=== PATIENT | male | born 1955 | race Caucasian/White ===

== ENCOUNTER 2018-12-20 12:41 | Inpatient (IN) | payer OTHER, SELFPAY ==
[2018-12-20] VITALS (8 sets, daily range): BP systolic 150–162; BP diastolic 73–94; PULSE 68–77; RESP 16–19; TEMP 36.1–37.1; O2SAT 95–98; BMI 33.0
--- NOTE | 2018-12-20 12:53 | DI.CT.S_ITS ---
PROCEDURE: CT HEAD/BRAIN WO CON INDICATIONS: numness left side TECHNIQUE: Noncontrast 4.5 mm thick angled axial sections acquired from the foramen magnum to the vertex, with coronal and sagittal reformats. For radiation dose reduction, the following was used: automated exposure control, adjustment of mA and/or kV according to patient size. COMPARISON: None. FINDINGS: Image quality: Excellent. CSF spaces: Basal cisterns are patent. No extra-axial fluid collections. The ventricles are symmetric in size and shape. Brain: No intracranial bleeds or masses. There is cerebral volume loss for age, with resultant ventricular and sulcal prominence. There are periventricular and deep white matter chronic small vessel ischemic changes. There is intracranial internal carotid artery atherosclerosis. Skull and face: Calvarium and visualized facial bones appear intact, without suspicious lesions. Sinuses: Mild mucosal thickening in the visualized right maxillary sinus. The mastoids are clear. IMPRESSION: No acute intracranial disease process. Findings telephoned to on 12/20/2018 at 1307 hrs. Dictated by: Charlette Recio MD, PhD on 12/20/2018 at 13:12 Approved by: Charlette Recio MD, PhD on 12/20/2018 at 13:15
--- NOTE | 2018-12-20 13:04 | ED.NEUROSD ---
HPI - Neuro Symptoms/Deficit General Chief Complaint: Neuro Symptoms/Deficit Stated Complaint: left side numbness x1 hour Time Seen by Provider: 12/20/18 12:53 Source: patient Mode of arrival: ambulatory Limitations: no limitations History of Present Illness HPI Narrative: Patient is a 63-year-old male who presents as a code stroke symptoms started 1 hour ago when he got out of the shower. He noticed that his left face and left arm were tingling and numb. He then noticed that he was having some difficulty walking that his left leg may be also felt weird. He has not fallen he was able to walk from the car to the emergency department. He has no chest pain no visual changes no actual weakness. He some chronic back pain and has some ambulation issues at baseline but he states that this is different. Timing confirmed by: spouse Location: left face and left arm Related Data Home Medications Medication Instructions Recorded Confirmed fexofenadine 60 mg PO PRN PRN #0 10/14/17 12/20/18 omeprazole 20 mg PO PRN #0 10/14/17 Allergies Allergy/AdvReac Type Severity Reaction Status Date / Time No Known Drug Allergies Allergy Verified 12/20/18 13:17 Review of Systems Review of Systems GENERAL: Denies chills, fatigue, malaise, fever, sweats, travel HEENT: Denies sinus pain, ear pain, sore throat, difficulty swallowing, neck pain RESPIRATORY: Denies dyspnea, cough, wheezing, hemoptysis, sputum. CARDIOVASCULAR: Denies chest pain, palpitations, orthopnea, edema GASTROINTESTINAL: Denies nausea, vomiting, abdominal pain, diarrhea, constipation, melena. : Denies dysuria, frequency, incontinence, hematuria, urinary retention, flank pain. MUSCULOSKELETAL: Denies weakness, joint pain, or bony pain SKIN: No rash, no erythema, no pruritus NEUROLOGIC: See HPI PSYCHIATRIC: No concerning psychosocial issues. 12 point review of systems is negative except for those stated above and HPI [facility] Medical History Patient denies significant medical history (Acute) Social History household members: significant other Smoking Status: Former smoker Social History household members: significant other Smoking Status: Former smoker Exam Initial Vital Signs Initial Vital Signs: Vital Signs Temperature 96.9 F L 12/20/18 12:41 Pulse Rate 72 12/20/18 12:41 Respiratory Rate 18 12/20/18 12:41 Blood Pressure 162/81 H 12/20/18 12:41 Pulse Oximetry 95 12/20/18 12:41 GENERAL: Well-appearing, well-nourished and in no acute distress. HEENT: Head atraumatic,EOMI, pupils reactive, CARDIOVASCULAR: Regular rate and rhythm without murmurs, rubs or gallops. RESPIRATORY: Breath sounds equal bilaterally, no wheezes rales or rhonchi. ABDOMEN: Soft, nontender. Normoactive bowel sounds all 4 quadrants. No guarding or rebound. EXTREMITIES: Normal range of motion, no clubbing or edema. Neurovascularly intact NEUROLOGICAL: Alert and oriented x4.Normal gait and speech. Cranial nerves II through XII grossly intact. Good [id number], good [id number], strength equal bilaterally, no dysarthria or aphasia, sensation in tact to soft touch decreased on left side, no visual changes, no facial droop SKIN: Warm, dry, no laceration, no petechiae, no rashes or lesions. Scores NIH Stroke Scale Level of Conciousness: Alert, keenly responsive Ask month/age: Answers both questions correctly. Open/close eyes, close hand: Performs both tasks correctly Best gaze horizontal: Normal Visual marie: No visual loss Facial palsy: Normal symetrical movement Left arm drift: No drift for full 10 sec Right arm drift: No drift for full 10 sec Left leg drift: No drift for full 10 sec Right leg drift: No drift for full 10 sec Limb ataxia: Absent Sensory on face/arms/legs: Mild to moderate sensory loss, can tell touch Best language: No aphasia, normal Dysarthria: Normal Extinction or inattention: No abnormality Total NIH Stroke scale score: 1 Course Orders Ordered: ED Orders 12/20/18 12:53 CT head/brain wo con Stat 12/20/18 13:04 Complete Blood Count AUTO DIFF Stat Comprehensive Metabolic Panel Stat Partial Thromboplastin Time Stat Prothrombin Time INR Stat Troponin & CK Cardiac Panel Stat 12/20/18 13:06 EKG-12 Lead Stat 12/20/18 14:00 Consult to Discharge Planning Routine Consult to Occupational Therapy Evaluate & Treat Consult to Physical Therapy Evaluate & Treat Education, smoking cessation ONGOING 12/20/18 14:05 Education, smoking cessation ONGOING 12/21/18 EC echo doppler complete Urgent BMP [Basic Metabolic Panel] Urgent Complete Blood Count AUTO DIFF Stat Lipid Panel Urgent 12/21/18 14:00 MR stroke Urgent Aspirin (Aspirin Ec) 81 mg PO DAILY NALDO Sodium Chloride (Normal Saline 0.9%) 1,000 mls @ 150 mls/hr IV CONT NALDO Last Infusion: 12/20/18 14:03 Dose: 150 mls/hr Admin: 12/20/18 13:24 Dose: 150 mls/hr Discontinued Medications Aspirin (Aspirin Chew) 324 mg PO NOW ONE Stop: 12/20/18 13:24 Last Admin: 12/20/18 13:24 Dose: 324 mg Consultations Consultation #1: Dr. Joe neurology consult in regards to patient's symptoms. NIH is 1 at this time no tPA. Risk outweighs benefit Time: 13:08 Vital Signs - 8 hr 12/20/18 12:41 12/20/18 13:25 12/20/18 13:58 Temperature 96.9 F L Pulse Rate 72 73 72 Respiratory Rate 18 19 18 Blood Pressure 162/81 H Blood Pressure [Left Arm] 150/83 H 153/84 H Pulse Oximetry 95 98 96 12/20/18 14:01 12/20/18 14:30 Temperature Pulse Rate 77 Respiratory Rate 17 Blood Pressure Blood Pressure [Left Arm] 156/80 H Pulse Oximetry 95 98 MDM - Neuro Symptoms/Deficit Lab Data Attestation: I reviewed the patient's lab results. Result diagrams: 12/20/18 13:04 12/20/18 13:04 Lab Results 12/20/18 12/20/18 12/20/18 Range/Units 13:04 13:04 13:04 WBC 8.3 (4.5-11.0) X10^3/uL RBC 4.39 L (4.5-5.9) X10^6/uL Hgb 15.4 (13.5-17.5) g/dL Hct 44.9 (41-53) % MCV 102.4 H (80-100) fL MCH 35.1 H (26-34) PG MCHC 34.2 (30-36) % RDW 14.0 (11.6-14.8) % Plt Count 257 (150-400) X10^3/uL Neut % (Auto) 66.7 (50-75) % Lymph % (Auto) 19.4 L (25-40) % [place] % (Auto) 8.9 (3-14) % Eos % (Auto) 3.6 (2-4) % Baso % (Auto) 1.4 (0-2) % Neut # (Auto) 5500 (8606-2527) /uL Lymph # (Auto) 1600 (8171-5169) /uL [place] # (Auto) 700 (0-900) /uL Eos # (Auto) 300 (0-450) /uL Baso # (Auto) 100 (0-100) /uL PT 10.5 (10.1-12.7) SECONDS INR 0.9 (0.9-1.3) APTT 32 (26.4-36.2) SECONDS Sodium 139 (137-145) mmol/L Potassium 4.1 (3.4-5.1) mmol/L Chloride 105 (98-107) mmol/L Carbon Dioxide 24 (22-32) mmol/L BUN 12 (9-20) mg/dL Creatinine 0.90 (0.66-1.25) mg/dL Estimated GFR > 60.0 (>60) mL/min BUN/Creatinine Ratio 13.3 (6-22) Glucose 113 H (80-110) mg/dL Calcium 9.4 (8.4-10.2) mg/dL Total Bilirubin 0.7 (0.2-1.3) mg/dL AST 35 (17-59) IU/L ALT 37 (21-72) IU/L Alkaline Phosphatase 56 (38-126) U/L Total Creatine Kinase 79 (55-170) U/L CK-MB (CK-2) TNP CK-MB (CK-2) Rel Index TNP Troponin I < 0.012 (0.01-0.034) ng/mL Total Protein 7.9 (6.3-8.2) g/dL Albumin 4.6 (3.5-5.0) g/dL Globulin 3.3 (1.7-4.1) g/dL Albumin/Globulin Ratio 1.4 (1.0-2.8) Imaging Data CT scan - head: Radiologist's impression: PROCEDURE: CT HEAD/BRAIN WO CON INDICATIONS: numness left side TECHNIQUE: Noncontrast 4.5 mm thick angled axial sections acquired from the foramen magnum to the vertex, with coronal and sagittal reformats. For radiation dose reduction, the following was used: automated exposure control, adjustment of mA and/or kV according to patient size. COMPARISON: None. FINDINGS: Image quality: Excellent. CSF spaces: Basal cisterns are patent. No extra-axial fluid collections. The ventricles are symmetric in size and shape. Brain: No intracranial bleeds or masses. There is cerebral volume loss for age, with resultant ventricular and sulcal prominence. There are periventricular and deep white matter chronic small vessel ischemic changes. There is intracranial internal carotid artery atherosclerosis. Skull and face: Calvarium and visualized facial bones appear intact, without suspicious lesions. Sinuses: Mild mucosal thickening in the visualized right maxillary sinus. The mastoids are clear. IMPRESSION: No acute intracranial disease process. Findings telephoned to on 12/20/2018 at 1307 hrs. Dictated by: Charlette Recio MD, PhD on 12/20/2018 at 13:12 ECG Data Attestation: I personally reviewed and interpreted this ECG as follows: Prior ECG tracings: available for review Interpretation: Normal sinus rhythm 70 no changes P interval 180 QTC 414 no previous to compare MDM Narrative Medical decision making narrative: Patient is within tPA window. However patient's NIH stroke scale is 1. Risks outweigh the benefits at this time. The patient ambulated around the room for me appreciate any ataxia on exam. He certainly has good strength all around. At this time will admitted for CVA Dr. Pickard conveniently in the to see and evaluate patient Discharge Plan Departure Patient Disposition: Admitted As Inpatient Clinical Impression: Cerebrovascular accident Qualifiers: CVA mechanism: unspecified Qualified Code(s): I63.9 - Cerebral infarction, unspecified Discharge Date/Time: 12/20/18 14:07 Interventions: ED Discharge Assessment Last Done: 12/20/18 14:06 Admit Date/Time: 12/20/18 13:28 Admit Provider: Alvin Pickard
[2018-12-20 13:20] LABS: Add Manual Diff / Slide Review NO; Basophils Absolute Auto 100 /uL (0-100); Basophils Percent Auto 1.4 % (0-2); Eosinophils Absolute Auto 300 /uL (0-450); Eosinophils Percent Auto 3.6 % (2-4); Hematocrit 44.9 % (41-53); Hemoglobin 15.4 g/dL (13.5-17.5); Lymphocytes Absolute Auto 1600 /uL (1100-4500); Lymphocytes Percent Auto 19.4 % (25-40); Mean Corpuscular HGB Conc 34.2 % (30-36); Mean Corpuscular Hemoglobin 35.1 PG (26-34); Mean Corpuscular Volume 102.4 fL (80-100); Monocytes Absolute Auto 700 /uL (0-900); Monocytes Percent Auto 8.9 % (3-14); Neutrophils Absolute Auto 5500 /uL (1500-7000); Neutrophils Percent Auto 66.7 % (50-75); Platelet Count 257 X10^3/uL (150-400); Red Blood Cell Count 4.39 X10^6/uL (4.5-5.9); White Blood Cell Count 8.3 X10^3/uL (4.5-11.0)
[2018-12-20] MEDS: ASPIRIN 81 MG TAB 324 MG PO (13:24)
[2018-12-20] MEDS: SODIUM CHLORIDE 0.9% 1,000 ML 150 ML IV ×2 (13:24→20:23)
[2018-12-20 13:28] LABS: INR 0.9 (0.9-1.3); Prothrombin Time 10.5 SECONDS (10.1-12.7)
[2018-12-20 13:31] LABS: PTT Partial Thromboplastin Tim 32 SECONDS (26.4-36.2)
[2018-12-20 13:32] LABS: Alanine Aminotransferase 37 IU/L (21-72); Albumin 4.6 g/dL (3.5-5.0); Albumin Globulin Ratio 1.4 (1.0-2.8); Alkaline Phosphatase 56 U/L (38-126); Aspartate Aminotransferase 35 IU/L (17-59); BUN Creatinine Ratio 13.3 (6-22); Bilirubin Total 0.7 mg/dL (0.2-1.3); Blood Urea Nitrogen 12 mg/dL (9-20); Calcium 9.4 mg/dL (8.4-10.2); Carbon Dioxide 24 mmol/L (22-32); Chloride 105 mmol/L (98-107); Creatine Kinase 79 U/L (55-170); Estimated Glomerular Filt Rate > 60.0 mL/min (>60); Globulin 3.3 g/dL (1.7-4.1); Glucose 113 mg/dL (80-110); HEMOLYSIS 17 (0-50); Potassium 4.1 mmol/L (3.4-5.1); Sodium 139 mmol/L (137-145); Total Protein 7.9 g/dL (6.3-8.2)
[2018-12-20 13:44] LABS: Troponin I < 0.012 ng/mL (0.01-0.034)
--- NOTE | 2018-12-20 14:12 | P.HP_ITS ---
History of Present Illness Date Patient Seen: 12/20/18 Time Patient Seen: 14:07 Chief complaint: left side numbness x1 hour Narrative: This patient of Dr. Gupta was usually in good health presents with an hour and a half history of left arm numbness. It started was in the shower. All in his left hand. Seemed to extend up to his left shoulder. No chest pain. No palpitations. No dyspnea on exertion all changes. No headaches. No visual changes. Patient tried to lay down for a little bit and got up and moved just felt weak on the left side. [place] like his balance was off. Did not have any spinning or other changes. No lightheadedness. Continued to feel that way so presented to the emergency room. Patient otherwise has had no other significant changes. Has never had any significant neurologic events. Does not take aspirin. Patient apparently has a history of mildly elevated blood pressure which has been true in the clinic for a while. But no medication was started. He also apparently has had an elevated cholesterol and discussions of statins have been discussed. Did not start him. No other significant changes. Past medical history significant for mild elevation of blood pressure and hyperlipidemia but no other significant changes. Past surgical history. Right leg status post accident many years ago with internal fixation. Medications none. Allergies none. Habits no smoking, no drugs, daily alcohol 1-2 drinks. Social history. 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 . Family history is significant for no strokes. Dad of dementia. No major medical problems. Mom had breast cancer. Sister 2 years older healthy. Patient History Social History Smoking Status: Former smoker Family & Social History Safety & Behavioral: Feels Safe in Current Yes Environment Been Physically Hurt or No Threatened By a Person Tobacco & Substance use: Smoking Status Former smoker alcohol intake frequency 0-2 drinks per day Substance Use Type does not use Meds Home Medications Medication Instructions Recorded Confirmed Type fexofenadine 60 mg PO PRN PRN #0 10/14/17 History omeprazole 20 mg PO #0 10/14/17 History Allergies Allergy/AdvReac Type Severity Reaction Status Date / Time No Known Drug Allergies Allergy Verified 12/20/18 13:17 Review of Systems Review of Systems All systems reviewed & are unremarkable except as noted in HPI and below Exam Vital Signs (past 8 hours): - 12/20/18 12:41 12/20/18 13:25 12/20/18 13:58 Temperature 96.9 F L Pulse Rate 72 73 72 Respiratory Rate 18 19 18 Blood Pressure 162/81 H Blood Pressure [Left Arm] 150/83 H 153/84 H Pulse Oximetry 95 98 96 12/20/18 14:01 Temperature Pulse Rate 77 Respiratory Rate 17 Blood Pressure Blood Pressure [Left Arm] 156/80 H Pulse Oximetry 95 Oxygen Delivery Method Room Air Oxygen Flow Rate 0 Narrative Exam Narrative: Alert male in no acute distress mildly interactive. Skin without rash or abnormality. Normal turgor. HEENT exam shows pupils are equal response to light. Posterior pharynx is unremarkable. No oral lesions. Neck is supple without adenopathy JVD or bruits. Lungs are clear. Heart regular rate and rhythm without murmurs clicks rubs or gallops. Abdomen is soft positive bowel sounds nontender mildly obese. Extremities without cyanosis clubbing edema. Good pulses distally. Neurologic exam shows cranial nerves 2- 12 are intact. Patient is alert and oriented. Sensation appears to be intact although subjectively decreased on the left side. Reflexes are 2+ and symmetric. Patient has decreased strength at 4+ on the left leg and maybe slightly decreased strength in the left arm. Did not walk. Bxvoib-[id number] and xuzq-fa-sacd were normal. Although maybe slightly more difficulty with the left hand psychologically normal Objective Labs Result Diagrams: 12/20/18 13:04 12/20/18 13:04 Labs: Laboratory Results - last 24 hr 12/20/18 12/20/18 12/20/18 13:04 13:04 13:04 WBC 8.3 RBC 4.39 L Hgb 15.4 Hct 44.9 MCV 102.4 H MCH 35.1 H MCHC 34.2 RDW 14.0 Plt Count 257 Neut % (Auto) 66.7 Lymph % (Auto) 19.4 L [place] % (Auto) 8.9 Eos % (Auto) 3.6 Baso % (Auto) 1.4 Neut # (Auto) 5500 Lymph # (Auto) 1600 [place] # (Auto) 700 Eos # (Auto) 300 Baso # (Auto) 100 PT 10.5 INR 0.9 APTT 32 Sodium 139 Potassium 4.1 Chloride 105 Carbon Dioxide 24 BUN 12 Creatinine 0.90 Estimated GFR > 60.0 BUN/Creatinine Ratio 13.3 Glucose 113 H Calcium 9.4 Total Bilirubin 0.7 AST 35 ALT 37 Alkaline Phosphatase 56 Total Creatine Kinase 79 CK-MB (CK-2) TNP CK-MB (CK-2) Rel Index TNP Troponin I < 0.012 Total Protein 7.9 Albumin 4.6 Globulin 3.3 Albumin/Globulin Ratio 1.4 CT scan of the head was unremarkable Assessment & Plan Assessment & Plan narrative: Left-sided numbness arm and weakness which has persisted. An otherwise healthy male with questionable increased blood pressure and hyperlipidemia. NIH 1. Discussed with [place] Citizen. Would not do any further treatment less change. Aspirin has been given. Will obtain cholesterol tomorrow morning MRI tomorrow and echo tomorrow and see how things are. Will watch closely with stroke protocol. Will not manage blood pressure any different it is now and will follow. Patient understands questions answered discussed with him and his .
--- NOTE | 2018-12-20 16:01 | PC.NURSE ---
Day Shift- Report rec'd from ED by RN Coordinator. Pt arrived to unit via stretcher at 1410. Pt stated he walked from stretcher to bed. A&OX4, oriented to call light. Denies pain, nausea, shortness of breath, chest pain. NIH score is 2. Pt c/o left side numbness to face and extending to left limbs. Pt states overall feeling weaker to left side compared to his baseline. NIH score performing tasks, pt has fairly equal strength to his extremities. Pt's Crystal at bedside. Aware of MRI, ECHO, and lab work pending tomorrow.
[2018-12-21] VITALS (10 sets, daily range): BP systolic 141–179; BP diastolic 82–98; PULSE 68–78; RESP 16; TEMP 36.4–37; O2SAT 92–96
--- NOTE | 2018-12-21 | DI.ECHO.S_ITS ---
[place] +---------+ [facility] +---------+ : : [address] : : : : [id number] : : : : Phone: [phone]+ Echocardiogram Report + + :Name: RICKEY MASSEY Study Date: 12/21/2018 Height: 75 in : :[facility] Exam Location: IS Weight: 257 lb : : Gender: Male BSA: 2.4 m2 : :: 1955 Age: 63 yrs BP: 151/80 mmHg: :Reason For Study: Left sided numbness and weakness : :Ordering Physician: Alvin : :Neeraj Performed By: Yamileth Page : + + Interpretation Summary -Doppler imaging at proximal ascending aorta demonstrates a vascular structure anterior to the ascending aorta with continuous flow which is more prominent during diastole. This could represent a normal structure such as right coronary artery with a high take off or, less likely but possible, a false lumen and aortic dissection. -There is no other echocardiographic finding of dissection; specifically, there is no aortic insufficiency, aortic root is normal size and there is no perocardial effusion. However, given presentation with stroke-like symptoms, recommend a chest CTA for further evaluation. -The findings were communicated to Dr. Gonzalez. Procedure: A two-dimensional transthoracic echocardiogram with color flow and Doppler was performed. The study quality was technically adequate. There is no prior echocardiogram noted for this patient. A saline contrast injection was performed to assess for cardiac shunting. The patient was in normal sinus rhythm during the exam. Left Ventricle: The left ventricle is normal in size, wall thickness, and systolic function without any focal wall motion abnormalities. Proximal septal thickening is noted. The ejection fraction is estimated to be 60-65%. Diastolic parameters suggest a relaxation abnormality of the left ventricle, consistent with probable normal filling pressures. Right Ventricle: The right ventricle is normal in size and function. Atria: The left atrial size is normal. Right atrial size is normal. There is no Doppler evidence for an interatrial shunt. Injection of contrast documented no interatrial shunt. Mitral Valve: The mitral valve is normal in structure and function. There is trace mitral regurgitation. Aortic Valve: The aortic valve is trileaflet. The aortic valve is mildly calcified. There is no aortic valve stenosis. No aortic regurgitation is present. Tricuspid Valve: The tricuspid valve is normal in structure and function. There is a trace or physiologic amount of tricuspid regurgitation. Pulmonary artery pressures cannot be estimated because of the lack of a measurable TR jet velocity. Pulmonic Valve: The pulmonic valve is not well visualized. There is a trace or physiologic amount of pulmonic regurgitation. Great Vessels: The aortic root is normal size. The ascending aorta is at the upper limits of normal in size. The pulmonary artery is not well visualized, but is probably normal size. The IVC is dilated (diameter is greater than 2.1 cm) yet it collapses greater than 50% with a sniff. This suggests a right atrial pressure of 8 mm Hg. Pericardium/ Pleura There is no pericardial effusion. There is no pleural effusion. MMode/2D Measurements & Calculations LVIDd: 4.2 cm LVOT diam: 2.3 cm LVIDs: 3.0 cm Ao root diam: 3.7 cm FS: 30.2 % asc Aorta Diam: 3.4 cm EPSS: 0.00 cm IVSd: 1.1 cm LVPWd: 0.91 cm LV anders. diameter/BSA (cm/m^2): 1.7 LV sys. diameter/BSA (cm/m^2): 1.2 LA A2 area: 28.7 cm2 RA long axis: 5.0 cm LA A4 area: 23.7 cm2 RA area: 18.7 cm2 LA length (vol): 6.0 cm RA vol: 59.5 ml LA vol: 96.2 ml RA : 24.4 ml/m2 LA vol index: 39.4 ml/m2 IVC diam: 2.6 cm RVD1 (basal): 4.5 cm RVD2 (mid): 3.5 cm TAPSE: 2.0 cm Doppler Measurements & Calculations Ao V2 max: 180.5 cm/sec LVOT Max Damon: 96.9 cm/sec Ao V2 mean: 129.1 cm/sec LV V1 max P.8 mmHg Ao max P.0 mmHg LV V1 VTI: 20.1 cm Ao mean P.4 mmHg GWEN(I,D): 2.6 cm2 Ao V2 VTI: 33.6 cm GWEN(V,D): 2.3 cm2 sev ratio: 0.60 GWEN indexed to BSA (cm^2/m^2): 1.1 MV E max damon: 60.5 cm/sec PA V2 max: 76.5 cm/sec MV A max damon: 73.9 cm/sec PA V2 mean: 58.1 cm/sec MV E/A: 0.82 PA mean P.4 mmHg Med Peak E' Damon: 6.1 cm/sec PA Accel Time: 0.08 sec E/E' med: 9.9 Lat Peak E' Damon: 12.6 cm/sec E/E' lat: 4.8 E/e' average: 7.4 MV dec time: 0.25 sec MV P1/2t: 72.9 msec MV P1/2t max damon: 60.3 cm/sec SV(LVOT): 86.8 ml MVA(P1/2t): 3.0 cm2 Electronically signed by: Trey Renee M.D. on Reading Physician:12/21/2018 05:06 PM
--- NOTE | 2018-12-21 00:39 | PC.NURSE ---
2300- Pt admit for L sided numbness & tingling on both arm and leg. States weakness has gone away since admit, but numbness still remains. Qshift NIH scores taking place w/ highest of 2; moving independently in room; tolerating regular diet. Qshift BG checks. Pt aware he is fasting now until lipid panel at 0500. NS running as ordered into R AC. 0000- NIH score of 1. 0400- No changes in mentation or NIH. NS running per orders.
[2018-12-21] MEDS: SODIUM CHLORIDE 0.9% 1,000 ML 150 ML IV ×2 (03:07→10:01)
[2018-12-21 06:53] LABS: Add Manual Diff / Slide Review NO; Basophils Absolute Auto 100 /uL (0-100); Basophils Percent Auto 1.2 % (0-2); Eosinophils Absolute Auto 500 /uL (0-450); Eosinophils Percent Auto 6.8 % (2-4); Hematocrit 42.5 % (41-53); Hemoglobin 14.9 g/dL (13.5-17.5); Lymphocytes Absolute Auto 1900 /uL (1100-4500); Lymphocytes Percent Auto 24.4 % (25-40); Mean Corpuscular Hemoglobin 35.9 PG (26-34); Mean Corpuscular Volume 102.6 fL (80-100); Monocytes Absolute Auto 600 /uL (0-900); Monocytes Percent Auto 7.7 % (3-14); Neutrophils Absolute Auto 4700 /uL (1500-7000); Neutrophils Percent Auto 59.9 % (50-75); Platelet Count 235 X10^3/uL (150-400); Red Blood Cell Count 4.14 X10^6/uL (4.5-5.9); Red Cell Distribution Width 14.1 % (11.6-14.8); White Blood Cell Count 7.8 X10^3/uL (4.5-11.0)
[2018-12-21 07:05] LABS: BUN Creatinine Ratio 11.3 (6-22); Blood Urea Nitrogen 9 mg/dL (9-20); Calcium 8.9 mg/dL (8.4-10.2); Carbon Dioxide 27 mmol/L (22-32); Chloride 105 mmol/L (98-107); Cholesterol 224 mg/dL (140-199); Estimated Glomerular Filt Rate > 60.0 mL/min (>60); Glucose 101 mg/dL (80-110); HDL Cholesterol 46 mg/dL (40-60); HEMOLYSIS < 15 (0-50); LDL Cholesterol Calculated 141 mg/dL (<100); Potassium 3.8 mmol/L (3.4-5.1); Sodium 137 mmol/L (137-145); Triglycerides 183 mg/dL (35-150)
--- NOTE | 2018-12-21 08:33 | PM.PN.1 ---
Subjective Date Patient Seen: 12/21/18 Time Patient Seen: 08:33 Interval history: Patient seen in follow-up of left-sided numbness. Patient feeling really no different. Reporting facial numbness which apparently he had yesterday but did not say anything about. All left-sided. All left-sided numbness of the hand and leg. Got up and walked. Still feeling unsteady. But was able to get up and urinate. No other changes Exam Vital Signs (past 8 hours): - 12/21/18 05:03 12/21/18 08:03 Temperature 98.6 F 97.5 F L Pulse Rate 68 78 Respiratory Rate 16 16 Blood Pressure 168/92 H 165/82 H Pulse Oximetry 96 95 Oxygen Delivery Method Room Air Oxygen Flow Rate 0 Narrative Exam Narrative: Alert male sitting comfortably in no acute distress. Lungs are clear. Heart regular rate and rhythm. Abdomen is soft positive bowel sounds nontender. Neurologic exam is unchanged. Still seems a little weak on the left leg but no definitive other findings. Objective Labs Result Diagrams: 12/21/18 06:30 12/21/18 06:30 Labs: Laboratory Results - last 24 hr 12/20/18 12/20/18 12/20/18 13:04 13:04 13:04 WBC 8.3 RBC 4.39 L Hgb 15.4 Hct 44.9 MCV 102.4 H MCH 35.1 H MCHC 34.2 RDW 14.0 Plt Count 257 Neut % (Auto) 66.7 Lymph % (Auto) 19.4 L [place] % (Auto) 8.9 Eos % (Auto) 3.6 Baso % (Auto) 1.4 Neut # (Auto) 5500 Lymph # (Auto) 1600 [place] # (Auto) 700 Eos # (Auto) 300 Baso # (Auto) 100 PT 10.5 INR 0.9 APTT 32 Sodium 139 Potassium 4.1 Chloride 105 Carbon Dioxide 24 BUN 12 Creatinine 0.90 Estimated GFR > 60.0 BUN/Creatinine Ratio 13.3 Glucose 113 H Calcium 9.4 Total Bilirubin 0.7 AST 35 ALT 37 Alkaline Phosphatase 56 Total Creatine Kinase 79 CK-MB (CK-2) TNP CK-MB (CK-2) Rel Index TNP Troponin I < 0.012 Total Protein 7.9 Albumin 4.6 Globulin 3.3 Albumin/Globulin Ratio 1.4 Triglycerides Cholesterol LDL Cholesterol, Calc HDL Cholesterol 12/21/18 12/21/18 12/21/18 06:30 06:30 06:30 WBC 7.8 RBC 4.14 L Hgb 14.9 Hct 42.5 MCV 102.6 H MCH 35.9 H MCHC 35.0 RDW 14.1 Plt Count 235 Neut % (Auto) 59.9 Lymph % (Auto) 24.4 L [place] % (Auto) 7.7 Eos % (Auto) 6.8 H Baso % (Auto) 1.2 Neut # (Auto) 4700 Lymph # (Auto) 1900 [place] # (Auto) 600 Eos # (Auto) 500 H Baso # (Auto) 100 PT INR APTT Sodium 137 Potassium 3.8 Chloride 105 Carbon Dioxide 27 BUN 9 Creatinine 0.80 Estimated GFR > 60.0 BUN/Creatinine Ratio 11.3 Glucose 101 Calcium 8.9 Total Bilirubin AST ALT Alkaline Phosphatase Total Creatine Kinase CK-MB (CK-2) CK-MB (CK-2) Rel Index Troponin I Total Protein Albumin Globulin Albumin/Globulin Ratio Triglycerides 183 H Cholesterol 224 H LDL Cholesterol, Calc 141 H HDL Cholesterol 46 Assessment & Plan Assessment & Plan narrative: Left-sided numbness arm and leg weakness mild. No real change. Awaiting MRI. On an aspirin. Tele was negative. Echo today. Physical therapy today. Depending on results home tomorrow if stable. Quality VTE Deep Vein Thrombosis/Pulmonary Embolism Present on Admission: No
--- NOTE | 2018-12-21 09:21 | CM.DANOTE ---
DCP: Case received, EMR reviewed and met with patient. Introduced self and role. White board updated in patient's room. Retrieved information from patient, regarding his baseline health. DCP template completed with information obtained. Patient is a 63 year old male who admitted yesterday afternoon to the care of the hospitalist team. PCP: Dr. Gupta. Payer: confirmed: [facility]. Patient came to hospital due to numbness and tingling on his left arm, as well as shoulder and leg. He had an MRI this morning. Patient also has history of HTN. Met briefly with patient. He is alert and oriented, works out of his home. He stated, even though he is having these symptoms, he's able to walk and get around. He resides with his , Linsey, in [facility]. P: DCP to continue to follow. Patient should be able to go home when stable. Ericka Burns RN/Store Sales Consultant
[2018-12-21] MEDS: ASPIRIN EC 81 MG TABLET PO (10:01)
--- NOTE | 2018-12-21 10:09 | PC.NURSE ---
AM NOTE - alert, no complaint pain, MRI in this am and taken for scan via wc, ret to bed, states continues with tingling, numb type sensations along l lip area, lue, lle, able to move all extremities, hold straight for count 10, personnel monitor are equal and strong, bs clear, states no dizziness when standby assist to br to void, +bt, no nausea, salomón gen diet. ra 98%, hr 78.
--- NOTE | 2018-12-21 11:10 | PT.IIE ---
Medical History (Last Reviewed 12/20/18 @ 16:31 by Mimi Adams DO) Patient denies significant medical history (Acute) Physical Therapy Inpatient Evaluation/Re-Eval M1 PT/OT-IP Prior Functional Status Start: 12/21/18 08:19 Freq: NEEDED Status: Active Protocol: Document 12/21/18 11:10 RS (Rec: 12/21/18 13:06 RS [email or web address]) Medical Review Prior Functional Status Medical History Reviewed Yes Diet/Fluid Consistency Regular Communication no known deficits Mobility and Gait completely ind, no AD, no falls Activities of Daily Living and IADL's ind Prior Functional Level (Other details) considers himself active Social History Household Members significant other Living Arrangements House Number of Floors (Floors) One Floor Employment Status [employer] Employed Additional Social History 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 M2 PT-IP Current Condition Start: 12/21/18 08:19 Freq: NEEDED Status: Active Protocol: Document 12/21/18 11:10 RS (Rec: 12/21/18 13:06 RS [email or web address]) Physical Therapy Current Condition Current Condition Evaluation Date 12/21/18 Treatment Diagnosis L weakness Onset Date 12/20/18 M3 PT-IP Subjective Start: 12/21/18 08:19 Freq: NEEDED Status: Active Protocol: Document 12/21/18 11:10 RS (Rec: 12/21/18 13:06 RS [email or web address]) Subjective Physical Therapy Visit Type Type Initial Evaluation Visit Start Time 10:30 Visit Stop Time 11:10 Total Visit Minutes 40 Physical Therapy Visit Comments Patient Comments Pt feels like his strength is improved on the L side but still doesn't feel normal. Patient Goals go home, get back to normal Therapy Pain Assessment Pain When Pain Assessed During Mobility Pain Present Pain Present Denied Pain M4 PT-IP Mobility and Gait Start: 12/21/18 08:19 Freq: NEEDED Status: Active Protocol: Document 12/21/18 11:10 RS (Rec: 12/21/18 13:06 RS [email or web address]) PT-Bed Mobility Assessment Rolling Level of Assist Independent Supine to Sit Supine to Sit Independent Sit to Supine Sit to Supine Independent Scooting Scooting to Edge of Bed Independent Scooting Up and Down in Bed Independent PT-Transfer Assessment Sit to and From Stand Sit to and from Stand Independent Equipment Transfer Assistive Device None Transfers Transfer Destination Bed Chair Transfer Technique walked Transfer Ability Level of Assist Independent Gait Assessment Gait Gait Assistance Required: Independent Distance (Feet) 500 Assistive Devices Assistive Device None Gait Deviations General Gait Pattern Within Normal Limits Stair Climbing Assessment Evaluation Level of Assist On Stairs Independent Devices Stair Climbing Assistive Devices None Technique/Endurance Stair Climbing Direction Ascend and Descend PT-Balance Assessment Sitting Balance and Reactions Static Sitting Balance Ability Normal Dynamic Sitting Balance Ability Normal Standing Balance and Reactions Static Standing Balance Ability Normal Dynamic Standing Balance Ability Normal Device Used none Comments Other Balance Tests/Deviations/Treatment CARRERA 56/56, DGI 24/24 : M5 PT-IP Objective Assessments Start: 12/21/18 08:19 Freq: NEEDED Status: Active Protocol: Document 12/21/18 11:10 RS (Rec: 12/21/18 13:06 [email or web address]) Orientation Orientation/Cognition Level of Alertness Alert Orientation Name Age Birthday Month Date Year Day of Week Place Situation Language Function Ability No Deficits Noted Safety Awareness Understands Safety Issues Memory Description No Deficits Noted Gross Range of Motion Upper Extremity ROM Assessment Within Functional Limits Lower Extremity ROM Assessment Within Functional Limits Strength Upper Extremity Strength Assessment Left Impaired Lower Extremity Strength Assessment Left Impaired Comments Strength Comments RUE 5/5, LUE grossly 4/5 RLE 5/5, LLE grossly 4+/5 Coordination Assessment Assessment Finger to Nose Test Minimal Impairment Pronation/Supination Test Normal Performance Foot Tapping Test Normal Performance Heel on Triana Test Normal Performance Sensation Assessment Sensation Gross Sensation Left UE Impaired Light Touch Impaired Proprioception (Position) Impaired Sensation Description Tingling Muscle Tone Muscle Tone WNL No M6 PT-IP Treatment Start: 12/21/18 08:19 Freq: NEEDED Status: Active Protocol: Document 12/21/18 11:10 RS (Rec: 12/21/18 13:06 [email or web address]) Physical Therapy Treatment Education Education Provided Safety M7 PT-IP Assessment and Plan Start: 12/21/18 08:19 Freq: NEEDED Status: Active Protocol: Document 12/21/18 11:10 RS (Rec: 12/21/18 13:06 [email or web address]) PT Summary Assessment and Plan Potential Rehabilitation Potential Excellent Status of Condition at Evaluation Stable Summary Impairments Coordination Sensation Progress Towards Goals Safe For Discharge Assessment Summary Pt presents with mild L sided weakness and impaired coordination that are causing pt to feel a little insecure with ambulation compared to normal. However, pt was completely steady with gait and balance testing, scoring 56/56 Carrera and 24/24 DGI. Patient is at a low fall risk and safe to discharge home once medically cleared. Pt would benefit from OPPT for high level balance and coordination testing to return to PLOF. While patient is still here at , recommend walking at least 3-4x/day, but there are no acute PT goals/ needs at this time. Will sign off. Pt in agreement with this plan. Goals Bed Mobility Goal Independent Transfer Goal Independent Gait Goal Independent Days to Meet Goals 0 Frequency of Treatment Frequency Of Treatment Discharge Recommendations To Nursing Amount of Assist Needed Independent Discharge Recommendations PT Discharge Recommendations Home Outpatient PT Equipment Needed for Home Before none Discharge
--- NOTE | 2018-12-21 14:00 | DI.MRI.S_ITS ---
PROCEDURE: MR STROKE Pre- and post-contrast brain MRI, non-contrast brain MR angiogram, pre- and postcontrast neck MR angiogram INDICATIONS: left side numbness and weakness TECHNIQUE: Brain: Noncontrast axial T1 spin echo, axial T2 fast spin echo, sagittal and axial FLAIR, coronal T2 fast spin echo, axial gradient echo, axial diffusion and ADC through the brain. After the administration of contrast, axial 3D VIBE of the cranial vasculature and brain. Brain MRA: Non-contrast 3-D time of flight MR angiogram, with multiple ehwdyar-wqkssbcnt-onjkaccfin (MIP) reformats performed. Neck MRA: Axial and sagittal TruFISP through the neck. Coronal dynamic MR angiogram during administration of contrast in the arterial and venous phases, with 3-dimenstional yhkzvdu-pamhnzamp-enttijvsml (MIP) reformats constructed from subtraction images. COMPARISON: [facility], CT, CT HEAD/BRAIN WO CON, 12/20/2018, 12:53. FINDINGS: Image quality: Excellent. BRAIN: CSF spaces: Ventricles are normal in size and shape. Basal cisterns are patent. No extra-axial fluid collections. Brain: No intracranial bleeds or mass effects. Ferguson-white matter interface is normal. Diffusion weighted images show a definite focus of acute or subacute ischemic injury to the lentiform nuclei on the right, posterior third, measuring 8 x 8 mm in maximal dimension. This has no mass effect or hemorrhage associated. Mild microvascular atherosclerotic change is seen elsewhere within the deep white matter of each hemisphere.. Brainstem appears normal. Normal intravascular flow voids are present. No abnormal intracranial enhancement. Skull and face: Calvarial marrow signal is normal. Orbits appear normal. Sinuses: Sinuses and mastoids are clear. BRAIN MR ANGIOGRAM: Anterior circulation: Intracranial internal carotid arteries are normal in size and enhancement. The flow within the paired anterior cerebral arteries is normal and symmetric. The flow within the middle cerebral arteries is normal and symmetric. The anterior communicating artery is seen. No stenoses, occlusions, or aneurysms. Posterior circulation: The visualized portions of the vertebral arteries demonstrate normal caliber, and join to form a normal appearing basilar artery. The flow within the posterior cerebral arteries is normal and symmetric. No stenoses, occlusions, or aneurysms. NECK MR ANGIOGRAM: Carotids: Great vessels demonstrate a conventional anatomy as they arise from the aortic arch. The origins of the common carotid arteries appear patent. The calibers and courses of both common carotid arteries are normal. The bifurcation regions appear normal bilaterally. The internal carotid arteries demonstrate normal course and caliber. Posterior circulation: The origins of the vertebral arteries appear patent. More superior portions of both vertebral arteries demonstrate normal course and caliber, and join to form a normal appearing basilar artery. Miscellaneous: Subclavian arteries appear patent. Pre-contrast images through the neck show no soft tissue abnormalities. IMPRESSION: BRAIN MRI: Small lacunar infarction measuring 8 x 8 mm is present, acute or subacute, involving the lentiform nuclei on the right, without mass effect or hemorrhage. This is in an area that appeared entirely normal on CT scanning one day ago, however a small acute infarction present at that time generally would not be detectable by CT scanning. BRAIN MR ANGIOGRAM: Normal intracranial MR angiogram. NECK MR ANGIOGRAM: Normal cervical MR angiogram. Dictated by: Andres Hale M.D. on 12/21/2018 at 9:20 Approved by: Andres Hale M.D. on 12/21/2018 at 9:27
--- NOTE | 2018-12-21 17:00 | DI.CT.S_ITS ---
PROCEDURE: CT ANGIO CHEST INDICATIONS: Possible thoracic aneurysm TECHNIQUE: After the administration of intravenous contrast, 2.5 mm thick sections acquired from the lung apices to the posterior lung bases. Maximum intensity projection (MIP) oblique sagittal reformats were then acquired parallel to the aortic arch. For radiation dose reduction, the following was used: automated exposure control. COMPARISON: None. FINDINGS: Image quality: Excellent. Aorta: Aorta and great vessels are normal in size. No mural irregularity or contrast extravasation to suggest aortic injury. Mediastinum: No hematomas. Heart size is normal. No evidence of coronary arterial calcification. No pericardial effusion. No mediastinal or hilar adenopathy by size criteria. Central pulmonary arteries are normal in size. Esophagus is normal in caliber. Small hiatal hernia. Lungs and pleura: No acute airspace opacities. No pleural effusions or pneumothorax. Central and peripheral airways are patent and normal in caliber. Bones and chest wall: No axillary adenopathy by size criteria. Thyroid gland is within normal limits. No suspicious bony lesions. No vertebral body compression fractures. Abdomen: Visualized portions of the upper abdomen demonstrate diffusely decreased hepatic density. IMPRESSION: 1. No evidence of thoracic aortic aneurysm. 2. No acute process. Dictated by: Rajendra Qureshi M.D. on 12/21/2018 at 17:30 Approved by: Rajendra Qureshi M.D. on 12/21/2018 at 17:32
--- NOTE | 2018-12-21 17:13 | OT.IP.EVAL ---
Past Medical History (Last Reviewed 12/20/18 @ 16:31 by Mimi Adams DO) Patient denies significant medical history (Acute) Occupational Therapy Inpatient Evaluation/Re-Eval M1 PT/OT-IP Prior Functional Status Start: 12/21/18 08:19 Freq: NEEDED Status: Active Protocol: Document 12/21/18 11:10 RS (Rec: 12/21/18 13:06 RS [email or web address]) Medical Review Prior Functional Status Medical History Reviewed Yes Diet/Fluid Consistency Regular Communication no known deficits Mobility and Gait completely ind, no AD, no falls Activities of Daily Living and IADL's ind Prior Functional Level (Other details) considers himself active Social History Household Members significant other Living Arrangements House Number of Floors (Floors) One Floor Employment Status [employer] Employed Additional Social History 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 M1 PT/OT-IP Prior Functional Status Start: 12/21/18 16:45 Freq: NEEDED Status: Active Protocol: Document 12/21/18 16:46 [facility] (Rec: 12/21/18 17:13 [facility] [id number]) Medical Review Prior Functional Status Medical History Reviewed Yes Diet/Fluid Consistency Regular Communication no known deficits Mobility and Gait completely ind, no AD, no falls Activities of Daily Living and IADL's ind Prior Functional Level (Other details) considers himself active Social History Household Members significant other Living Arrangements House Number of Floors (Floors) 3 or More Floors Number of Stairs To Enter/Railing? No steps to the main level . 7 steps with left rail going up , platform, and 7 steps with right rail going up to the bedroom, Basement 7 step , platform and another 7 steps with left handrail. 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 M2 OT-IP Current Condition Start: 12/21/18 16:45 Freq: Status: Active Protocol: Document 12/21/18 16:46 [facility] (Rec: 12/21/18 17:13 [facility] [id number]) Occupational Therapy Current Condition Current Condition Evaluation Date 12/21/18 Treatment Diagnosis Small Lucunar infarction lentiform nuclei on the right Weight Bearing Status Weight Bearing Status Weight Bear as Tolerated M3 OT- IP Subjective and Pain Start: 05/20/19 16:45 Freq: Status: Active Protocol: Document 12/21/18 16:46 [facility] (Rec: 12/21/18 17:13 [facility] [id number]) OT- Subjective Occupational Therapy Visit Type Type Initial Evaluation Visit Start Time 15:00 Visit Stop Time 15:45 Total Visit Minutes 45 Occupational Therapy Visit Comments Patient Comments Pt agreeable to do cognitive assessments along with FMS. OT Pain Assessment Pain When Pain Assessed At Rest Pain Present Pain Present Denied Pain M4 OT- IP ADL's Start: 12/21/18 16:45 Freq: Status: Active Protocol: Document 12/21/18 16:46 [facility] (Rec: 12/21/18 17:13 [facility] [id number]) OT ADL-Toileting General Evaluation Toileting Ability Independent M5 OT- IP IADL's Start: 12/21/18 16:45 Freq: Status: Active Protocol: Document 12/21/18 16:46 [facility] (Rec: 12/21/18 17:13 [facility] [id number]) OT-Instrumental Activities of Daily Living Medication Management Medication Management No Deficits Identified Money Management Money Management Caregiver Provides Assistance Driving Driving Comments Pt states drives. M6 OT- IP Functional Cognition Start: 12/21/18 16:45 Freq: Status: Active Protocol: Document 12/21/18 16:46 [facility] (Rec: 12/21/18 17:13 [facility] [id number]) Cognitive Factors Limiting Selfcare Function Cognitive Ability Level of Alertness Alert Patient Orientation Name Age Birthday Month Date Year Day of Week Place Situation Attention Span Ability Capable of Focused Attention Capable of Sustained Attention Ability to Follow Commands Able to Follow Multi-Step Commands Problem Solving Ability Needs Assist to Identify Solutions Cognitive Tests ACL Pt scored 5.4 put of 6.0 with implies pt may live alone and work in an environment for wide margin of errors. Pt may not be safe to work in job with high potential for industrial accidents. Closter and error problem solving increasing improvement, recognizes conflict but inflexible insisting on own methods despite secondary effects. Cognitive Comments Cognitive Assessment Comments Pt scored 48 second on Closter Making B while implies no deficits for attention, visual screening ability, processing speed, and executive functioning. OT- Vision and Hearing OT- Hearing Assessment OT- Hearing Assessment WFL OT- Vision Assessment Visual Acuity Glasses For Reading M7 OT- IP Mobility and Balance Start: 12/21/18 16:45 Freq: Status: Active Protocol: Document 12/21/18 16:46 [facility] (Rec: 12/21/18 17:13 [facility] [id number]) OT- Bed Mobility Assessment Rolling Type of Rolling Roll to Right OT-Transfer Assessment Sit to and From Stand Sit to and from Stand Independent Transfers Transfer Ability Independent Technique Transfer Destination Bed Comments Mobility Comments Independent for bed mobility and to walk in the room with no device. OT- Balance Assessment Sitting Balance and Reactions Static Sitting Balance Ability Normal Dynamic Sitting Balance Ability Normal Standing Balance and Reactions Static Standing Balance Ability Normal Comments Other Balance Tests/Deviations/Treatment Per PT eval pt scored 56/56 : on the CARRERA. M8 OT- IP Objective Assessments Start: 12/21/18 16:45 Freq: Status: Active Protocol: Document 12/21/18 16:46 [facility] (Rec: 12/21/18 17:13 [facility] [id number]) OT Gross Range of Motion Upper Extremity Range of Motion Assessment Within Functional Limits OT Strength Comments Strength Comments LUE 4/5 OT- Coordination Assessment Upper Extremity Finger to Nose Test Left UE Impaired Comments Coordination Comments Pt able to berry picker coins with left hand, in hand manipulation with increased time and needing to stabilize hand on the table when stacking coins. Pt's left hand coordination less smooth and a bit tremulous at times. Encourage pt to put lotion, different textures to try to help desensitize left arm/leg. In addition to use his hobbies of guitar and piano to help gauge speed, coordination, smoothing of left hand. 9-Hole Peg Hand Test Hand Right Scoring Time 28 Interpretation Impaired Norm For Patients Age/Sex 23 Left Scoring Time 40 Interpretation Impaired Norm For Patients Age/Sex 25 OT Sensation Assessment Comments Summary Comments Pt intact for all sensation for light touch, noted numbness throughout left side. Pt states felt harder to berry picker pegs due to numbness. M9 OT- IP Assessment and Plan Start: 12/21/18 16:45 Freq: Status: Active Protocol: Document 12/21/18 16:46 [facility] (Rec: 12/21/18 17:13 [facility] [id number]) OT Summary Assessment and Plan Potential Rehabilitation Potential Good Analytic Complexity at Evaluation Low Summary OT Impairments Coordination Functional Cognition Functional Mobility Bathing Progress Towards Goals Progressing Toward Goals Assessment Summary Pt low complexity and mild decrease for higher cognitive functioning , however pt feel does to did not sleep well. Decreased coordination of left hand for smaller items, speed and smoothness, otherwise able to get around in the room with no device independently. Pt has a very supportive to assist at home. Educated to be careful especially for IADL and gradually get back to yard work. Goals Bathing Goal Independent Patient/Caregiver Education Goal Caregiver Independent Assisting Patient OT-Other Goals Pt to be able to get on and off the floor independently as pt at home often plays with grand children. Pt to be able to carry waste paper basket to stimulate taking the garbage out at home independently. Days to Meet Goals 2 Frequency of Treatment Frequency Of Treatment Once a Day Treatment Plan OT Treatment Plan ADL Training Functional Cognition Training Functional Mobility Patient/Family Education Discharge Planning Other Treatment Recommendations and Next shower, repeat FMS assessments Treatment Focus Discharge Recommendations OT Discharge Recommendations Home with Assistance Home Equipment Needs possible shower chair
--- NOTE | 2018-12-21 20:40 | PC.NURSE ---
Addendum entered by Jammie Choudhary R.N. 12/21/18 21:48: Patient with BP 179/95, 162/97, notified Dr. Mcclure regarding current high . New order obtained for Metoprolol IR 25 mg PO BID. Original Note: Elizabeth shift note: Patient awake and alert, return from CTA exam in stable condition. NIH 2, c/o numbness and tingling to LLE including feet, toes, upper dorsal thigh, left forearm (extending to elbow), left lower face. No weakness noted. Difficulty with LUE coordination. Patient states symptoms remain unchanged, no worsening through shift. 2030 C/O of constant dull headache, 2/10. States his headache is similar in nature as in the past when at home. Takes Tylenol which provides adequate relief. No changes in sensory or motor deficits. No visual disturbance. Notified Dr. Mcclure, and obtained order for Tylenol 650 mg PO PRN.
[2018-12-21] MEDS: ACETAMINOPHEN 325 MG TABLET 650 MG PO (20:55)
[2018-12-21] MEDS: METOPROLOL IR 25 MG TABLET PO (22:17)
[2018-12-22] VITALS (9 sets, daily range): BP systolic 129–171; BP diastolic 76–90; PULSE 63–74; RESP 16–20; TEMP 36.6–36.9; O2SAT 94–97
--- NOTE | 2018-12-22 00:22 | PC.NURSE ---
2300- Pt admit for L sided numbness/tingling in both arm and leg. 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 See MD notes for MRI & CTa results. Pt aware of why he is still in the hospital being monitored. Saline locked, moving indep in room, qshift BG checks. Telemetry in place reading SR, pt remains HTNsive--new order of PO metoprolol given w/ previous shift. 0000- NIH scoring completed, pt denies pain, VSS. 0400- No changes in pt's mentation or NIH status, cont to move indep in room.
--- NOTE | 2018-12-22 08:58 | P.PN_ITS ---
Subjective Date Patient Seen: 12/22/18 Time Patient Seen: 08:11 Interval history: Patient 63-year-old male admitted about 36 hours ago following acute onset of left body numbness and weakness. Evaluation continued through the next 36 hours including the head CT of chest to exclude aneurysmal dilatation MRI of brain and cerebral vasculature and echocardiogram which showed no focus or potential source for clot formation. Patient feels still a little weak on his left side still feels the numbness at the same degree. MRI showed 8 x 8 mm area of apparent ischemic insult without bleeding or swelling in the right brain. Vasculature did not show any significant occlusion and carotids. He denies any pain still feels a little unsteady is bothered by the left-side numbness and tingling. No trouble with speech swallowing is normal. Physical therapy thinks he is going to need extended physical therapy but doing pretty well. Will work on that still today initiate statins monitor his blood pressure since he had a hypertensive response during the night make sure he tolerates blood pressure medications anticipate home tomorrow with outpatient physical therapy and occupational therapy and probable telemetry monitoring to exclude that this was arrhythmia focused. Exam Vital Signs (past 8 hours): - 12/22/18 05:32 Temperature 98.3 F Pulse Rate 66 Respiratory Rate 16 Blood Pressure 136/77 Pulse Oximetry 97 Oxygen Delivery Method Room Air Oxygen Flow Rate 0 Narrative Exam Narrative: Patient is sitting comfortably in bed and cognitively intact clear questions speech normal PERRLA EOMs intact Facial muscles all symmetrical Motor intact although slow late weakness on the left side in and fingers and in feet Speech clear Heart shows regular rate and rhythm good blood pressure no murmur Lungs clear Objective Labs Result Diagrams: 12/21/18 06:30 12/21/18 06:30 Assessment & Plan Assessment & Plan narrative: Assessment 1. Cerebrovascular accident with a 8 mm ischemic CVA is fairly stable at this point. No impact on swallowing speech still feels weak but being thing that bothers him is numbness in hands and feet and feeling a little bit less strong than his left leg than normal. Will work on physical therapy and occupational therapy today anticipate discharge in the morning. Patient had elevation of blood pressure through the night and has started blood pressure medications were also starting cholesterol medications I would like to observe today and see how things go anticipate discharge in a.m. Assessment 2. Hyperlipidemia patient has moderate hyperlipidemia and we have discussed a number of occasions the possibility of using medications to lower that patient had been hesitant and wanted to try diet and exercise. At this point low cholesterol in the 220s and LDL in the 140 range have initiated atorvastatin 20 mg. Assessment 3. Hypertension patient has had intermittent hypertension at low levels as outpatient and again wished to deal with those non pharmacologically. Stride sodium reduction and increased activity. Had elevated blood pressures fairly significantly in the middle of the night. That raises possible questions about sleep apneic issues will investigate as outpatient. Assessment 4. Left body deficit mild numbness and very mild weakness. Anticipa te that the physical therapy and occupational therapy as outpatient will probably return patient to or near his normal baseline. Assessment 5 some concern on initial imaging that he might have a aortic aneurysm CT scan directed at that shows there is no aneurysmal dilatation of thoracic aorta Quality VTE Deep Vein Thrombosis/Pulmonary Embolism Present on Admission: No
[2018-12-22] MEDS: METOPROLOL IR 25 MG TABLET PO ×2 (09:14→21:01)
[2018-12-22] MEDS: ASPIRIN EC 81 MG TABLET PO (09:14)
--- NOTE | 2018-12-22 09:56 | PC.NURSE ---
Addendum entered by Fabiana Cunha R.N. 12/22/18 14:50: PAIN - reports no change in symptoms, denies headache or other discomfort, able ambul, steady gait w/spouse at side. 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
--- NOTE | 2018-12-22 11:04 | OT.IP.TRT ---
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 OT Pain Assessment Pain When Pain Assessed At Rest Pain Present Pain Present Denied Pain M4 OT- IP ADL's Start: 12/21/18 16:45 Freq: Status: Active Protocol: Document 12/21/18 16:46 [facility] (Rec: 12/21/18 17:13 [facility] [id number]) OT ADL-Toileting General Evaluation Toileting Ability Independent M5 OT- IP IADL's Start: 12/21/18 16:45 Freq: Status: Active Protocol: Document 12/21/18 16:46 [facility] (Rec: 12/21/18 17:13 [facility] [id number]) OT-Instrumental Activities of Daily Living Medication Management Medication Management No Deficits Identified Money Management Money Management Caregiver Provides Assistance Driving Driving Comments Pt states drives. M6 OT- IP Functional Cognition Start: 12/21/18 16:45 Freq: Status: Active Protocol: Document 12/22/18 10:51 [facility] (Rec: 12/22/18 11:04 [facility] [id number]) Cognitive Factors Limiting Selfcare Function Cognitive Ability Level of Alertness Alert Patient Orientation Name Age Birthday Month Date Year Day of Week Place Situation Attention Span Ability Capable of Focused Attention Capable of Sustained Attention Ability to Follow Commands Able to Follow Multi-Step Commands Memory Description No Deficits Noted Safety Awareness No Deficits Noted Problem Solving Ability No deficits Noted Cognitive Tests ACL Pt able to score 6.0/6.0 normal cognition with no deficits. Cognitive Comments Cognitive Assessment Comments Increased time for problem solving. Pt aware that he will have to make a conscious effort to slow down, for example not run up and down the steps, to be very careful while cooking especially for cutting food and to look with his eyes as left hand finger tips still feel numb. M7 OT- IP Mobility and Balance Start: 12/21/18 16:45 Freq: Status: Active Protocol: Document 12/22/18 10:51 [facility] (Rec: 12/22/18 11:04 [facility] [id number]) OT-Transfer Assessment Comments Mobility Comments Pt able to get up and down to the floor and only needing to place hand on the recliner armrest to get up. Pt able to climb up to the window bench and up to the window with good balance and problem solving. M8 OT- IP Objective Assessments Start: 12/21/18 16:45 Freq: Status: Active Protocol: Document 12/22/18 10:51 [facility] (Rec: 12/22/18 11:04 [facility] [id number]) 9-Hole Peg Hand Test Hand Right Scoring Time 26 Interpretation Impaired Norm For Patients Age/Sex 23 Left Scoring Time 36 Interpretation Impaired Norm For Patients Age/Sex 25 OT Sensation Assessment Comments Summary Comments Improved coordination to picker and sorter load and unload pegs as able to stabilize left elbow to the side of his body. Still decreased smoothness, and for highly level coordination needs. M9 OT- IP Assessment and Plan Start: 12/21/18 16:45 Freq: Status: Active Protocol: Document 12/22/18 10:51 [facility] (Rec: 12/22/18 11:04 [facility] [id number]) OT Summary Assessment and Plan Potential Rehabilitation Potential Good Analytic Complexity at Evaluation Low Summary OT Impairments Coordination Progress Towards Goals Safe For Discharge Goals Met Assessment Summary Pt low complexity and appears to be at baseline for cognitive needs, still having some slight numbness and weakness to left side. Pt independent in the room with all needs and looking to go home tomorrow as still having medical needs to be done. Therefore discharge pt from OT services. Discharge Recommendations OT Discharge Recommendations Home with Assistance Other Discharge Recommendations If pt feels after being home still a little off with high level balance and coordination needs outpt PT and OT maybe needed. Home Equipment Needs possible shower chair
[2018-12-22] MEDS: ATORVASTATIN 20 MG TABLET PO (21:01)
[2018-12-22] MEDS: ACETAMINOPHEN 325 MG TABLET 650 MG PO (21:09)
--- NOTE | 2018-12-22 22:54 | PC.NURSE ---
Pt A/O x4, NIH score-1 due to remains with tingling to fingers/toes/left side mouth, and a slight drift down too left leg. Indep to BRP. 97%RA, LS clear, denies SOB. BT+ denies nausea. RAC SL. Telemetry inn place with NSR X 2. 2100- c/o headache, Tylenol, effective.
--- NOTE | 2018-12-23 01:22 | PC.NURSE ---
2300- Pt cont to be monitored regarding numbness in his L arm/leg; NIH score of 2. A+O, VSS; moving independently. Denies any needs at this time.
[2018-12-23 06:00] VITALS: BP 161/98; PULSE 66; RESP 16; TEMP 36.6; O2SAT 94
[2018-12-23 06:20] LABS: Add Manual Diff / Slide Review NO; Basophils Absolute Auto 100 /uL (0-100); Basophils Percent Auto 1.3 % (0-2); Eosinophils Absolute Auto 400 /uL (0-450); Hematocrit 44.4 % (41-53); Hemoglobin 14.9 g/dL (13.5-17.5); Lymphocytes Absolute Auto 1800 /uL (1100-4500); Lymphocytes Percent Auto 22.8 % (25-40); Mean Corpuscular HGB Conc 33.7 % (30-36); Mean Corpuscular Volume 103.9 fL (80-100); Monocytes Absolute Auto 700 /uL (0-900); Monocytes Percent Auto 8.6 % (3-14); Neutrophils Absolute Auto 4800 /uL (1500-7000); Neutrophils Percent Auto 62.3 % (50-75); Platelet Count 228 X10^3/uL (150-400); Red Blood Cell Count 4.27 X10^6/uL (4.5-5.9); White Blood Cell Count 7.7 X10^3/uL (4.5-11.0)
[2018-12-23 06:30] LABS: BUN Creatinine Ratio 13.8 (6-22); Blood Urea Nitrogen 11 mg/dL (9-20); Calcium 9.2 mg/dL (8.4-10.2); Carbon Dioxide 25 mmol/L (22-32); Chloride 105 mmol/L (98-107); Estimated Glomerular Filt Rate > 60.0 mL/min (>60); Glucose 103 mg/dL (80-110); HEMOLYSIS < 15 (0-50); Potassium 3.6 mmol/L (3.4-5.1); Sodium 138 mmol/L (137-145)
[2018-12-23 07:30] VITALS: O2SAT 95
--- NOTE | 2018-12-23 08:57 | PM.DS.1 ---
History of Present Illness Date Patient Seen: 12/23/18 Time Patient Seen: 08:03 Chief complaint: left side numbness x1 hour Narrative: Patient is a 63-year-old gentleman with acute left body numbness and weakness presented for evaluation found to have a small ischemic infarct right brain and left body with weakness on the left side and some slight tingling no progression no evolution no swelling evaluation for arrhythmia during his time here which has been the 4th day shows no arrhythmia echocardiogram shows no abnormality dilatation or regular movement and angiographic evaluation by MRI and MRA show no significant vascular lesions between heart and brain. Seems most likely to be microvascular ischemic in nature. Patient admit to and monitored blood pressure control stab wished initiated atorvastatin and has been stable has been evaluated by PT and OT and feels that he is good enough to go home. Will need outpatient PT and rehab and follow-up for cholesterol hypertension management Discharge Providers Date of admission: 12/20/18 13:28 Discharge Date: 12/23/18 Primary care physician: Hollis Gupta MD Consults: 12/20/18 14:00 Consult to Discharge Planning Routine Comment: Consult to Occupational Therapy Evaluate & Treat Comment: Physician Instructions: Evaluate and treat Consult to Physical Therapy Evaluate & Treat Comment: Physician Instructions: Evaluate and Treat Discharge provider: Hollis Gupta MD Summary Discharge Diagnosis: Assessment 1. CVA stable Assessment 2. Hypertension treatment initiated Assessment are 3 hyperlipidemia Assessment 4. Reflux Assessment 5. Insomnia Hospital Course: Patient is stable during admission had some slight improvement has had in terms of strength and numbness but stable over the last couple of days will need outpatient physical therapy I think. No choking swallowing problem speech changes or other neurologic problems vision or headache or any pain management. Status at Discharge Cognitive/behavioral status at discharge: oriented and at baseline, oriented Functional status at discharge: independent ambulation Overall status at discharge: patient is not back to baseline Time Spent with Patient Greater than 30 minutes Exam Vital Signs (past 8 hours): - 12/23/18 06:00 Temperature 97.8 F Pulse Rate 66 Respiratory Rate 16 Blood Pressure 161/98 H Pulse Oximetry 94 Oxygen Delivery Method Room Air Oxygen Flow Rate 0 Narrative Exam Narrative: Sitting comfortably in bed speaking clearly moving all extremities independently slight strength on left deficit on left side with some numbness but are but not complete absence of sensation on the left hand and foot PERRLA EOM is intact Lungs clear to auscultation and percussion CV is shows regular rate and rhythm without murmur S3 Abdomen nontender with no hepatosplenomegaly mass or tenderness Skin without any significant rashes Psych shows good processing and emotional state Motor shows slight weakness on left side speech clear cranial nerves intact patient able to ambulate with assistance Objective Labs Result Diagrams: 12/23/18 06:05 12/23/18 06:05 Labs: Laboratory Results - last 24 hr 12/23/18 12/23/18 06:05 06:05 WBC 7.7 RBC 4.27 L Hgb 14.9 Hct 44.4 MCV 103.9 H MCH 35.0 H MCHC 33.7 RDW 14.0 Plt Count 228 Neut % (Auto) 62.3 Lymph % (Auto) 22.8 L Richardson % (Auto) 8.6 Eos % (Auto) 5.0 H Baso % (Auto) 1.3 Neut # (Auto) 4800 Lymph # (Auto) 1800 Richardson # (Auto) 700 Eos # (Auto) 400 Baso # (Auto) 100 Sodium 138 Potassium 3.6 Chloride 105 Carbon Dioxide 25 BUN 11 Creatinine 0.80 Estimated GFR > 60.0 BUN/Creatinine Ratio 13.8 Glucose 103 Calcium 9.2 Discharge Plan Discharge Plan Patient Disposition: Home Discharge Med Rec/Prescriptions Prescriptions: New atorvastatin [Lipitor] 20 mg Tablet 20 mg PO BEDTIME Qty: 60 RF: 0 metoprolol tartrate 25 mg Tablet 25 mg PO BID Qty: 120 RF: 0 Continued omeprazole 20 MG capsule,delayed release(DR/EC) 20 mg PO DAILY PRN (Reason: Acid Reflux) Qty: 0 RF: 0 fexofenadine 60 MG tablet 60 mg PO PRN PRN (Reason: Allergy Symptoms) Qty: 0 RF: 0 valacyclovir 500 mg tablet 500 mg PO BID PRN (Reason: Outbreak) RF: 0 zolpidem 10 mg tablet 10 mg PO BEDTIME RF: 0 Follow up/Referrals: Hollis Gupta MD [Primary Care Provider] - Provider Discharge Instructions Diet: Diet as Tolerated Skin/Wound/Dressing Care Report to your healthcare provider any signs of infection, such as:: chills, fever and night sweats Visit Report/Discharge Packet Instructions: DI for Stroke-Ischemic, Metoprolol Discharge Data Primary Care Provider: Hollis Gupta Attending Provider: Alvin Pickard Admit Date/Time: 12/20/18 13:28 Quality VTE Deep Vein Thrombosis/Pulmonary Embolism Present on Admission: No
[2018-12-23 09:00] VITALS: BP 154/74; PULSE 68; RESP 16; TEMP 36.8; O2SAT 96
[2018-12-23] MEDS: METOPROLOL IR 25 MG TABLET PO (09:25)
[2018-12-23] MEDS: ASPIRIN EC 81 MG TABLET PO (09:25)
--- NOTE | 2018-12-23 10:44 | PC.NURSE ---
Discharge: Pt feels ready to d/c home. Seen by MD and he gave pt final d/c info. Reveiwed stroke information, sxs, treatment, call 911, ect. Reviewed his new meds metoprolol and atorvostatin. Rest of d/c information reviewed. Questions answered. Cont w/poc.
== END 2018-12-23 10:30 | disposition home or self-care (01) | DRG 65 ==
LOC: ED 13:25 → AC 13:29
PROVIDERS: Admitting Provider Family Medicine; Emergency Provider Emergency Medicine; Family Provider Family Medicine; PCP Family Medicine; Visit Provider Family Medicine
DX: I63.81 Other cerebral infarction due to occlusion or stenosis of small artery (principal); G81.94 Hemiplegia, unspecified affecting left nondominant side; R20.0 Anesthesia of skin; E78.5 Hyperlipidemia, unspecified; I10 Essential (primary) hypertension; K21.9 Gastro-esophageal reflux disease without esophagitis; G47.00 Insomnia, unspecified; Z87.891 Personal history of nicotine dependence
CPT/HCPCS: 36415; 36591; 70450; 70548; 70553; 71275; 80048; 80053; 80061; 82550; 82962; 84484; 85025; 85610; 85730; 93005; 93010; 93306; 94762; 97112; 97127; 97161; 97165; 97530; 99283; 99285; Q9967

== ENCOUNTER → 2020-02-15 15:04 | Outpatient (CLI) | payer OTHER, SELFPAY ==
[2018-12-20 14:12] VITALS: BMI 33.0
[2020-02-16 08:18] LABS: COVID19 Sendout Not Detected (Not Detect)
== END ==
PROVIDERS: Family Provider Family Medicine; PCP Family Medicine; Visit Provider Physician Assistant
DX: Z01.812 Encounter for preprocedural laboratory examination (principal)
CPT/HCPCS: 87635

== ENCOUNTER 2020-02-18 13:52 | Day surgery (SDC) | payer OTHER, SELFPAY ==
[2018-12-20 14:12] VITALS: BMI 33.0
--- NOTE | 2020-02-18 | PATH_ITS ---
[facility] Accession Number: [id number] . 01 Material submitted: . PART A: duodenum - DUODENUM PART B: gastrointestinal site - ANTRUM PART C: gastrointestinal site - FUNDUS OF STOMACH PART D: gastrointestinal site - BODY OF STOMACH PART E: esophagus, E-G Junction - GE JUNCTION AT 3 O'CLOCK . 01 Clinical history: . COLONOSCOPY EGD A-D: R/O H.PYLORI . 02 Diagnosis: A. Duodenum, Biopsy: Small bowel mucosa with no diagnostic abnormality. Negative for active inflammation, features of sprue, dysplasia, or malignancy. . B. Antrum, Biopsy: Gastric antral and body mucosa with mild chronic inflammation. Negative for Helicobacter organisms by immunohistochemistry. Negative for intestinal metaplasia. Negative for dysplasia or malignancy. . C. Stomach, Fundus, Biopsy: Body mucosa with no diagnostic abnormality. No evidence of Helicobacter organisms on H/E stain. Negative for intestinal metaplasia. Negative for dysplasia and malignancy. . D. Stomach, Body, Biopsy: Gastric body mucosa with mild chronic inflammation and features of reactive gastropathy. Negative for Helicobacter organisms by immunohistochemistry. Negative for intestinal metaplasia. Negative for dysplasia or malignancy. . E. Gastroesophageal Junction, 3 o'clock, Biopsy: Squamocolumnar junctional mucosa with chronic mild active inflammation, consistent with reflux esophagitis. Negative for specialized intestinal metaplasia on alcian blue stain. Negative for dysplasia or malignancy. [facility] 02/22/2020 1529 Local . 02 Electronically signed: . Gabino Bhandari MD, PhD, Pathologist NPI- [id number] . 01 Gross description: . Part A: DUODENUM: Received in formalin is 1 fragment(s) of harvey, soft tissue measuring 0.3 x 0.3 x 0.3 cm submitted entirely in 1 cassette(s) Part B: ANTRUM: Received in formalin are 2 fragment(s) of harvey, soft tissue measuring 0.3 x 0.1 x 0.1 cm to 0.1 x 0.1 x 0.1 cm submitted entirely in 1 cassette(s) Part C: FUNDUS OF STOMACH: Received in formalin is 1 fragment(s) of harvey, soft tissue measuring 0.2 x 0.1 x 0.1 cm submitted entirely in 1 cassette(s) Part D: BODY OF STOMACH: Received in formalin are 3 fragment(s) of harvey, soft tissue measuring 0.3 x 0.1 x 0.1 cm to 0.2 x 0.2 x 0.1 cm submitted entirely in 1 cassette(s) Part E: GE JUNCTION AT 3 O'CLOCK: Received in formalin are 2 fragment(s) of harvey, soft tissue measuring 0.1 x 0.1 x 0.1 cm to 0.1 x 0.1 x 0.1 cm submitted entirely in 1 cassette(s) /Q 02/19/2020 0446 Local . 02 Microscopic: . B. An immunohistochemical stain was performed to evaluate for Helicobacter organisms and is negative. The control stain showed appropriate reactivity. . D. An immunohistochemical stain was performed to evaluate for Helicobacter organisms and is negative. The control stain showed appropriate reactivity. . E. An AB/PAS stain is performed to evaluate for specialized intestinal metaplasia, and is negative for goblet cells. No fungal organisms are identified. A control stain shows appropriate reactivity. . * This test was developed and its performance characteristics determined by [facility]. It has not been cleared or approved by the U.S. Food and Drug Administration. The FDA has determined that such clearance or approval is not necessary. This test is used for clinical purposes. It should not be regarded as investigational or for research. . 02 Pathologist provided ICD-10: K29.70, K21.0 . 02 CPT . 334649, 607457, 515672, 400735, 120528, [id number], [id number] Performed at: 01 [facility] [address] [address], [place], [place] [id number] MD Shai López MD Phone: [phone] Performed at: [address] [facility] [id number] [place], [place] [id number] MD Mary Lopez MD Phone: [phone]
--- NOTE | 2020-02-18 12:11 | P.HP_ITS ---
History of Present Illness History of Present Illness Date Patient Seen: 02/18/20 Chief complaint: colonoscopy egd Narrative: 64 Years Old Male seen today for consideration of a diagnostic EGD and screening colonoscopy. Last EGD on 04/17/2011 revealed normal GE junction biopsies. Colonoscopy on same date showed <1 cm serrated adenoma at 30 cm, and some chronic and active inflammation at 60 cm. He is having some dysphagia as of late, choking on food boluses, sometimes needs to vomit to resolve the symptoms. No longer on PPIs x 18 months, denies reflux. Formally on omeprazole 20 mg p.o. daily. He does have a positive family history for colon cancer, paternal uncle. There have been no lower GI symptoms suggesting disease such as change in bowel habits, bleeding, abdominal pain or anemia. Overall health issues have been stable, including no major cardiac events for at least 6 weeks. Current Medications (verified): 1) Ketoconazole 2 % External Cream (Ketoconazole) .... Apply once daily to affected skin for 2 weeks 2) Omeprazole 20 Mg Oral Capsule Delayed Release (Omeprazole) .... Take one capsule once a day 30 minutes before first meal of the day, for stomach acid suppression. 3) Clopidogrel Bisulfate 75 Mg Oral Tablet (Clopidogrel Bisulfate) .... Take 1 tablet by mouth once a day, to prevent heart attack and stroke. 4) Atorvastatin Calcium 20 Mg Oral Tablet (Atorvastatin Calcium) .... Take 1 & 1/2 tablets by mouth daily for cholesterol control. 5) Metoprolol Tartrate 25 Mg Oral Tablet (Metoprolol Tartrate) .... Take 1 tablet by mouth twice a day for blood pressure control. 6) Metronidazole 0.75 % External Cream (Metronidazole) .... apply to facial rash twice daily, for rosacea 7) Zolpidem Tartrate 10 Mg Oral Tablet (Zolpidem Tartrate) .... Take one by mouth at bedtime as needed. 8) Valacyclovir Hcl 500 Mg Oral Tablet (Valacyclovir Hcl) .... Take one by mouth twice a day for recurrent herpes Allergies (verified): No Known Drug Allergies Past Medical History: Heart murmur, systolic CVA, 2019 Weakness, left side of body HYPERLIPIDEMIA DEPRESSION W/ ANXIETY PAIN, LOW BACK W/SCIATICA GERD ROSACEA HERPES SIMPLEX, ANY SITE Fungal dermatitis ALLERGIC RHINITIS, SEASONAL Past Surgical History: EGD/Colonoscopy, 2010 R lower leg fracture, s/p ORIF [place] teeth Family History: Father: Alcohol, Alzheimer's Dementia Mother: Breast Cancer Paternal Uncle: colon cancer Social History: Reviewed history from 09/06/2014 and no changes required: Marital Status: - Linsey (3) - Retired Occupation: [employer] Patient History Medical History Patient denies significant medical history (Acute) Family & Social History Social History: household members significant other Tobacco & Substance use: Smoking Status Former smoker alcohol intake frequency 0-2 drinks per day Substance Use Type does not use Meds Home Medications and Allergies Home Medications Medication Instructions Recorded Confirmed Type fexofenadine 60 mg PO PRN PRN #0 10/14/17 02/18/20 History omeprazole 20 mg PO DAILY PRN #0 10/14/17 02/18/20 History valacyclovir 500 mg PO BID PRN 12/21/18 02/18/20 History zolpidem 10 mg PO BEDTIME 12/21/18 02/18/20 History atorvastatin [Lipitor] 20 mg PO BEDTIME #60 tab 12/23/18 02/18/20 Rx metoprolol tartrate 25 mg PO BID #120 tab 12/23/18 02/18/20 Rx clopidogrel 75 mg PO DAILY 02/18/20 02/18/20 History Allergies Allergy/AdvReac Type Severity Reaction Status Date / Time No Known Drug Allergies Allergy Verified 02/18/20 14:15 Review of Systems Review of Systems ROS: Yes All systems reviewed with the patient and are negative except as otherwise documented Exam Narrative Exam Narrative: General: Alert and oriented, appearing stated age and in no acute distress. Head: Head normocephalic/atraumatic. Eyes: Pupils equal, round, and reactive to light and accommodation. Extraocular muscles intact. Ears: Tympanic membranes clear. Nose: Nasal mucosa moist, septum midline. Mouth: Oral mucosa moist, no lesions. Neck: Neck soft and supple, no lymphadenopathy. Lungs: Clear to auscultation bilaterally, no wheezes, rhonchi or rales. Heart: Normal S1 and S2 with regular rate and rhythm, no audible murmurs, rubs or gallops. Abdomen: Soft, non-tender, non-distended, no organomegaly. Possitive bowel sounds. Psych: Alert and oriented x 3. Assessment & Plan Assessment & Plan narrative: Problem # 1: DYSPHAGIA Problem # 2: GERD Problem # 3: History of colon polyps Problem # 4: Family history of cancer of colon Problem # 5: Screening for colon cancer Problem # 6: CVA, ACUTE, patient had a CVA within the last year. On Plavix and aspirin. Plan: Diagnostic EGD and screening colonoscopy 1. Patient has received preop clearance from PCP and has held his plavix for the last 5 days. 2. MD anesthesia has been consulted for this ASA class III patient. 3. The nature and character of the procedures as well as anticipated results were discussed. The possibility of not completing the procedures was also discussed. Possible complications including aspiration pneumonia, bleeding, pe rforation and reaction to medications either for sedation or preparation and missed lesions were discussed. Questions were answered and proceeding to the EGD/colonoscopy was elected. Informed consent signed.
--- NOTE | 2020-02-18 12:18 | PM.OP.ENDO ---
Operative Date/Time/Diagnoses Date of procedure: 02/18/20 Pre-op diagnosis: 1. Dysphagia 2. GERD Post-op diagnosis: other (1. Gastritis, 2. Irregular Z-line) Procedure & Clinicians Study performed: EGD Same procedure as scheduled: Yes Indications: 1: DYSPHAGIA 2: GERD 6: CVA, ACUTE, patient had a CVA within the last year. On Plavix and aspirin, off plavix for the last 5 days and ASA for last 7 days. Surgeon: Nancy Faith Procedure Notes SCOAP/Timeout: 15:28 Procedure in detail: ENDOSCOPIST: Nancy Faith MD Anesthesiologist: Dr. Adler PROCEDURE: EGD with biopsy REFERRING PROVIDER: Dr. Gupta INDICATIONS: 1. Dysphagia 2. GERD MEDICATION: Incremental doses of Versed and fentanyl until an appropriate level of sedation was achieved. ASA Ratin DURATION OF PROCEDURE: 8 minutes. COMPLICATIONS: None. LIMITATIONS: None EXTENT OF PROCEDURE: Third portion of the Duodenum. PROCEDURE: The high-definition gastroduodenoscope was introduced into the posterior oropharynx under direct vision after Hurricaine spray, noted IV sedation, and proper informed consent. The esophagus was identified and intubated under direct visualization. The scope was quickly passed through the esophagus and into the fundus of the stomach. A clear fundal pool was aspirated. The scope was then advanced to the antrum and the pylorus was identified. The scope was passed through the pylorus into the second and third portions of the duodenum. No abnormalities were noted in the duodenum, duodenal bulb or pyloric channel. Random biopsy taken x2. The antrum had some superficial hyperemesis, targeted biopsy taken x2. J maneuver was produced. No abnormalities were noted of the proximal body, fundus or cardia. Random biopsy taken x4. No hiatal hernia was noted. Scope was broken out of the J maneuver and the remainder of the stomach was carefully inspected upon withdrawal and was normal. The stomach was carefully deflated of all air on withdrawal. The distal esophagus was carefully inspected and Z-line was noted to be irregular. Biopsy taken at 3 o'clock. The remainder of the esophagus was normal upon withdrawal. The larynx and vocal cords appeared to be unremarkable. IMPRESSION: 1. Gastritis 2. Irregular Z-line PLAN: 1. Follow-up in clinic status post pathology results. The possibility of missed lesion including a malignancy was discussed prior with the patient. Potential alarm symptoms have been discussed and should be reported by the patient immediately. Complications: none Post-procedure Recommendations: Will call with biopsy results Follow up: weeks (2) Disposition: PACU
--- NOTE | 2020-02-18 12:20 | PM.OP.ENDO ---
Operative Date/Time/Diagnoses Date of procedure: 02/18/20 Pre-op diagnosis: 1. History of colon polyps 2. Family history of colon cancer 3. Screening for colon cancer 4. CVA within the last year, on Plavix/aspirin. Off Plavix x5 days, aspirin x7 days Post-op diagnosis: other (1. Normal colonoscopy) Procedure & Clinicians Study performed: Colonoscopy Same procedure as scheduled: Yes Indications: 1. History of colon polyps 2. Family history of colon cancer 3. Screening for colon cancer 4. CVA within the last year, on Plavix/aspirin. Off Plavix x5 days, aspirin x7 days Surgeon: Nancy Faith Procedure Notes SCOAP/Timeout: 15:28 Procedure in detail: ENDOSCOPIST: Nancy Faith MD Anesthesiologist: Dr. Adler PROCEDURE: Colonoscopy INDICATIONS: 1. History of colon polyps 2. Family history of colon cancer 3. Screening for colon cancer 4. History of CVA within the last year, anticoagulated, off plavix x 5 days, off aspirin x 7 days MEDICATION: Levsin 0.125 mg sublingual, incremental doses of Versed and fentanyl until appropriate level sedation achieved. ASA CLASS: 3 CECAL WITHDRAWAL TIME: 11 minutes COMPLICATIONS: None. EXTENT OF PROCEDURE: Cecum. QUALITY OF PREP: Good with portions of liquid stool. PROCEDURE: Prior to insertion of the colonoscope, a digital rectal examination was accomplished with circumferential palpation of the distal rectal mucosa without significant findings being noted. The high-definition colonoscope was passed into the rectum in the usual fashion and advanced over to the cecum without difficulty. The ileocecal valve, appendiceal stoma, and medial wall all could be inspected and no abnormalities were seen. ASCENDING COLON: As the colonoscope was withdrawn, care was taken to expose and inspect the haustral folds and no abnormalities were seen. HEPATIC FLEXURE: Normal no polyps, diverticula or other abnormalities. TRANSVERSE COLON: Normal no polyps, diverticula or other abnormalities. DESCENDING COLON: Normal no polyps, diverticula or other abnormalities. SIGMOID COLON: Minor diverticulosis, otherwise, normal, no polyps or other abnormalities. RECTUM: Normal. J maneuver was produced. There was no significant perianal disease. The J maneuver was broken. The remainder of the rectum was inspected and there was no external hemorrhoid disease. The scope was withdrawn. IMPRESSION: 1. Normal colonoscopy 2. Sigmoid diverticulosis PLAN: 1. Repeat colonoscopy in 5 years secondary to family history of colon cancer and personal history of polyps. The possibility of a missed lesion including a malignancy has been discussed with the patient previously. Potential alarm symptoms have been discussed and should be reported immediately. Complications: none Post-procedure Recommendations: Colonscopy in 5 years Follow up: as needed Disposition: PACU
[2020-02-18 14:24] VITALS: BP 161/85; PULSE 92; RESP 20; TEMP 36.7; O2SAT 96; BMI 31.2
[2020-02-18] MEDS: LACTATED RINGERS 1,000 ML 200 ML IV (14:38)
[2020-02-18] MEDS: HYOSCYAMINE 0.125 MG TABLET PO (14:38)
[2020-02-18] MEDS: LIDOCAINE JELLY 2% 5 ML 1 APPLIC TOP (15:32)
[2020-02-18 16:09] VITALS: BP 118/75; PULSE 87; RESP 19; TEMP 36.4; O2SAT 92
[2020-02-18 16:14] VITALS: BP 125/77; PULSE 82; RESP 21; TEMP 36.5; O2SAT 92
[2020-02-18 16:19] VITALS: BP 132/76; PULSE 79; RESP 21; TEMP 36.3; O2SAT 93
[2020-02-18 16:25] VITALS: BP 131/82; PULSE 75; RESP 20; TEMP 36.5; O2SAT 92
[2020-02-18 16:39] VITALS: BP 134/78; PULSE 74; RESP 24; TEMP 36.4; O2SAT 93
== END 2020-02-18 16:58 | disposition home or self-care (01) ==
PROVIDERS: Family Provider Family Medicine; PCP Family Medicine; Referring Provider Student in an Organized Health Care Education/Training Program; Visit Provider Student in an Organized Health Care Education/Training Program
PROC: 0DJ08ZZ Inspection of Upper Intestinal Tract, Via Natural or Artificial Opening Endoscopic (ICD-10-PCS; CPT 43235; principal; 2020-02-18 15:15)
PROC: 0DJD8ZZ Inspection of Lower Intestinal Tract, Via Natural or Artificial Opening Endoscopic (ICD-10-PCS; CPT 45378; 2020-02-18 15:15)
DX: Z12.11 Encounter for screening for malignant neoplasm of colon (principal); K21.0 Gastro-esophageal reflux disease with esophagitis; Z86.73 Personal history of transient ischemic attack (TIA), and cerebral infarction without residual deficits; Z79.01 Long term (current) use of anticoagulants; Z86.010 Personal history of colon polyps; Z80.0 Family history of malignant neoplasm of digestive organs; K57.30 Diverticulosis of large intestine without perforation or abscess without bleeding; K29.50 Unspecified chronic gastritis without bleeding
CPT/HCPCS: 43239; 45378; J2250; J2704; J3010

== ENCOUNTER 2020-09-05 23:29 | Observation (INO) | payer OTHER, SELFPAY ==
[2018-12-20 14:12] VITALS: BMI 33.0
[2020-09-05 23:34] VITALS: BP 157/72; PULSE 76; RESP 18; O2SAT 96
[2020-09-05 23:39] VITALS: TEMP 36.3
[2020-09-05 23:42] LABS: Add Manual Diff / Slide Review NO; Basophils Absolute Auto 100 /uL (0-100); Basophils Percent Auto 0.8 % (0-2); Eosinophils Absolute Auto 300 /uL (0-450); Eosinophils Percent Auto 2.8 % (2-4); Hematocrit 44.4 % (41-53); Hemoglobin 14.7 g/dL (13.5-17.5); Lymphocytes Absolute Auto 2500 /uL (1100-4500); Lymphocytes Percent Auto 24.6 % (25-40); Mean Corpuscular HGB Conc 33.2 % (30-36); Mean Corpuscular Hemoglobin 34.8 PG (26-34); Monocytes Absolute Auto 600 /uL (0-900); Monocytes Percent Auto 5.5 % (3-14); Neutrophils Absolute Auto 6900 /uL (1500-7000); Neutrophils Percent Auto 66.3 % (50-75); Platelet Count 294 X10^3/uL (150-400); Red Blood Cell Count 4.23 X10^6/uL (4.5-5.9); Red Cell Distribution Width 13.8 % (11.6-14.8); White Blood Cell Count 10.3 X10^3/uL (4.5-11.0)
--- NOTE | 2020-09-05 23:50 | PC.NURSE ---
Sitting at dinner table called out feeling ill, held his head up,vomited twice,lasted less than 2 minutes his said.
[2020-09-05 23:51] LABS: Alanine Aminotransferase 28 IU/L (<50); Albumin 4.4 g/dL (3.5-5.0); Albumin Globulin Ratio 1.4 (1.0-2.8); Alkaline Phosphatase 55 U/L (38-126); Aspartate Aminotransferase 36 IU/L (17-59); BUN Creatinine Ratio 9.2 (6-22); Bilirubin Total 0.4 mg/dL (0.2-1.3); Blood Urea Nitrogen 11 mg/dL (9-20); Calcium 9.7 mg/dL (8.4-10.2); Carbon Dioxide 22 mmol/L (22-32); Chloride 108 mmol/L (98-107); Creatine Kinase 49 U/L (55-170); Estimated Glomerular Filt Rate > 60.0 mL/min (>60); Globulin 3.1 g/dL (1.7-4.1); Glucose 124 mg/dL (80-110); Lipase 109 U/L (23-300); Potassium 4.1 mmol/L (3.4-5.1); Sodium 141 mmol/L (137-145); Total Protein 7.5 g/dL (6.3-8.2)
[2020-09-05 23:53] LABS: HEMOLYSIS 52 (0-50)
[2020-09-05 23:57] LABS: PTT Partial Thromboplastin Tim 30 SECONDS (26.4-36.2)
[2020-09-06] VITALS (12 sets, daily range): BP systolic 113–167; BP diastolic 65–95; PULSE 72–87; RESP 16–20; TEMP 36.8–37.1; O2SAT 92–98; BMI 31.2
[2020-09-06 00:03] LABS: Troponin I < 0.012 ng/mL (0.01-0.034)
--- NOTE | 2020-09-06 00:34 | DI.CT.S_ITS ---
PROCEDURE: CT HEAD/BRAIN WO CON INDICATIONS: Syncope TECHNIQUE: Noncontrast 4.5 mm thick angled axial sections acquired from the foramen magnum to the vertex, with coronal and sagittal reformats. For radiation dose reduction, the following was used: automated exposure control, adjustment of mA and/or kV according to patient size. COMPARISON: [facility], MR, MR STROKE, 12/21/2018, 7:18. [facility], CT, CT HEAD/BRAIN WO CON, 12/20/2018, 12:53. FINDINGS: Image quality: Excellent. CSF spaces: Basal cisterns are patent. No extra-axial fluid collections. The ventricles are symmetric in size and shape. Brain: No intracranial bleeds or masses. There is cerebral volume loss for age, with resultant ventricular and sulcal prominence. There are periventricular and deep white matter chronic small vessel ischemic changes. There is intracranial internal carotid artery atherosclerosis. Skull and face: Calvarium and visualized facial bones appear intact, without suspicious lesions. Sinuses: Visualized sinuses and mastoids are clear. IMPRESSION: No acute intracranial disease process. Dictated by: Charlette Recio MD, PhD on 09/06/2020 at 7:22 Approved by: Charlette Recio MD, PhD on 09/06/2020 at 7:23
--- NOTE | 2020-09-06 00:34 | ED.SYNCOPE ---
HPI - Syncope General Chief Complaint: Syncope Stated Complaint: Syncope Time Seen by Provider: 09/05/20 23:30 Source: patient, family and EMS Mode of arrival: EMS Limitations: no limitations History of Present Illness HPI narrative: Patient here with family brought in by ambulance. Had 2 episodes of syncope witnessed by family at dinner table. Episode duration less than 2 minutes. No seizure activity. Had vomiting. No bowel or bladder incontinence. Denies denies any pain. No headache no chest pain no back pain abdominal pain. History of stroke with left side deficit. Denies any recent illness cough cold congestion fever chills. No black stools or bloody stools. Patient was hypotensive by EMS arrival. IV fluids given. complaint: loss of consciousness Related Data Home Medications Medication Instructions Recorded Confirmed fexofenadine 60 mg PO PRN PRN #0 10/14/17 09/06/20 valacyclovir 500 mg PO BID PRN 12/21/18 09/06/20 clopidogrel 75 mg PO DAILY 02/18/20 09/06/20 Previous Rx's Medication Instructions Recorded atorvastatin [Lipitor] 20 mg PO BEDTIME #60 tab 12/23/18 metoprolol tartrate 25 mg PO BID #120 tab 12/23/18 Allergies Allergy/AdvReac Type Severity Reaction Status Date / Time No Known Drug Allergies Allergy Verified 02/18/20 14:15 Review of Systems Review of Systems Narrative: GENERAL: Denies chills, fatigue, malaise, fever, sweats. HEENT: Denies sinus pain, ear pain, sore throat, difficulty swallowing RESPIRATORY: Denies dyspnea, cough CARDIOVASCULAR: Denies chest pain, palpitations, edema, GASTROINTESTINAL: Denies nausea, vomiting, abdominal pain, diarrhea, constipation, melena. : Denies dysuria, frequency, hematuria MUSCULOSKELETAL: denies muscle or bony pain SKIN: Denies rash, skin lesions NEUROLOGIC: Denies weakness, headache, numbness, change in speech, confusion ROS Unobtainable: All systems reviewed & are unremarkable except as noted in HPI and below Patient History Medical History (Updated 09/06/20 @ 02:01 by Melchor Marshall MD) Patient denies significant medical history Social History household members: spouse Smoking Status: Former smoker alcohol intake: current Smoking Status: Former smoker alcohol intake frequency: 0-2 drinks per day Substance Use Type: does not use Exam Narrative Exam Narrative: GENERAL: patient appears stated age. Well-nourished, well-developed patient, in no distress, not toxic not dyspneic HEAD: Normocephalic. EYES: Pupils equal round and reactive. No scleral icterus. No injection no discharge ENT: Mucous membranes moist. No drooling no tongue elevation no trismus no malocclusion NECK: Trachea midline. Non tender CARDIOVASCULAR: Regular rate and rhythm, systolic murmur audible, gallops, or rubs. RESPIRATORY: Clear to auscultation. Breath sounds equal bilaterally. No wheezes, rales, or rhonchi. GASTROINTESTINAL: Abdomen soft, non-tender, nondistended. EXTREMITIES: No gross deformities. BACK: Nontender without deformity or crepitance. No flank tenderness. NEURO: AOx4. Clear speech no facial droop SKIN: Warm and dry PSYCH: Not anxious, is cooperative Initial Vital Signs Initial Vital Signs: Vital Signs Pulse Rate 76 09/05/20 23:34 Respiratory Rate 18 09/05/20 23:34 Blood Pressure 157/72 H 09/05/20 23:34 Pulse Oximetry 96 09/05/20 23:34 Course Course Course Narrative: No new issues during course of stay Decision to Admit Date: 09/06/20 Decision to Admit time: 02:00 Orders Ordered: ED Orders 09/05/20 23:06 Complete Blood Count AUTO DIFF Stat Comprehensive Metabolic Panel Stat Lipase Stat Partial Thromboplastin Time Stat Prothrombin Time INR Stat Troponin & CK Cardiac Panel Stat 09/05/20 23:30 Urinalysis and Microscopic Stat 09/05/20 23:31 EKG-12 Lead Stat 09/06/20 00:34 CT head/brain wo con Stat 09/06/20 00:35 COVID19 Stat Atorvastatin Calcium (Atorvastatin 20 Mg Tablet) 20 mg PO BEDTIME NALDO Bisacodyl (Bisacodyl 10 Mg Supp) 10 mg SC DAILY PRN PRN Reason: Constipation Clopidogrel Bisulfate (Clopidogrel 75 Mg Tablet) 75 mg PO DAILY [facility] Enoxaparin Sodium (Enoxaparin 40 Mg/0.4 Ml Syringe) 40 mg SUBCUT DAILY [facility] Sodium Chloride (Normal Saline 0.9%) 1,000 mls @ 100 mls/hr IV CONT NALDO Last Admin: 09/06/20 02:43 Dose: 100 mls/hr Documented by: VALENTÍN Morphine Sulfate (Morphine 2 Mg/Ml Inj) 2 mg IV Q4HR PRN PRN Reason: Pain, Moderate (4-6) Naloxone HCl (Naloxone 0.4 Mg/Ml Vial) 0.2 mg IV Q2MIN PRN PRN Reason: Opiate Reversal Ondansetron HCl (Ondansetron 4 Mg/2 Ml Inj) 4 mg IV Q8HR PRN PRN Reason: Nausea And Vomiting Sennosides (Sennosides 8.6 Mg Tablet) 17.2 mg PO BEDTIME PRN PRN Reason: Constipation Reevaluation(s) Reevaluation #1: Reviewed results with patient and . They agree for admission. Time: 00:37 Consultations Consultation #1: Spoke with hospitalistFrantz will admit Time: 02:00 Vital Signs Vital signs: Vital Signs - 8 hr 09/05/20 23:34 09/05/20 23:39 09/06/20 00:00 Temperature 97.4 F L Pulse Rate 76 73 Respiratory Rate 18 16 Blood Pressure 157/72 H 113/65 Pulse Oximetry 96 93 09/06/20 00:30 09/06/20 01:00 09/06/20 01:35 Temperature Pulse Rate 77 78 76 Respiratory Rate 16 16 Blood Pressure 126/73 130/66 Pulse Oximetry 93 92 92 09/06/20 02:00 Temperature Pulse Rate 76 Respiratory Rate Blood Pressure 135/72 Pulse Oximetry 93 MDM - Syncope Differential Diagnosis Differential diagnosis: Likely syncope due to orthostatic hypotension, vasovagal syncope, complete atrioventricular block and dehydration Medical Records Attestation: I reviewed the patient's medical records. Lab Data Attestation: I reviewed the patient's lab results. Result diagrams: 09/05/20 23:06 09/05/20 23:06 Labs: Lab Results 09/05/20 09/05/20 09/05/20 Range/Units 23:06 23:06 23:06 WBC 10.3 (4.5-11.0) X10^3/uL RBC 4.23 L (4.5-5.9) X10^6/uL Hgb 14.7 (13.5-17.5) g/dL Hct 44.4 (41-53) % MCV 105.0 H (80-100) fL MCH 34.8 H (26-34) PG MCHC 33.2 (30-36) % RDW 13.8 (11.6-14.8) % Plt Count 294 (150-400) X10^3/uL Neut % (Auto) 66.3 (50-75) % Lymph % (Auto) 24.6 L (25-40) % [place] % (Auto) 5.5 (3-14) % Eos % (Auto) 2.8 (2-4) % Baso % (Auto) 0.8 (0-2) % Neut # (Auto) 6900 (8167-2787) /uL Lymph # (Auto) 2500 (0738-3599) /uL [place] # (Auto) 600 (0-900) /uL Eos # (Auto) 300 (0-450) /uL Baso # (Auto) 100 (0-100) /uL PT 11.0 (10.1-12.7) SECONDS INR 1.0 (0.9-1.3) APTT 30 (26.4-36.2) SECONDS Sodium 141 (137-145) mmol/L Potassium 4.1 (3.4-5.1) mmol/L Chloride 108 H (98-107) mmol/L Carbon Dioxide 22 (22-32) mmol/L BUN 11 (9-20) mg/dL Creatinine 1.19 (0.66-1.25) mg/dL Estimated GFR > 60.0 (>60) mL/min BUN/Creatinine Ratio 9.2 (6-22) Glucose 124 H (80-110) mg/dL Calcium 9.7 (8.4-10.2) mg/dL Total Bilirubin 0.4 (0.2-1.3) mg/dL AST 36 (17-59) IU/L ALT 28 (<50) IU/L Alkaline Phosphatase 55 (38-126) U/L Total Creatine Kinase 49 L (55-170) U/L CK-MB (CK-2) TNP CK-MB (CK-2) Rel Index TNP Troponin I < 0.012 (0.01-0.034) ng/mL Total Protein 7.5 (6.3-8.2) g/dL Albumin 4.4 (3.5-5.0) g/dL Globulin 3.1 (1.7-4.1) g/dL Albumin/Globulin Ratio 1.4 (1.0-2.8) Lipase 109 (23-300) U/L SARS-CoV-2 (PCR) (Negative) 09/06/20 Range/Units 00:35 WBC (4.5-11.0) X10^3/uL RBC (4.5-5.9) X10^6/uL Hgb (13.5-17.5) g/dL Hct (41-53) % MCV (80-100) fL MCH (26-34) PG MCHC (30-36) % RDW (11.6-14.8) % Plt Count (150-400) X10^3/uL Neut % (Auto) (50-75) % Lymph % (Auto) (25-40) % [place] % (Auto) (3-14) % Eos % (Auto) (2-4) % Baso % (Auto) (0-2) % Neut # (Auto) (9063-9997) /uL Lymph # (Auto) (0230-4200) /uL [place] # (Auto) (0-900) /uL Eos # (Auto) (0-450) /uL Baso # (Auto) (0-100) /uL PT (10.1-12.7) SECONDS INR (0.9-1.3) APTT (26.4-36.2) SECONDS Sodium (137-145) mmol/L Potassium (3.4-5.1) mmol/L Chloride (98-107) mmol/L Carbon Dioxide (22-32) mmol/L BUN (9-20) mg/dL Creatinine (0.66-1.25) mg/dL Estimated GFR (>60) mL/min BUN/Creatinine Ratio (6-22) Glucose (80-110) mg/dL Calcium (8.4-10.2) mg/dL Total Bilirubin (0.2-1.3) mg/dL AST (17-59) IU/L ALT (<50) IU/L Alkaline Phosphatase (38-126) U/L Total Creatine Kinase (55-170) U/L CK-MB (CK-2) CK-MB (CK-2) Rel Index Troponin I (0.01-0.034) ng/mL Total Protein (6.3-8.2) g/dL Albumin (3.5-5.0) g/dL Globulin (1.7-4.1) g/dL Albumin/Globulin Ratio (1.0-2.8) Lipase (23-300) U/L SARS-CoV-2 (PCR) Negative (Negative) Imaging Data CT scan - head: Radiologist's Impression: No acute findings ECG Data Attestation: I personally reviewed and interpreted this ECG as follows: Interpretation: Normal sinus rhythm rate 76 incomplete right bundle-branch block. No ST elevation or depression MDM Narrative Medical decision making narrative: Monitor for arrhythmias/would benefit echocardiogram for systolic murmur Discharge Plan Departure Patient Disposition: Admitted as Observation Clinical Impression: Syncope and collapse Admit Date/Time: 09/06/20 02:00 Admit Provider: Donald Campos
[2020-09-06 00:59] LABS: COVID19 -Nasal RAPID Negative (Negative)
--- NOTE | 2020-09-06 02:15 | PC.NURSE ---
The medics gave 500 ml normal saline bolus and I finished the last 500 ml now.
[2020-09-06] MEDS: SODIUM CHLORIDE 0.9% 1,000 ML 100 ML IV (02:43)
--- NOTE | 2020-09-06 04:10 | P.HP_ITS ---
History of Present Illness History of Present Illness Date Patient Seen: 09/06/20 Time Patient Seen: 03:41 Chief complaint: Syncope Narrative: Mr. Kye Martinez is a 65-year-old male with a past medical history significant for CVA with mild left-sided deficits (2019), dysphagia, hiatal hernia, GERD, depression and anxiety who presents to the ER following 2 syncopal episodes at the dinner table tonight with missed by family. Patient was eating dinner with the family when he states he be can to suddenly feel lightheaded and his vision grayed out, he became diaphoretic and reportedly loss consciousness. He sustained no fall or trauma, no seizure activity was noted. The patient regained consciousness and had 2nd episode of similar presentation. Upon regaining consciousness the patient had nausea vomiting. He denies antecedent symptoms of headaches, dizziness, visual changes, chest pain or palpitations. The patient has had dysphagia and food bolus obstruction and will half to get up and walk around or vomit to clear the obstruction. The patient states that this episode was very different. EMS was summoned and upon arrival the patient is found to be hypotensive. Upon arrival to the ER the the patient's blood pressure normalized with fluid resuscitation. The patient denies recent flu or cold symptoms, fevers or chills and has had no known COVID- 19 exposures. Reports no headaches or dizziness, nasal congestion or sore throat. He denies neck pain or back pain. Has persistent left lip paresthesia residual from his prior CVA. He denies chest pain or palpitations, shortness of breath cough or wheezing. He denies epigastric or abdominal pain however had multiple episodes of emesis at his home and then again with EMS EN route to the hospital. He denies changes in bowel or bladder. He has paresthesias to the palm sides of his left toes and left finger tips also residual from his CVA. Upon arrival to the ER the patient is afebrile with temperature 97.4?, heart rate of 73, blood pressure 154 over 72, respirations 18 saturating 96% on room air. Stat CT of the head is obtained which finds no acute intracranial proces ses. Twelve lead EKG finds sinus rhythm with incomplete right bundle branch block, no ectopy, ST or T-wave changes or Q-waves noted. On laboratory analysis he has white count of 10.3, hemoglobin of 14.7, hematocrit of 44.4 and platelets 294. No shift. He has a PT of 11.0, INR 1.0 and a PTT of 30. His electrolytes are all within normal limits and has a BUN of 11 and creatinine 1.19. His nonfasting glucose is 124. His liver functions are all within normal limits. He has a total CK of 49 and a troponin that is less than 0.012. No interventions were undertaken in the ER the patient is admitted to the hospitalist service for syncope. Patient History Medical History (Updated 09/06/20 @ 05:06 by DUKE Gee) Chronic low back pain Colon polyps CVA (cerebral vascular accident) Depression with anxiety Dysphagia GERD (gastroesophageal reflux disease) Hiatal hernia Hyperlipidemia Surgical History (Updated 09/06/20 @ 05:06 by DUKE Gee) History of colonoscopy History of esophagogastroduodenoscopy (EGD) History of surgery on extremity Family & Social History Family History (Updated 09/06/20 @ 05:07 by DUKE Gee) Father Alcoholism Alzheimer's dementia Mother Cancer Social History: household members spouse Prior Living Arrangements House Safety & Behavioral: Feels Safe in Current Yes Environment Been Physically Hurt or No Threatened By a Person Suicidal Ideation Description None Suicide Plan Description No Plan Tobacco & Substance use: Smoking Status Former smoker alcohol intake current alcohol intake frequency 0-2 drinks per day Substance Use Type does not use Meds Home Medications and Allergies Home Medications Medication Instructions Recorded Confirmed Type fexofenadine 60 mg PO PRN PRN #0 10/14/17 09/06/20 History valacyclovir 500 mg PO BID PRN 12/21/18 09/06/20 History atorvastatin [Lipitor] 20 mg PO BEDTIME #60 tab 12/23/18 09/06/20 Rx metoprolol tartrate 25 mg PO BID #120 tab 12/23/18 09/06/20 Rx clopidogrel 75 mg PO DAILY 02/18/20 09/06/20 History Allergies Allergy/AdvReac Type Severity Reaction Status Date / Time No Known Drug Allergies Allergy Verified 02/18/20 14:15 Review of Systems Review of Systems ROS: Yes All systems reviewed with the patient and are negative except as otherwise documented Exam Vital Signs (past 8 hours): - 09/05/20 23:34 09/05/20 23:39 09/06/20 00:00 Temperature 97.4 F L Pulse Rate 76 73 Pulse Rate [Orthostatic Lying] Pulse Rate [Orthostatic Sitting] Pulse Rate [Orthostatic Standing] Respiratory Rate 18 16 Blood Pressure 157/72 H 113/65 Blood Pressure [Orthostatic Lying] Blood Pressure [Orthostatic Sitting] Blood Pressure [Orthostatic Standing] Pulse Oximetry 96 93 09/06/20 00:30 09/06/20 01:00 09/06/20 01:35 Temperature Pulse Rate 77 78 76 Pulse Rate [Orthostatic Lying] Pulse Rate [Orthostatic Sitting] Pulse Rate [Orthostatic Standing] Respiratory Rate 16 16 Blood Pressure 126/73 130/66 Blood Pressure [Orthostatic Lying] Blood Pressure [Orthostatic Sitting] Blood Pressure [Orthostatic Standing] Pulse Oximetry 93 92 92 09/06/20 02:00 09/06/20 03:05 09/06/20 03:07 Temperature 98.3 F Pulse Rate 76 Pulse Rate [Orthostatic Lying] 78 Pulse Rate [Orthostatic Sitting] 79 Pulse Rate [Orthostatic Standing] 87 Respiratory Rate 20 Blood Pressure 135/72 Blood Pressure [Orthostatic Lying] 147/75 H Blood Pressure [Orthostatic Sitting] 146/90 H Blood Pressure [Orthostatic Standing] 142/79 H Pulse Oximetry 93 Oxygen Delivery Method Room Air Narrative Exam Narrative: GENERAL APPEARANCE: well developed, obese male lying semi recumbent in bed in no acute distress. HEENT: Normocephalic, PERRLA, conjunctiva clear, EOMs intact without nystagmus, mucous membranes are moist and pink without lesions or exudate. NECK/THYROID: neck supple, no JVD, no carotid bruit, no thyromegaly, trachea midline. LYMPH NODES: no cervical or supraclavicular lymphadenopathy. SKIN: [place], warm and dry, no visible lesions, rashes, ulcerations or petechiae. HEART: regular rate and rhythm, S1-S2, 1/6 systolic murmur, no rubs or gallops, brisk capillary refill, no edema LUNGS: clear to auscultation bilaterally, no coarseness crackles or wheezing, no cough present. CHEST: Symmetrical movement, no accessory muscle use, good tidal volume, no pain on AP lateral compression. ABDOMEN: Soft, protuberant, dull to percussion, no epigastric or abdominal tenderness, no organomegaly, no flank or suprapubic tenderness, active bowel tones. BACK: Nontender, no back pain with straight leg raise EXTREMITIES: moves all extremities, strength is 5/5 and symmetrical, no deformities or joint effusions. NEUROLOGIC: AAO x4, cranial nerves II-XII grossly intact, altered sensation to left lips, finger tips and plantar surface of left toes. PSYCH: Briskly responsive, linear thought, cooperative, stable behavior Objective Labs Result Diagrams: 09/05/20 23:06 09/05/20 23:06 Labs: Laboratory Results - last 24 hr 09/05/20 09/05/20 09/05/20 23:06 23:06 23:06 WBC 10.3 RBC 4.23 L Hgb 14.7 Hct 44.4 MCV 105.0 H MCH 34.8 H MCHC 33.2 RDW 13.8 Plt Count 294 Neut % (Auto) 66.3 Lymph % (Auto) 24.6 L [place] % (Auto) 5.5 Eos % (Auto) 2.8 Baso % (Auto) 0.8 Neut # (Auto) 6900 Lymph # (Auto) 2500 [place] # (Auto) 600 Eos # (Auto) 300 Baso # (Auto) 100 PT 11.0 INR 1.0 APTT 30 Sodium 141 Potassium 4.1 Chloride 108 H Carbon Dioxide 22 BUN 11 Creatinine 1.19 Estimated GFR > 60.0 BUN/Creatinine Ratio 9.2 Glucose 124 H Calcium 9.7 Total Bilirubin 0.4 AST 36 ALT 28 Alkaline Phosphatase 55 Total Creatine Kinase 49 L CK-MB (CK-2) TNP CK-MB (CK-2) Rel Index TNP Troponin I < 0.012 Total Protein 7.5 Albumin 4.4 Globulin 3.1 Albumin/Globulin Ratio 1.4 Lipase 109 SARS-CoV-2 (PCR) 09/06/20 00:35 WBC RBC Hgb Hct MCV MCH MCHC RDW Plt Count Neut % (Auto) Lymph % (Auto) [place] % (Auto) Eos % (Auto) Baso % (Auto) Neut # (Auto) Lymph # (Auto) [place] # (Auto) Eos # (Auto) Baso # (Auto) PT INR APTT Sodium Potassium Chloride Carbon Dioxide BUN Creatinine Estimated GFR BUN/Creatinine Ratio Glucose Calcium Total Bilirubin AST ALT Alkaline Phosphatase Total Creatine Kinase CK-MB (CK-2) CK-MB (CK-2) Rel Index Troponin I Total Protein Albumin Globulin Albumin/Globulin Ratio Lipase SARS-CoV-2 (PCR) Negative Assessment & Plan Assessment & Plan narrative: This is a 65-year-old male with a past medical history significant for CVA with mild left-sided deficits (2019), d ysphagia, hiatal hernia, GERD, depression and anxiety who presents to the ER following 2 syncopal episodes while eating dinner with family. Patient had loss of consciousness approximately 2 minutes total time without seizure activity trauma or injury. The patient describes feeling lightheadedness vision graying out becoming diaphoretic prior to passing out. He regained consciousness and experiences 2nd syncopal event. Patient nausea vomiting post event at the house and while in route with EMS. 1. Syncopal episode, acute, present on admission, active -the patient was [facility] eating dinner with his family at the time of the syncopal episodes. He experienced lightheadedness, vision graying becoming diaphoretic and passing out. -patient is not experienced similar episodes. He denies chest pain or palpitations, headaches. Upon arrival of EMS the patient was hypotensive and re suscitated with fluid in route to the hospital. -considerations for causes syncope include: Arrhythmogenic-patient denies chest pain or palpitations CVA-patient prior CVA mild left-sided residual that is unchanged, no antecedent headache. Seizure-no seizure activity witnessed by family, no urinary incontinence. Vasomotor-no indications of infection, patient is afebrile, normal white count, Orthostatic hypotension - patient was seated at the time of the occurrence and reports no orthostasis. Vasovagal-the patient was eating and has had a history of dysphagia with food bolus blockage however patient states he was not having problems eating. -12 lead EKG is sinus rhythm with incomplete right bundle branch block without ectopy ST or T-wave changes. -labs find no indication for infection or dehydration. -no evidence of aspiration, breath sounds are clear and the patient remains afebrile. -obtain echocardiogram and monitor the patient on telemetry. 2. History CVA, chronic, stable -CVA in 2019 with mild left-sided residual symptoms including left lips, left fingers and plantar surface of toes. -no neurologic changes from baseline. -history of dysphagia or request speech therapy evaluation. -continue home regimen of clopidogrel 75 mg daily. 3. Hyperlipidemia, chronic, stable. -continue home regimen of atorvastatin 20 mg daily at bedtime. VTE prophylaxis: Enoxaparin IV fluid: Initially normal saline 100 cc an hour, discontinue Diet: Heart healthy Code status: Full code. The patient is admitted to the hospital related to the severity of his complaint in the for monitoring and evaluation. The patient is admitted as observation with expected length of stay to be less than 2 midnights. COVID-19 COVID-19 status: Negative Result date/Date tested (Pos, Neg/Pending): 09/06/20 Scores GCS Joselo coma scale eye opening: Spontaneous Joselo coma scale verbal response: Orientated [place] coma scale motor response: Obey commands Joselo coma scale total score: 15 Quality VTE Deep Vein Thrombosis/Pulmonary Embolism Present on Admission: No
[2020-09-06 04:57] LABS: Bacteria Urine None Seen; RBC Urine None Seen (0-5/HPF); WBC Urine None Seen (0-5/HPF)
[2020-09-06 04:58] LABS: Appearance Urine UA CLEAR; Bilirubin Urine UA NEGATIVE (NEGATIVE); Color Urine UA YELLOW; Glucose Urine UA NEGATIVE (Negative); Ketones Urine UA NEGATIVE (NEGATIVE); Leukocyte Esterase Urine UA NEGATIVE (NEGATIVE); Nitrite Urine UA NEGATIVE (Negative); Occult Blood Urine UA NEGATIVE (Negative); Protein Urine UA NEGATIVE (Negative); Specific Gravity Urine UA 1.025 (1.000-1.035); Urobilinogen Urine UA 0.2 E.U./dL (0.2); pH Urine UA 5.5 (4.5-8.0)
--- NOTE | 2020-09-06 04:59 | DI.ECHO.S_ITS ---
[facility]---------+ [facility] +---------+ : : [address] : : : : [id number] : : : : Phone: [phone]+ Echocardiogram Report + + :Name: RICKEY MASSEY Study Date: 09/06/2020 Height: 75 in : :[facility] ReadingLocation: Weight: 250 lb : : Gender: Male BSA: 2.4 m2 : :: 1955 Age: 65 yrs BP: 135/72 mmHg: :Reason For Study: SYNCOPAL EPISODE X2 : :Ordering Physician: MANDY, : :TD Performed By: Sabra Lewis : :Referring: TD GALVAN : + + Interpretation Summary Normal sinus rhythm. Normal LV size; mild concentric LVH; normal wall motion and LV systolic function. EF is 60-65%. Normal chamber sizes. Aortic sclerosis with mild associated stenosis. Otherwise no significant valvular abnormalities. Compared to prior study 12/21/2018 no changes have occurred. Procedure: A two-dimensional transthoracic echocardiogram with color flow and Doppler was performed. The study quality was technically adequate. Comparison is made with the echocardiogram of 12/21/2018. The patient was in sinus rhythm with heart rates between 66-77 bpm during the exam. Left Ventricle: The left ventricle is normal in size. There is mild concentric left ventricular hypertrophy. The ejection fraction is estimated to be 60-65%. Diastolic parameters suggest a relaxation abnormality of the left ventricle, consistent with probable normal filling pressures. Right Ventricle: The right ventricle is mildly dilated. The right ventricular systolic function is normal. Atria: Both atria are normal in size. There is no Doppler evidence for an interatrial shunt. Mitral Valve: The mitral valve is normal in structure and function. There is mild mitral regurgitation. Aortic Valve: The aortic valve is mildly calcified. The aortic valve is trileaflet. There is mild aortic valve sclerosis. There is mild aortic stenosis. The aortic valve mean gradient is 11 mmHg. The peak aortic velocity is 2.2 m/sec. No aortic regurgitation is present. Tricuspid Valve: The tricuspid valve is normal in structure and function. Pulmonary artery pressures cannot be estimated because of the lack of a measurable TR jet velocity but the IVC suggests a CVP of around 3 mmHg. There is trace tricuspid regurgitation. Pulmonic Valve: The pulmonic valve leaflets are thin and pliable; valve motion is normal. There is no pulmonic valvular regurgitation. Great Vessels: The aortic root is normal size. The ascending aorta is mildly enlarged. The IVC is of normal diameter and collapses greater than 50% with a sniff. This suggests a low right atrial pressure of 3 mm Hg. Pericardium/ Pleura There is no pericardial effusion. There is no pleural effusion. MMode/2D Measurements & Calculations LVIDd: 4.4 cm LVOT diam: 2.2 cm LVIDs: 2.9 cm Ao root diam: 3.5 cm FS: 34.8 % asc Aorta Diam: 3.4 cm EPSS: 0.93 cm Ao Arch Diam (Prox Trans): 3.2 cm IVSd: 1.0 cm LVPWd: 1.3 cm LV anders. diameter/BSA (cm/m^2): 1.8 LV sys. diameter/BSA (cm/m^2): 1.2 LA A2 area: 22.0 cm2 RA long axis: 5.7 cm LA A4 area: 22.4 cm2 RA area: 21.5 cm2 LA length (vol): 5.6 cm RA vol: 69.0 ml LA vol: 74.8 ml RA : 28.6 ml/m2 LA vol index: 31.0 ml/m2 IVC diam: 1.9 cm RVD1 (basal): 4.2 cm TAPSE: 2.1 cm Doppler Measurements & Calculations Ao V2 max: 220.8 cm/sec LVOT Max Damon: 109.6 cm/sec Ao V2 mean: 157.1 cm/sec LV V1 max P.8 mmHg Ao max P.5 mmHg LV V1 VTI: 23.4 cm Ao mean P.1 mmHg GWEN(I,D): 1.9 cm2 Ao V2 VTI: 45.0 cm GWEN(V,D): 1.8 cm2 sev ratio: 0.52 GWEN indexed to BSA (cm^2/m^2): 0.79 MV E max damon: 67.7 cm/sec PA V2 max: 61.7 cm/sec MV A max damon: 83.1 cm/sec PA V2 mean: 45.4 cm/sec MV E/A: 0.81 PA mean P.90 mmHg Med Peak E' Damon: 8.0 cm/sec PA pr(Accel): 36.2 mmHg E/E' med: 8.5 Lat Peak E' Damon: 9.2 cm/sec E/E' lat: 7.3 E/e' average: 7.9 MV dec time: 0.23 sec SV(LVOT): 85.7 ml Electronically signed by: Elizabeth Walden M.D. on [place] Physician:09/06/2020 04:48 PM
[2020-09-06 05:10] LABS: Culture Indicated Urine Cult Not Indicated; Hyaline Casts Urine 0-1/LPF; Squamous Epithelial Cell Urine 0-1 /HPF (0-5/HPF)
[2020-09-06 07:13] LABS: Add Manual Diff / Slide Review NO; Basophils Absolute Auto 100 /uL (0-100); Basophils Percent Auto 0.9 % (0-2); Eosinophils Absolute Auto 100 /uL (0-450); Eosinophils Percent Auto 1.3 % (2-4); Hematocrit 40.2 % (41-53); Hemoglobin 13.7 g/dL (13.5-17.5); Lymphocytes Absolute Auto 1800 /uL (1100-4500); Lymphocytes Percent Auto 23.1 % (25-40); Mean Corpuscular HGB Conc 34.2 % (30-36); Mean Corpuscular Hemoglobin 35.7 PG (26-34); Mean Corpuscular Volume 104.3 fL (80-100); Monocytes Absolute Auto 500 /uL (0-900); Monocytes Percent Auto 5.7 % (3-14); Neutrophils Absolute Auto 5500 /uL (1500-7000); Platelet Count 252 X10^3/uL (150-400); Red Blood Cell Count 3.86 X10^6/uL (4.5-5.9); Red Cell Distribution Width 13.6 % (11.6-14.8)
[2020-09-06 07:20] LABS: BUN Creatinine Ratio 11.6 (6-22); Blood Urea Nitrogen 10 mg/dL (9-20); Calcium 9.4 mg/dL (8.4-10.2); Carbon Dioxide 28 mmol/L (22-32); Chloride 108 mmol/L (98-107); Estimated Glomerular Filt Rate > 60.0 mL/min (>60); Glucose 100 mg/dL (80-110); HEMOLYSIS < 15 (0-50); Potassium 4.3 mmol/L (3.4-5.1); Sodium 139 mmol/L (137-145)
--- NOTE | 2020-09-06 07:45 | ST.IPSCREEN ---
Order received for swallow evaluation given patient's history of dysphagia. Patient explained he has a history of hiatal hernia and scarring of esophagus which causes symptoms (globus sensation) intermittently. He has undergone multiple endoscopies in the past and treatment has consisted of use of PPIs and compensatory strategies. He denies any symptoms at this time and does not feel a swallow evaluation is necessary. Swallow order d/lupis and instructed patient to notify staff if symptoms develop over the course of his stay.
[2020-09-06] MEDS: ENOXAPARIN 40 MG/0.4 ML SYRINGE SUBCUT (08:00)
[2020-09-06] MEDS: CLOPIDOGREL 75 MG TABLET PO (08:00)
--- NOTE | 2020-09-06 13:23 | CM.IDA ---
Initial DCP Assessment Note Patient is a 65 yo male, resident of [place], arrives after multiple syncopal episodes at home, h/o CVA PCP: No PCP listed Payer: [facility] According to Dr Stanford, echo ordered today, possible DC home today or tomorrow pending results. Patient indp in room and expects to return home w/spouse upon DC, denies needs from this [place] Plan: DC likely home w/spouse pending results from w/u today, will follow in case any DC needs or concerns arise. JOSELIN Discharge Planning/Care Management CM Discharge Assessment Start: 09/06/20 13:08 Freq: Status: Active Protocol: Document 09/06/20 13:09 JOSELIN (Rec: 09/06/20 13:23 JOSELIN [id number]) Discharge Planning Assessment Assigned Traveling Buyer BRITNEY Juárez DPOA/Assigned Designee Name Linsey Ardon, spouse Contact Information [phone] Advance Directives? Yes Advance Directives on File No History Provided By Patient,Medical Record Prior Living Arrangements House Household Members spouse Type of transporation used prior to Drives own vehicle admit Independent with ADL's Yes Is patient alert and oriented? Yes Barriers to Discharge No Discharge Plan Home Transportation Arrangement Spouse Referrals Initiated None needed
--- NOTE | 2020-09-06 19:10 | PC.NURSE ---
1829 - Discharge instructions reviewed. Written material on Syncope and CVA. Pt verbalized understanding. Denies further questions. IV site D/c'd, ICU notified of telemetry removal. Pt denies lightheadedness. D/c via wc, pt spouse met at ER entrance.
--- NOTE | 2020-09-12 15:06 | PC.NURSE ---
Late Entry; NS infusion initiated 2/3 at 02:43, stopped per provider order, 04:08.
== END 2020-09-06 19:08 | disposition home or self-care (01) ==
LOC: ED 09-06 02:01 → AC 09-06 02:01
PROVIDERS: Admitting Provider Nurse Practitioner Adult Health; Emergency Provider Emergency Medicine; Referring Provider Emergency Medicine; Visit Provider Nurse Practitioner Adult Health
DX: R55 Syncope and collapse (principal); R11.2 Nausea with vomiting, unspecified; I69.392 Facial weakness following cerebral infarction; I69.391 Dysphagia following cerebral infarction; K44.9 Diaphragmatic hernia without obstruction or gangrene; K21.9 Gastro-esophageal reflux disease without esophagitis; F32.9 Major depressive disorder, single episode, unspecified; F41.9 Anxiety disorder, unspecified; E78.5 Hyperlipidemia, unspecified; Z20.822 Contact with and (suspected) exposure to COVID-19
CPT/HCPCS: 36415; 70450; 80048; 80053; 81001; 82550; 83690; 84484; 85025; 85610; 85730; 87635; 93005; 93306; 94762; 96360; 96372; 99283; 99284; C9803; G0378; J1650

== ENCOUNTER → 2020-09-25 14:42 | Outpatient (CLI) | payer OTHER, SELFPAY ==
[2020-09-07 13:55] VITALS: BMI 31.2
--- NOTE | 2020-09-25 14:44 | DI.US.S_ITS ---
PROCEDURE: US ABD AORTA ANEURYSM SCREEN INDICATIONS: ABDOMINAL AORTIC ANEURYSM SCREENING TECHNIQUE: Real time scanning was performed of the aorta and iliac arteries, with image documentation. COMPARISON: None. FINDINGS: Aorta: Proximal aortic diameter measures 2 cm. Mid-aorta measures 2.1 cm. Distal aortic diameter is 2 cm. Iliac arteries: Right common iliac artery measures 1.2 cm. Left common iliac artery measures 1.5 cm. IMPRESSION: Negative for aneurysm. Dictated by: Matias Ortiz M.D. on 09/25/2020 at 14:08 Approved by: Matias Ortiz M.D. on 09/25/2020 at 14:11
== END ==
PROVIDERS: PCP Student in an Organized Health Care Education/Training Program; Referring Provider Student in an Organized Health Care Education/Training Program; Visit Provider Student in an Organized Health Care Education/Training Program
DX: Z13.6 Encounter for screening for cardiovascular disorders (principal); Z87.891 Personal history of nicotine dependence
CPT/HCPCS: 76706

== ENCOUNTER → 2021-04-23 16:34 | Outpatient (CLI) | payer OTHER, SELFPAY ==
[2020-09-07 13:55] VITALS: BMI 31.2
[2021-04-23 17:42] LABS: Uric Acid 9.6 mg/dL (3.5-8.5)
[2021-04-23 18:12] LABS: Prostate Specific Antigen Scrn 0.687 ng/mL (0.1-4.0)
== END ==
PROVIDERS: PCP Student in an Organized Health Care Education/Training Program; Referring Provider Student in an Organized Health Care Education/Training Program; Visit Provider Student in an Organized Health Care Education/Training Program
DX: Z12.5 Encounter for screening for malignant neoplasm of prostate (principal); M79.675 Pain in left toe(s)
CPT/HCPCS: 36415; 84550; G0103

== ENCOUNTER 2021-04-26 19:29 | Observation (INO) | payer OTHER, SELFPAY ==
[2020-09-07 13:55] VITALS: BMI 31.2
[2021-04-26] VITALS (11 sets, daily range): BP systolic 119–154; BP diastolic 62–84; PULSE 72–84; RESP 16–24; TEMP 36.4; O2SAT 92–97; BMI 30.2
--- NOTE | 2021-04-26 19:51 | ED.NEUROSD ---
HPI - Neuro Symptoms/Deficit General Chief Complaint: Neuro Symptoms/Deficit Stated Complaint: Believe Another Stroke Time Seen by Provider: 04/26/21 19:40 History of Present Illness HPI Narrative: 65-year-old male former smoker with a history stroke with left-sided deficit, hypertension, hyperlipidemia presents with his was concerned that he is having another stroke. He definitely was at his baseline last evening and she thinks he was probably at his baseline his latest 11:00 a.m. but there is a concern of change in his behavior since 5:00 p.m. tonight. He denies any symptoms but she is concerned that he has had trouble finding words, with speech issues and perhaps increased balance problems. He has had no falls or injuries. He has had no fever or chills. He denies any symptoms. Related Data Home Medications Medication Instructions Recorded Confirmed valacyclovir 500 mg tablet 500 mg PO BID PRN 12/21/18 04/23/21 aspirin 81 mg tablet,delayed 81 mg PO DAILY 09/13/20 04/23/21 release Previous Rx's Medication Instructions Recorded clobetasol 0.05 % topical cream 1 applic TOPICAL BID 14 Days #30 g 04/23/21 zolpidem 10 mg tablet (Ambien) 10 mg PO BEDTIME PRN #10 tab 04/23/21 atorvastatin 20 mg tablet (Lipitor) 20 mg PO BEDTIME #90 tab 04/24/21 clopidogrel 75 mg tablet 75 mg PO DAILY #90 tab 04/24/21 colchicine 0.6 mg tablet 0.6 mg PO DAILY #6 tab 04/24/21 metoprolol tartrate 25 mg tablet 25 mg PO BID #120 tab 04/24/21 Allergies Allergy/AdvReac Type Severity Reaction Status Date / Time No Known Drug Allergies Allergy Verified 04/23/21 16:02 Review of Systems Review of Systems Narrative: GENERAL: Denies chills, fatigue, malaise, fever, sweats. HEENT: Denies sinus pain, ear pain, sore throat, difficulty swallowing, dizziness. RESPIRATORY: Denies dyspnea, cough, wheezing, hemoptysis, sputum. CARDIOVASCULAR: Denies chest pain, palpitations, orthopnea, edema, GASTROINTESTINAL: Denies nausea, vomiting, abdominal pain, diarrhea, constipation, melena. : Denies dysuria, frequency, incontinence, hematuria, urinary retention. MUSCULOSKELETAL: denies weakness, joint pain, or bony pain SKIN: Denies rash, skin lesions, or other NEUROLOGIC: See HPI PSYCHIATRIC: No concerning psychosocial issues. 12 point review of systems is negative except for those stated above Patient History Medical History Chronic low back pain Colon polyps CVA (cerebral vascular accident) Depression with anxiety Dysphagia GERD (gastroesophageal reflux disease) Hiatal hernia Surgical History History of colonoscopy History of esophagogastroduodenoscopy (EGD) History of surgery on extremity Family History Father Alcoholism Alzheimer's dementia Mother Cancer Social History household members: spouse Smoking Status: Former smoker alcohol intake: current Smoking Status: Former smoker alcohol intake frequency: 0-2 drinks per day Substance Use Type: does not use Exam Narrative Exam Narrative: GENERAL: [65 year old patient appears stated age. Well-developed patient, in mild distress. HEAD: Atraumatic. Normocephalic. EYES: Pupils equal round and reactive. Extraocular motions intact. No scleral icterus. No injection or drainage. ENT: Nose without bleeding, purulent drainage. Throat without erythema, tonsillar hypertrophy or exudate. Airway patent. NECK: Trachea midline. Non tender CARDIOVASCULAR: Regular rate and rhythm without murmurs, gallops, or rubs. RESPIRATORY: Clear to auscultation. Breath sounds equal bilaterally. No wheezes, rales, or rhonchi. GASTROINTESTINAL: Abdomen soft, non-tender, nondistended. EXTREMITIES: No edema or joint tenderness. BACK: Nontender without deformity or crepitance. No flank tenderness. NEURO: AOx3. SKIN: No rash or erythema of visible areas Initial Vital Signs Initial Vital Signs: Vital Signs Temperature 97.5 F L 04/26/21 19:35 Pulse Rate 84 04/26/21 19:35 Respiratory Rate 16 04/26/21 19:35 Blood Pressure 154/81 H 04/26/21 19:35 Pulse Oximetry 95 04/26/21 19:35 Scores NIH Stroke Scale Level of Conciousness: Alert, keenly responsive Ask month/age: Answers both questions correctly. Open/close eyes, close hand: Performs both tasks correctly Best gaze horizontal: Normal Visual marie: No visual loss Facial palsy: Minor paralysis, flattened nasolabial fold, asymmetry on smiling Left arm drift: Drifts down, not to bed Right arm drift: No drift for full 10 sec Left leg drift: No drift for full 5 sec Right leg drift: No drift for full 5 sec Limb ataxia: Present in one limb Sensory on face/arms/legs: Normal, no sensory loss Best language: No aphasia, normal Dysarthria: Mild to mod,some slurring Extinction or inattention: No abnormality Total NIH Stroke scale score: 4 Course Orders Ordered: ED Orders 04/26/21 19:57 Basic Metabolic Panel Stat Complete Blood Count AUTO DIFF Stat Thyroid Stimulating Hormone Urgent Troponin I Urgent 04/26/21 19:58 CT head/brain wo con Stat Urine Drug Screen, Rapid Stat EKG-12 Lead Stat 04/26/21 19:59 CT angio head and neck Stat 04/26/21 23:15 Education, smoking cessation ONGOING 04/26/21 23:19 Consult to Occupational Therapy Evaluate & Treat Consult to Physical Therapy Evaluate & Treat Consult to Speech Therapy Evaluate & Treat MR stroke Stat 04/27/21 COVID19 - ADMIT ([employer] swab/PCR) Stat 04/27/21 05:00 Complete Blood Count AUTO DIFF Routine Partial Thromboplastin Time Routine Prothrombin Time INR Routine Acetaminophen (Acetaminophen 325 Mg Tablet) 650 mg PO Q6HR PRN PRN Reason: Fever/Mild Pain (1-3) Sodium Chloride (Normal Saline 0.9%) 1,000 mls @ 150 mls/hr IV CONT NALDO Last Admin: 04/26/21 20:48 Dose: 150 mls/hr Documented by: ATAYLOR Naloxone HCl (Naloxone 0.4 Mg/Ml Vial) 0.2 mg IV Q2MIN PRN PRN Reason: Opiate Reversal Vital Signs Vital signs: Vital Signs - 8 hr 04/26/21 19:35 04/26/21 19:44 04/26/21 20:00 Temperature 97.5 F L Pulse Rate 84 80 75 Respiratory Rate 16 22 23 Blood Pressure 154/81 H 142/81 H 144/84 H Pulse Oximetry 95 95 93 04/26/21 20:28 04/26/21 20:30 04/26/21 21:00 Temperature Pulse Rate 83 81 77 Respiratory Rate 18 20 17 Blood Pressure 149/78 H 145/79 H 124/71 Pulse Oximetry 97 95 93 04/26/21 21:30 04/26/21 22:00 04/26/21 22:30 Temperature Pulse Rate 76 73 76 Respiratory Rate 17 16 24 Blood Pressure 119/72 126/62 Pulse Oximetry 92 92 95 04/26/21 23:00 04/26/21 23:30 04/27/21 00:00 Temperature Pulse Rate 73 72 76 Respiratory Rate 17 16 16 Blood Pressure 132/79 131/76 124/69 Pulse Oximetry 94 94 94 04/27/21 00:30 04/27/21 01:00 04/27/21 01:30 Temperature Pulse Rate 73 69 71 Respiratory Rate 13 15 14 Blood Pressure Pulse Oximetry 96 95 95 04/27/21 02:00 04/27/21 02:30 Temperature Pulse Rate 69 71 Respiratory Rate 14 14 Blood Pressure Pulse Oximetry 95 96 MDM - Neuro Symptoms/Deficit Lab Data Result diagrams: 04/26/21 19:57 04/26/21 19:57 Labs: Lab Results 04/26/21 04/26/21 04/26/21 Range/Units 19:57 19:57 19:57 WBC 7.1 (4.5-11.0) X10^3/uL RBC 4.19 L (4.5-5.9) X10^6/uL Hgb 14.8 (13.5-17.5) g/dL Hct 44.3 (41-53) % MCV 105.7 H (80-100) fL MCH 35.4 H (26-34) PG MCHC 33.5 (30-36) % RDW 14.3 (11.6-14.8) % Plt Count 198 (150-400) X10^3/uL Neut % (Auto) 62.1 (50-75) % Lymph % (Auto) 26.1 (25-40) % [place] % (Auto) 6.0 (3-14) % Eos % (Auto) 4.6 H (2-4) % Baso % (Auto) 1.2 (0-2) % Neut # (Auto) 4400 (9114-8356) /uL Lymph # (Auto) 1900 (6938-7273) /uL [place] # (Auto) 400 (0-900) /uL Eos # (Auto) 300 (0-450) /uL Baso # (Auto) 100 (0-100) /uL Sodium 143 (137-145) mmol/L Potassium 4.4 (3.4-5.1) mmol/L Chloride 107 (98-107) mmol/L Carbon Dioxide 26 (22-32) mmol/L BUN 11 (9-20) mg/dL Creatinine 0.82 (0.66-1.25) mg/dL Estimated GFR > 60.0 (>60) mL/min BUN/Creatinine Ratio 13.4 (6-22) Glucose 92 (80-110) mg/dL Calcium 9.6 (8.4-10.2) mg/dL Troponin I < 0.012 (0.01-0.034) ng/mL TSH (0.47-4.68) uIU/mL 04/26/21 Range/Units 19:57 WBC (4.5-11.0) X10^3/uL RBC (4.5-5.9) X10^6/uL Hgb (13.5-17.5) g/dL Hct (41-53) % MCV (80-100) fL MCH (26-34) PG MCHC (30-36) % RDW (11.6-14.8) % Plt Count (150-400) X10^3/uL Neut % (Auto) (50-75) % Lymph % (Auto) (25-40) % [place] % (Auto) (3-14) % Eos % (Auto) (2-4) % Baso % (Auto) (0-2) % Neut # (Auto) (3763-7764) /uL Lymph # (Auto) (3814-0464) /uL [place] # (Auto) (0-900) /uL Eos # (Auto) (0-450) /uL Baso # (Auto) (0-100) /uL Sodium (137-145) mmol/L Potassium (3.4-5.1) mmol/L Chloride (98-107) mmol/L Carbon Dioxide (22-32) mmol/L BUN (9-20) mg/dL Creatinine (0.66-1.25) mg/dL Estimated GFR (>60) mL/min BUN/Creatinine Ratio (6-22) Glucose (80-110) mg/dL Calcium (8.4-10.2) mg/dL Troponin I (0.01-0.034) ng/mL TSH 2.31 (0.47-4.68) uIU/mL Urine Dip Bedside Urine Glucose Negative Bedside Urine Bilirubin - Negative Bedside Urine Ketone - Negative Urine Specific Ashley 1.005 Bedside Urine Occult Blood - Negative Bedside Urine pH 5.5 Bedside Urine Protein - Negative Bedside Urine Urobilinogen - Negative Bedside Urine Nitrite - Negative Bedside Urine Leukocytes - Negative Esterase Imaging Data CT scan - head: Radiologist's Impression: Kye Martinez??65??M??1955 ? Allergy/Adv: No Known Drug Allergies Close Head/Neck CTA (Signed) Yury Feldman - 04/26/[address] (Signed) Yury Feldman - 04/26/21 Abdominal Arterial Study US (Signed) Matias Ortiz - 09/25/20 Echocardiogram Ultrasound (Signed) Elizabeth Walden - 09/06/20 Telemetry Strips 09/06/[address] (Signed) Charlette Recio - 09/06/20 Chest CTA (Signed) Rajendra Qureshi - 12/21/18 Brain MRI (Signed) Andres Hale - 12/21/18 Echocardiogram Ultrasound (Signed) Trey Renee - 12/21/18 Telemetry Strips 12/20/[address] (Signed) Charlette Recio - 12/20/18 [place] [address] CT Scan Report Signed Patient: Kye Martinez MR#: [id number] : 1955 Acct:[id number] Age/Sex: 65 / M Date of Service: 04/26/21 Loc: ED Accession Number: [id number] ?? Procedure: CT head/brain wo con Ordering Provider: Arjun Turner D.O. PROCEDURE:? CT HEAD/BRAIN WO CON ? INDICATIONS:? stroke, left sided problems, history of same ? TECHNIQUE:? Noncontrast 4.5 mm thick angled axial sections acquired from the foramen magnum to the vertex, with coronal and sagittal reformats.? For radiation dose reduction, the following was used:? automated exposure control, adjustment of mA and/or kV according to patient size.? ? COMPARISON:? [facility], CT, CT HEAD/BRAIN WO CON, 09/06/2020, 0:33.? [facility], CT, CT HEAD/BRAIN WO CON, 12/20/2018, 12:53. ? FINDINGS:? Image quality:? Excellent.? ? CSF spaces:? Basal cisterns are patent.? No extra-axial fluid collections.? The ventricles are symmetric in size and shape.? ? Brain:? No intracranial bleeds or masses.? There is cerebral volume loss for age, with resultant ventricular and sulcal prominence.? There are periventricular and deep white matter chronic small vessel ischemic changes.? There is intracranial internal carotid artery atherosclerosis.? ? Skull and face:? Calvarium and visualized facial bones appear intact, without suspicious lesions.? ? Sinuses:? Visualized sinuses and mastoids are clear.? ? IMPRESSION:? 1. CT head without acute intracranial abnormalities or acute calvarial fractures. ? 2. Age-related senescent changes and sequela of chronic small vessel ischemic disease. ? ? ? Dictated by: Yury Feldman M.D. on 04/26/2021 at 20:33 ? ? Approved by: Yury Feldman M.D. on 04/26/2021 at 20:34 ? CTA Head/Neck: Radiologist's Impression: Launch?[place] [address] CT Scan Report Signed Patient: Kye Martinez MR#: [id number] : 1955 Acct:[id number] Age/Sex: 65 / M Date of Service: 04/26/21 Loc: ED Accession Number: [id number] ?? Procedure: CT angio head and neck Ordering Provider: Arjun Turner D.O. PROCEDURE:? CT ANGIO HEAD AND NECK ? INDICATIONS:? stroke, left sided problems, history of same ? TECHNIQUE:? ? After the administration of intravenous contrast, 1 mm thick sections acquired from the aortic arch through the [place] of [place].? Post-contrast 4.5 mm thick sections then re-acquired from the foramen magnum to the vertex.? 3-dimensional lrrsaug-awynbmxjs-wsoneaygjg (MIP) and/or volume rendering reformats were acquired of the central intracranial vasculature and neck separately. ? COMPARISON:? [facility], MR, MR STROKE, 12/21/2018, 7:18.? [facility], CT, CT HEAD/BRAIN WO CON, 04/26/2021, 20:13. ? FINDINGS:? Image quality:? Excellent.? ? BRAIN:? CSF spaces:? Ventricles are stable in size and shape.? Basal cisterns are patent.? No extra-axial fluid collections.? ? ? Brain:? No midline shift.? No intracranial? masses.? Ferguson-white matter interface appears intact.? No abnormal enhancement.? ? Skull and face:? Calvarium and facial bones appear intact, without suspicious lesions.? Orbits appear normal.? ? ? Sinuses:? Sinuses and mastoids are clear. ? ? HEAD CT ANGIOGRAPHY:? Anterior circulation:? Atherosclerotic calcifications of the intracranial internal carotid arteries.? Intracranial internal carotid arteries appear patent without high-grade stenosis. There is flow/opacification within the paired anterior cerebral arteries.? The flow within the middle cerebral arteries appears normal and symmetric.? The anterior communicating artery is seen.? No aneurysms are seen. No occlusion. ? ? Posterior circulation:? ? Visualized portions of the vertebral arteries are patent and join to form a normal appearing basilar artery.? No evidence for high-grade stenosis. No occlusions. There is opacification of the posterior cerebral arteries.? No aneurysms are seen.? ? NECK CT ANGIOGRAPHY:? Carotid system:? Atherosclerotic calcifications of the aortic arch? The great vessels demonstrate a conventional anatomy as they arise from the aortic arch.? The origins of the common carotid arteries appear patent.? The common carotid arteries demonstrate normal caliber and courses.? Atherosclerotic calcifications of the carotid bifurcations bilaterally.? No high-grade stenosis identified.? The internal carotid arteries demonstrate normal calibers and courses.? ? Posterior circulation:? ? The origins of the vertebral arteries both appear patent without hemodynamically significant stenosis.? The more superior extracranial portions of both vertebral arteries also demonstrate normal courses and calibers.? They join to form a normal appearing basilar artery. ? ? ? Soft tissues:? Visualized neck soft tissues demonstrate no suspicious abnormalities. ? ? Bones:? No suspicious bony lesions.? Visualized cervical spine appears normally aligned.? No acute compression fractures of the vertebral bodies.? Multilevel spondylosis.? Findings are most severe from C4-5 through C6-7.? Craniocervical junction is intact.? ? IMPRESSION:? ? Negative CT angiogram of the intracranial arterial vasculature. ? Negative CT angiogram of the cervical arterial vasculature. ? Atherosclerotic vascular disease. ? Any quantitative measurements of stenosis were performed using NASCET criteria. ? ? If there is persistent or high clinical suspicion for acute cerebrovascular ischemia/stroke, more sensitive evaluation with brain MRI can be considered. ? ? ? Dictated by: Yury Feldman M.D. on 04/26/2021 at 20:37 ? ? Approved by: Yury Feldman M.D. on 04/26/2021 at 20:48 ? MDM Narrative Medical decision making narrative: patient with stroke like symptoms including difficulty findings words, and trouble with balance since at least 1100 (LKW) and likely much earlier. Outside any window for TPA and no findings suggestive of LVO. Requires hospitalization for further workup. Discharge Plan Departure Patient Disposition: Admitted as Observation Clinical Impression: Cerebrovascular accident
--- NOTE | 2021-04-26 19:58 | DI.CT.S_ITS ---
PROCEDURE: CT HEAD/BRAIN WO CON INDICATIONS: stroke, left sided problems, history of same TECHNIQUE: Noncontrast 4.5 mm thick angled axial sections acquired from the foramen magnum to the vertex, with coronal and sagittal reformats. For radiation dose reduction, the following was used: automated exposure control, adjustment of mA and/or kV according to patient size. COMPARISON: [facility], CT, CT HEAD/BRAIN WO CON, 09/06/2020, 0:33. [facility], CT, CT HEAD/BRAIN WO CON, 12/20/2018, 12:53. FINDINGS: Image quality: Excellent. CSF spaces: Basal cisterns are patent. No extra-axial fluid collections. The ventricles are symmetric in size and shape. Brain: No intracranial bleeds or masses. There is cerebral volume loss for age, with resultant ventricular and sulcal prominence. There are periventricular and deep white matter chronic small vessel ischemic changes. There is intracranial internal carotid artery atherosclerosis. Skull and face: Calvarium and visualized facial bones appear intact, without suspicious lesions. Sinuses: Visualized sinuses and mastoids are clear. IMPRESSION: 1. CT head without acute intracranial abnormalities or acute calvarial fractures. 2. Age-related senescent changes and sequela of chronic small vessel ischemic disease. Dictated by: Yury Feldman M.D. on 04/26/2021 at 20:33 Approved by: Yury Feldman M.D. on 04/26/2021 at 20:34
--- NOTE | 2021-04-26 19:59 | DI.CT.S_ITS ---
PROCEDURE: CT ANGIO HEAD AND NECK INDICATIONS: stroke, left sided problems, history of same TECHNIQUE: After the administration of intravenous contrast, 1 mm thick sections acquired from the aortic arch through the [place] of [place]. Post-contrast 4.5 mm thick sections then re-acquired from the foramen magnum to the vertex. 3-dimensional tkrbqvt-xkbthrith-czvsqgvnts (MIP) and/or volume rendering reformats were acquired of the central intracranial vasculature and neck separately. COMPARISON: [facility], MR, MR STROKE, 12/21/2018, 7:18. [facility], CT, CT HEAD/BRAIN WO CON, 04/26/2021, 20:13. FINDINGS: Image quality: Excellent. BRAIN: CSF spaces: Ventricles are stable in size and shape. Basal cisterns are patent. No extra-axial fluid collections. Brain: No midline shift. No intracranial masses. Ferguson-white matter interface appears intact. No abnormal enhancement. Skull and face: Calvarium and facial bones appear intact, without suspicious lesions. Orbits appear normal. Sinuses: Sinuses and mastoids are clear. HEAD CT ANGIOGRAPHY: Anterior circulation: Atherosclerotic calcifications of the intracranial internal carotid arteries. Intracranial internal carotid arteries appear patent without high-grade stenosis. There is flow/opacification within the paired anterior cerebral arteries. The flow within the middle cerebral arteries appears normal and symmetric. The anterior communicating artery is seen. No aneurysms are seen. No occlusion. Posterior circulation: Visualized portions of the vertebral arteries are patent and join to form a normal appearing basilar artery. No evidence for high-grade stenosis. No occlusions. There is opacification of the posterior cerebral arteries. No aneurysms are seen. NECK CT ANGIOGRAPHY: Carotid system: Atherosclerotic calcifications of the aortic arch The great vessels demonstrate a conventional anatomy as they arise from the aortic arch. The origins of the common carotid arteries appear patent. The common carotid arteries demonstrate normal caliber and courses. Atherosclerotic calcifications of the carotid bifurcations bilaterally. No high-grade stenosis identified. The internal carotid arteries demonstrate normal calibers and courses. Posterior circulation: The origins of the vertebral arteries both appear patent without hemodynamically significant stenosis. The more superior extracranial portions of both vertebral arteries also demonstrate normal courses and calibers. They join to form a normal appearing basilar artery. Soft tissues: Visualized neck soft tissues demonstrate no suspicious abnormalities. Bones: No suspicious bony lesions. Visualized cervical spine appears normally aligned. No acute compression fractures of the vertebral bodies. Multilevel spondylosis. Findings are most severe from C4-5 through C6-7. Craniocervical junction is intact. IMPRESSION: Negative CT angiogram of the intracranial arterial vasculature. Negative CT angiogram of the cervical arterial vasculature. Atherosclerotic vascular disease. Any quantitative measurements of stenosis were performed using NASCET criteria. If there is persistent or high clinical suspicion for acute cerebrovascular ischemia/stroke, more sensitive evaluation with brain MRI can be considered. Dictated by: Yury Feldman M.D. on 04/26/2021 at 20:37 Approved by: Yury Feldman M.D. on 04/26/2021 at 20:48
[2021-04-26 20:13] LABS: Add Manual Diff / Slide Review NO; Basophils Absolute Auto 100 /uL (0-100); Basophils Percent Auto 1.2 % (0-2); Eosinophils Absolute Auto 300 /uL (0-450); Eosinophils Percent Auto 4.6 % (2-4); Hematocrit 44.3 % (41-53); Hemoglobin 14.8 g/dL (13.5-17.5); Lymphocytes Absolute Auto 1900 /uL (1100-4500); Lymphocytes Percent Auto 26.1 % (25-40); Mean Corpuscular HGB Conc 33.5 % (30-36); Mean Corpuscular Hemoglobin 35.4 PG (26-34); Mean Corpuscular Volume 105.7 fL (80-100); Monocytes Absolute Auto 400 /uL (0-900); Neutrophils Absolute Auto 4400 /uL (1500-7000); Neutrophils Percent Auto 62.1 % (50-75); Platelet Count 198 X10^3/uL (150-400); Red Blood Cell Count 4.19 X10^6/uL (4.5-5.9); Red Cell Distribution Width 14.3 % (11.6-14.8); White Blood Cell Count 7.1 X10^3/uL (4.5-11.0)
[2021-04-26 20:37] LABS: BUN Creatinine Ratio 13.4 (6-22); Blood Urea Nitrogen 11 mg/dL (9-20); Calcium 9.6 mg/dL (8.4-10.2); Carbon Dioxide 26 mmol/L (22-32); Chloride 107 mmol/L (98-107); Estimated Glomerular Filt Rate > 60.0 mL/min (>60); Glucose 92 mg/dL (80-110); HEMOLYSIS < 15 (0-50); Potassium 4.4 mmol/L (3.4-5.1); Sodium 143 mmol/L (137-145)
[2021-04-26] MEDS: SODIUM CHLORIDE 0.9% 1,000 ML 150 ML IV (20:48)
--- NOTE | 2021-04-26 23:19 | DI.MRI.S_ITS ---
PROCEDURE: MR STROKE Pre- and post-contrast brain MRI, non-contrast brain MR angiogram, pre- and postcontrast neck MR angiogram INDICATIONS: neuro def, hx cva 2019 TECHNIQUE: Brain: Noncontrast axial T1 spin echo, axial T2 fast spin echo, sagittal and axial FLAIR, coronal T2 fast spin echo, axial gradient echo, axial diffusion and ADC through the brain. After the administration of contrast, axial 3D VIBE of the cranial vasculature and brain. Brain MRA: Non-contrast 3-D time of flight MR angiogram, with multiple enjulfm-dqpoxbltv-jkhhruxbrm (MIP) reformats performed. Neck MRA: Axial and sagittal TruFISP through the neck. Coronal dynamic MR angiogram during administration of contrast in the arterial and venous phases, with 3-dimenstional ycqjdyx-tmxpjzxoc-phfynskbtg (MIP) reformats constructed from subtraction images. COMPARISON: [facility], CT, CT ANGIO HEAD AND NECK, 04/26/2021, 20:13. [facility], MR, MR STROKE, 12/21/2018, 7:18. FINDINGS: Image quality: Excellent. BRAIN: CSF spaces: Ventricles are normal in size and shape. Basal cisterns are patent. No extra-axial fluid collections. Brain: No intracranial bleeds or mass effects. Ferguson-white matter interface is normal. Diffusion weighted images show no acute ischemic insults. Small remote right-sided lacunar infarction. Very mild small vessel ischemic change. Brainstem appears normal. Normal intravascular flow voids are present. No abnormal intracranial enhancement. Skull and face: Calvarial marrow signal is normal. Orbits appear normal. Sinuses: Sinuses and mastoids are clear. BRAIN MR ANGIOGRAM: Anterior circulation: Intracranial internal carotid arteries are normal in size and enhancement. The flow within the paired anterior cerebral arteries is normal and symmetric. The flow within the middle cerebral arteries is normal and symmetric. The anterior communicating artery is seen. No stenoses, occlusions, or aneurysms. Posterior circulation: The visualized portions of the vertebral arteries demonstrate normal caliber, and join to form a normal appearing basilar artery. The flow within the posterior cerebral arteries is normal and symmetric. No stenoses, occlusions, or aneurysms. NECK MR ANGIOGRAM: Carotids: Great vessels demonstrate a conventional anatomy as they arise from the aortic arch. The origins of the common carotid arteries appear patent. The calibers and courses of both common carotid arteries are normal. The bifurcation regions appear normal bilaterally. Widely patent left internal carotid artery. Mild, less than 50% stenosis of the proximal right internal carotid artery. Posterior circulation: The origins of the vertebral arteries appear patent. More superior portions of both vertebral arteries demonstrate normal course and caliber, and join to form a normal appearing basilar artery. Miscellaneous: Subclavian arteries appear patent. Pre-contrast images through the neck show no soft tissue abnormalities. IMPRESSION: BRAIN MRI: Old small right-sided lacunar infarction. Very mild small vessel ischemic change. No evidence acute stroke, hemorrhage, or mass. BRAIN MR ANGIOGRAM: Unremarkable. No stenosis, aneurysm, occlusion, or focal filling defect. NECK MR ANGIOGRAM: Mild, less than 50% proximal right internal carotid artery stenosis. Widely patent left internal carotid. Dictated by: Serge Soler M.D. on 04/27/2021 at 11:03 Approved by: Serge Soler M.D. on 04/27/2021 at 11:14
[2021-04-27] VITALS (10 sets, daily range): BP systolic 124–162; BP diastolic 69–100; PULSE 65–87; RESP 13–17; TEMP 36.2–36.4; O2SAT 94–96
[2021-04-27 00:04] LABS: Troponin I < 0.012 ng/mL (0.01-0.034)
[2021-04-27 00:24] LABS: Thyroid Stimulating Hormone 2.31 uIU/mL (0.47-4.68)
--- NOTE | 2021-04-27 02:58 | PM.HP.1 ---
History of Present Illness History of Present Illness Date Patient Seen: 04/26/21 Time Patient Seen: 23:24 Chief complaint: Believe Another Stroke Narrative: Mr. Kye Martinez is a 65-year-old male with a past medical history significant for CVA with mild left-sided deficits (2019), dysphagia, hiatal hernia, GERD, depression and anxiety who presented with his who was concerned that he is having another stroke. He definitely was at his baseline last evening and she thinks he was probably his Last Known Normal baseline was at 11:00 a.m. but there is a concern of change in his behavior since 5:00 p.m. tonight. He denies any symptoms but she is concerned that he has had trouble finding words, with speech issues and perhaps increased balance problems. He has had no falls or injuries. He denies symptoms of headaches, dizziness, visual changes, chest pain, SOB, nausea, vomiting, or palpitations. The patient has had dysphagia and food bolus obstructionin the past. The patient denies recent flu or cold symptoms, fevers or chills and has had no known COVID-19 exposures. Reports no headaches or dizziness, nasal congestion or sore throat. He denies neck pain or back pain. Has persistent left lip paresthesia residual from his prior CVA. He denies epigastric/abdominal pain, or changes in bowel or bladder. He has paresthesias to the palm sides of his left toes and left finger tips also residual from his CVA. Upon admit patient's vitals are stable temp 97.5?, BP 132/79, HR 73, R 17, O2 saturation 94% on room air. All patient's initial lab workup CBC, CMP, liver panel, are all WNL. Head neck CTA are negative for any acute intracranial or intrathoracic acute processes, at head CT is negative for any intracranial acute processes. I personally reviewed EKG normal sinus rhythm with a ventricular rate of [address] or T-wave changes. NIH score 4. Patient admitted for neurological deficit, CVA versus TIA. Patient History Medical History Chronic low back pain Colon polyps CVA (cerebral vascular accident) Depression with anxiety Dysphagia GERD (gastroesophageal reflux disease) Hiatal hernia Surgical History History of colonoscopy History of esophagogastroduodenoscopy (EGD) History of surgery on extremity Family & Social History Family History Father Alcoholism Alzheimer's dementia Mother Cancer Social History: household members spouse Safety & Behavioral: Feels Safe in Current Yes Environment Tobacco & Substance use: Smoking Status Former smoker alcohol intake current alcohol intake frequency 0-2 drinks per day Substance Use Type does not use Meds Home Medications and Allergies Home Medications Medication Instructions Recorded Confirmed Type valacyclovir 500 mg tablet 500 mg PO BID PRN 12/21/18 04/23/21 History aspirin 81 mg tablet,delayed 81 mg PO DAILY 09/13/20 04/23/21 History release clobetasol 0.05 % topical cream 1 applic TOPICAL BID 14 Days #30 g 04/23/21 04/23/21 Rx zolpidem 10 mg tablet (Ambien) 10 mg PO BEDTIME PRN #10 tab 04/23/21 04/23/21 Rx atorvastatin 20 mg tablet (Lipitor) 20 mg PO BEDTIME #90 tab 04/24/21 Rx clopidogrel 75 mg tablet 75 mg PO DAILY #90 tab 04/24/21 Rx colchicine 0.6 mg tablet 0.6 mg PO DAILY #6 tab 04/24/21 04/24/21 Rx metoprolol tartrate 25 mg tablet 25 mg PO BID #120 tab 04/24/21 Rx Allergies Allergy/AdvReac Type Severity Reaction Status Date / Time No Known Drug Allergies Allergy Verified 04/23/21 16:02 Review of Systems Review of Systems Narrative: All 12 point systems reviewed with the patient and are negative except otherwise documented. Exam Vital Signs (past 8 hours): - 04/26/21 19:35 04/26/21 19:44 04/26/21 20:00 Temperature 97.5 F L Pulse Rate 84 80 75 Respiratory Rate 16 22 23 Blood Pressure 154/81 H 142/81 H 144/84 H Pulse Oximetry 95 95 93 04/26/21 20:28 04/26/21 20:30 04/26/21 21:00 Temperature Pulse Rate 83 81 77 Respiratory Rate 18 20 17 Blood Pressure 149/78 H 145/79 H 124/71 Pulse Oximetry 97 95 93 04/26/21 21:30 04/26/21 22:00 04/26/21 22:30 Temperature Pulse Rate 76 73 76 Respiratory Rate 17 16 24 Blood Pressure 119/72 126/62 Pulse Oximetry 92 92 95 04/26/21 23:00 04/26/21 23:30 04/27/21 00:00 Temperature Pulse Rate 73 72 76 Respiratory Rate 17 16 16 Blood Pressure 132/79 131/76 124/69 Pulse Oximetry 94 94 94 Oxygen Delivery Method Room Air Narrative Exam Narrative: General: Patient is a well-developed, well-nourished in no distress at this time. HEENT: Normocephalic, atraumatic, extraocular muscles intact, oral pharynx is clear and mucous membranes are moist. Neck is supple and symmetric, trachea is midline, no adenopathy, no thyroid enlargement, nontender, no masses palpated. Negative for JVD Chest: no nasal flaring, retractions, or tachypneic labored breathing. Lungs: Auscultation of all lung marie are clear without adventitious sounds, wheezes, rhonchi, or rales. Cardio: regular rate and rhythm without murmur, rubs, or gallops, no carotid bruit, no cardiac pulsations present. Abdomen: Soft nontender, negative for organomegaly, or masses. Bowel sounds are present in all 4 quadrants without guarding or rebound, no CVA tenderness. Musculoskeletal: no deformity, crepitus, effusions, cyanosis, clubbing or edema present. intact radial and pedal pulses are normal. Skin: Warm dry and intact without rashes, ulcerations or petechiae. Neuro: Alert and orientated x3, sensation to touch intact. Psych: Patient has a well-kept appearance, appropriate affect, mental status attitude thought context and judgment are appropriate for age. Objective Labs Result Diagrams: 04/26/21 19:57 04/26/21 19:57 Labs: Laboratory Results - last 24 hr 04/26/21 04/26/21 04/26/21 19:57 19:57 19:57 WBC 7.1 RBC 4.19 L Hgb 14.8 Hct 44.3 MCV 105.7 H MCH 35.4 H MCHC 33.5 RDW 14.3 Plt Count 198 Neut % (Auto) 62.1 Lymph % (Auto) 26.1 Hodgeman % (Auto) 6.0 Eos % (Auto) 4.6 H Baso % (Auto) 1.2 Neut # (Auto) 4400 Lymph # (Auto) 1900 Hodgeman # (Auto) 400 Eos # (Auto) 300 Baso # (Auto) 100 Sodium 143 Potassium 4.4 Chloride 107 Carbon Dioxide 26 BUN 11 Creatinine 0.82 Estimated GFR > 60.0 BUN/Creatinine Ratio 13.4 Glucose 92 Calcium 9.6 Troponin I < 0.012 TSH 04/26/21 19:57 WBC RBC Hgb Hct MCV MCH MCHC RDW Plt Count Neut % (Auto) Lymph % (Auto) Hodgeman % (Auto) Eos % (Auto) Baso % (Auto) Neut # (Auto) Lymph # (Auto) Hodgeman # (Auto) Eos # (Auto) Baso # (Auto) Sodium Potassium Chloride Carbon Dioxide BUN Creatinine Estimated GFR BUN/Creatinine Ratio Glucose Calcium Troponin I TSH 2.31 Assessment & Plan Assessment & Plan narrative: This is a 65-year-old male with a past medical history significant for CVA with mild left-sided deficits (2019), dysphagia, hiatal hernia, GERD, depression and anxiety who presents to the ED with his who was concerned that the patient was having another stroke, the denies any symptoms but she is concerned that he has had trouble finding words, with speech issues and perhaps increased balance problems. Last Known normal 11am. Patient admitted for neurological deficit, TIA versus CVA rule out. 1. Neurological deficit, in the setting of history of CVA with chronic left-sided deficit, acute on chronic, present on admission-Stable - CBC, CMP, liver panel, are all WNL. NIH:4 -Head neck CTA are negative for any acute intracranial or cardiopulmonary acute processes. -head CT is negative for any intracranial acute processes. -I personally reviewed EKG normal sinus rhythm with a ventricular rate of [address] or T-wave changes. NIH score 4. -patient's deficit appears to be consistent with previous CVA sequela, and not a new CVA. Will monitor overnight, MR tomorrow. -patient continue ASA, Plavix 75, metoprolol -MR ordered for tomorrow -bedside swallow, aspiration precautions, monitor overnight -CVA in 2019 with mild left-sided residual symptoms including left lips, left fingers and plantar surface of toes. -Possible neuro change from base line- per SPOUSE -history of dysphagia or request speech therapy evaluation. 3. Hyperlipidemia, chronic, stable. -continue home regimen of atorvastatin 20 mg daily at bedtime. 4. Gout, new onset, present on admission -Continue patient's colchicine 5. Herpes, chronic, present on admission -Hold valacyclovir- not currently having an outbreak 6. Sleep disturbance, chronic, present on admission -continue patient's Ambien at bedtime if needed Code status:Full Surrogate decision maker: Linsey Ardon- Spouse COVID PCR:Pending COVID vaccination: Unknown DVT/VTE prophylaxis: Patient to continue on Plavix 75 mg, and SCDs Disposition: Patient admitted for observation, to monitor overnight and MR tomorrow, expected length of stay less than 2 midnight I have utilized all available immediate resources to obtain, update, or review the patient's current medications. I confirmed that the patient's advanced care plan is present, Code status is documented and/or surrogate decision maker is listed in the patient's medical record. Time Spent With Patient Critical Care time: I spent a total of [] minutes of critical care time on this patient's care today; this time is exclusive of procedural time. Scores GCS Joselo coma scale eye opening: Spontaneous Joselo coma scale verbal response: Orientated Joselo coma scale motor response: Obey commands Joselo coma scale total score: 15 NIHSS Level of Conciousness: Alert, keenly responsive Ask month/age: Answers both questions correctly. Open/close eyes, close hand: Performs both tasks correctly Best gaze horizontal: Normal Visual marie: No visual loss Facial palsy: Minor paralysis, flattened nasolabial fold, asymmetry on smiling Left arm drift: Drifts down, not to bed Right arm drift: No drift for full 10 sec Left leg drift: No drift for full 5 sec Right leg drift: No drift for full 5 sec Limb ataxia: Present in one limb Sensory on face/arms/legs: Normal, no sensory loss Best language: No aphasia, normal Dysarthria: Mild to mod,some slurring Extinction or inattention: No abnormality Total NIH Stroke scale score: 4 Wells' Criteria for PE Clinical signs and symptoms of DVT: No PE is #1 Dx or equally likely: No Heart rate > 100: No Immobilization at least 3 days or surg in previous 4 weeks: No History of PE or DVT: No Hemoptysis: No Malignancy w/Treatment within 6 months or palliative: No Wells' PE Score total: 0
[2021-04-27 04:19] LABS: UR Morphine/Opiate cutoff 300 Negative (Negative); Ur Creatinine 50 (Normal); Ur Specific Gravity 1.015 (Normal); Urine Amphetamines Negative (Negative); Urine Barbiturates Negative (Negative); Urine Benzodiazepines Negative (Negative); Urine Cocaine Negative (Negative); Urine MDMA Negative (Negative); Urine Methadone Negative (Negative); Urine Methamphetamines Negative (Negative); Urine Oxycodone Negative (Negative); Urine Phencyclidine Negative (Negative); Urine Tetrahydrocannabinol Positive (Negative); Urine Tricyclic Antidepressant Negative (Negative); Urine pH 5 (Normal)
[2021-04-27 04:28] LABS: COVID19 - ADMIT (NP swab/PCR) Negative (Negative)
[2021-04-27 05:19] LABS: Add Manual Diff / Slide Review NO; Basophils Absolute Auto 0 /uL (0-100); Basophils Percent Auto 0.7 % (0-2); Eosinophils Absolute Auto 400 /uL (0-450); Eosinophils Percent Auto 5.9 % (2-4); Hemoglobin 14.4 g/dL (13.5-17.5); Lymphocytes Absolute Auto 1800 /uL (1100-4500); Lymphocytes Percent Auto 27.8 % (25-40); Mean Corpuscular HGB Conc 32.8 % (30-36); Mean Corpuscular Hemoglobin 34.9 PG (26-34); Mean Corpuscular Volume 106.3 fL (80-100); Monocytes Absolute Auto 400 /uL (0-900); Monocytes Percent Auto 6.9 % (3-14); Neutrophils Absolute Auto 3800 /uL (1500-7000); Neutrophils Percent Auto 58.7 % (50-75); Platelet Count 201 X10^3/uL (150-400); Red Blood Cell Count 4.14 X10^6/uL (4.5-5.9); Red Cell Distribution Width 14.3 % (11.6-14.8); White Blood Cell Count 6.4 X10^3/uL (4.5-11.0)
[2021-04-27 05:52] LABS: Prothrombin Time 10.6 SECONDS (10.1-12.7)
[2021-04-27 05:55] LABS: PTT Partial Thromboplastin Tim 31 SECONDS (26.4-36.2)
[2021-04-27] MEDS: METOPROLOL IR 25 MG TABLET PO (08:41)
[2021-04-27] MEDS: ASPIRIN EC 81 MG TABLET PO (08:41)
[2021-04-27] MEDS: CLOPIDOGREL 75 MG TABLET PO (08:41)
--- NOTE | 2021-04-27 09:19 | SLP.IPNOTE ---
Pt was seen in his room. Introduced self and purpose for visit. Pt reported that he has had a hiatal hernia, esophageal scarring and GERD for which he takes medication. He reported that he ate his breakfast without difficulty. He was sipping from bedside cup without s/sx aspiration. Pt denied difficulty with speech or expression of thoughts. Pt scheduled for MRI this a.m.. Will await MRI results before discharging pt.
--- NOTE | 2021-04-27 09:45 | OT.IP.EVAL ---
Past Medical History (Last Reviewed 04/27/21 @ 03:10 by Radha Jarvis [facility]) Chronic low back pain Colon polyps CVA (cerebral vascular accident) Depression with anxiety Dysphagia GERD (gastroesophageal reflux disease) Hiatal hernia History of colonoscopy History of esophagogastroduodenoscopy (EGD) History of surgery on extremity Surgical History ([facility] 03[facility] History of colonoscopy History of esophagogastroduodenoscopy (EGD) History of surgery on extremity Occupational Therapy Inpatient Evaluation/Re-Eval M1 PT/OT-IP Prior Functional Status Start: 04/27/21 11:37 Freq: NEEDED Status: Active Protocol: Document 04/27/21 12:15 [facility] (Rec: 04/27/21 12:30 [facility] [id number]) Medical Review Prior Functional Status Medical History Reviewed Yes Diet/Fluid Consistency Regular Communication expresses wants/needs without difficulty Mobility and Gait Pt AMB without AD and within community since prior CVA Activities of Daily Living and IADL's 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 Pt has single flight of stairs within home, rails, office is downstairs Home Environment High Toilet,Walk in Shower Employment Status [employer] Employed [employer] OT-IP Current Condition Start: 04/27/21 12:15 Freq: Status: Active Protocol: Document 04/27/21 12:15 [facility] (Rec: 04/27/21 12:30 [facility] [id number]) Occupational Therapy Current Condition Current Condition Evaluation Date 04/27/21 Treatment Diagnosis Possible TIA versus CVA Diagnosis Onset Date 04/27/21 M3 OT- IP Subjective and Pain Start: 04/27/21 12:15 Freq: Status: Active Protocol: Document 04/27/21 12:15 [facility] (Rec: 04/27/21 12:30 [facility] [id number]) OT- Subjective Occupational Therapy Visit Type Type Initial Evaluation Visit Start Time 09:12 Visit Stop Time 09:45 Total Visit Minutes 33 Occupational Therapy Visit Comments Patient Comments Pt agreed to do OT eval. Patient/Caregiver Goals TO go home. OT Pain Assessment Pain When Pain Assessed At Rest Pain Present Pain Present Denied Pain M4 OT- IP ADL's Start: 04/27/21 12:15 Freq: Status: Active Protocol: Document 04/27/21 12:15 [facility] (Rec: 04/27/21 12:30 [facility] [id number]) OT [id number] Comments OT Self-Feeding Comments Pt states had no issues eating earlier. OT ADL-Grooming General Evaluation Grooming Ability Independent OT ADL-Oral Care General Eval Oral Care Ability Independent OT ADL-Dressing General Eval Upper Body Dressing Ability Independent OT ADL-Toileting General Evaluation Toileting Ability Independent OT ADL-Bathing Comments OT Bathing Comments Pt states to shower at home. M5 OT- IP IADL's Start: 04/27/21 12:15 Freq: Status: Active Protocol: Document 04/27/21 12:15 [facility] (Rec: 04/27/21 12:30 [facility] [id number]) OT-Instrumental Activities of Daily Living Deficits IADL Deficits Identified No Deficits Home Safety Awareness Awareness of Need for Assistance at Home Good Awareness Ability to Problem Solve Emergency Able to Problem Solve Situations Medication Management Medication Management No Deficits Identified Money Management Money Management No Deficits Identified M6 OT- IP Functional Cognition Start: 04/27/21 12:15 Freq: Status: Active Protocol: Document 04/27/21 12:15 [facility] (Rec: 04/27/21 12:30 [facility] [id number]) Cognitive Factors Limiting Selfcare Function Cognitive Ability Level of Alertness Alert Patient Orientation Name,Age,Birthday,Month,Date, Year,Day of Week,Place, Situation Attention Span Ability Capable of Focused Attention, Capable of Sustained Attention Ability to Follow Commands Able to Follow Multi-Step Commands Memory Description No Deficits Noted Safety Awareness No Deficits Noted Problem Solving Ability No deficits Noted Executive Function Ability No Deficits Noted Cognitive Comments Cognitive Assessment Comments Pt scored 61 seconds on [place] Making part B which implies normal for visual attention, task switching, speed of processing, executive functioning, and mental flexibility. Pt noted tremors with right hand thus causing pt to take more time to draw the lines between the numbers and letter. Pt had a CVA in 2018 and pt's score for [place] MAking Part B was 48 seconds. OT- Vision and Hearing OT- Hearing Assessment OT- Hearing Assessment WFL OT- Vision Assessment Visual Acuity Glasses For Reading M7 OT- IP Mobility and Balance Start: 04/27/21 12:15 Freq: Status: Active Protocol: Document 04/27/21 12:15 [facility] (Rec: 04/27/21 12:30 [facility] [id number]) OT- Bed Mobility Assessment Rolling Type of Rolling Roll to Left Level of Assistance Independent Supine to Sit Supine to Sit Assist Independent Sit to Supine Sit to Supine Assist Independent Scooting Scooting to Edge of Bed Independent OT-Transfer Assessment Sit to and From Stand Sit to and from Stand Independent Transfers Transfer Ability Independent Technique Transfer Destination Bed,Chair Devices Transfer Assistive Devices None Comments Mobility Comments Pt able to ambulate without a device on level surfaces independently in the room. OT- Balance Assessment Sitting Balance and Reactions Static Sitting Balance Ability Normal Dynamic Sitting Balance Ability Normal Standing Balance and Reactions Static Standing Balance Ability Normal Dynamic Standing Balance Ability Good Comments Other Balance Tests/Deviations/Treatment Pt able to stand on right and : left foot for 3 seconds. Pt able to turn around 360 degrees with good balance and speed. M8 OT- IP Objective Assessments Start: 04/27/21 12:15 Freq: Status: Active Protocol: Document 04/27/21 12:15 [facility] (Rec: 04/27/21 12:30 [facility] [id number]) OT Gross Range of Motion Upper Extremity Range of Motion Assessment Within Functional Limits OT Strength Upper Extremity Strength Assessment Within Functional Limits Hand Spine Supervisor Strength Hand Dominance Right OT- Coordination Assessment Upper Extremity Finger to Nose Test Left UE Impaired Comments Coordination Comments 9 hole peg test right hand 32 seconds and last time did 28 seconds. Left hand 33 seconds and last time had 40 seconds. All current score below 25% percentile for his age. Pt states has more tremors this morning than usual. OT-Muscle Tone Assessment Muscle Tone WNL Yes OT Sensation Assessment Comments Summary Comments Intact for light touch. M9 OT- IP Assessment and Plan Start: 04/27/21 12:15 Freq: Status: Active Protocol: Document 04/27/21 12:15 [facility] (Rec: 04/27/21 12:30 [facility] [id number]) OT Summary Assessment and Plan Potential Rehabilitation Potential Excellent Analytic Complexity at Evaluation Low Summary OT Impairments Balance Progress Towards Goals Safe For Discharge Assessment Summary Pt here due to feels that pt was having another CVA and having increased word finding and balance issues. Pt feels he is back to baseline needs at this time. Only noted decrease for higher level dynamic balance for pt- however pt states has some balance issues and did some PT after the last CVA. Pt to go home when medically stable. Discharge pt from OT services as pt appears to be at his baseline for OT needs. Frequency of Treatment Frequency Of Treatment Discharge
[2021-04-27] MEDS: LORazepam 2 MG/ML INJ 1 MG IV (10:00)
--- NOTE | 2021-04-27 11:49 | PT.IIE ---
Medical History (Last Reviewed 04/27/21 @ 03:10 by Radha Jarvis [facility]) Chronic low back pain Colon polyps CVA (cerebral vascular accident) Depression with anxiety Dysphagia GERD (gastroesophageal reflux disease) Hiatal hernia Physical Therapy Inpatient Evaluation/Re-Eval M1 PT/OT-IP Prior Functional Status Start: 04/27/21 11:37 Freq: NEEDED Status: Active Protocol: Document 04/27/21 11:20 OF (Rec: 04/27/21 11:48 OF [id number]) Medical Review Prior Functional Status Medical History Reviewed Yes Diet/Fluid Consistency Regular Communication expresses wants/needs without difficulty Mobility and Gait Pt AMB without AD and within community since prior CVA Activities of Daily Living and IADL's 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 PT-IP Current Condition Start: 04/27/21 11:37 Freq: NEEDED Status: Active Protocol: Document 04/27/21 11:20 OF (Rec: 04/27/21 11:48 OF [id number]) Physical Therapy Current Condition Current Condition Evaluation Date 04/27/21 Treatment Diagnosis CVA vs TIA Onset Date 04/26/21 Weight Bearing Status Weight Bearing Status Weight Bear as Tolerated M3 PT-IP Subjective Start: 04/27/21 11:37 Freq: NEEDED Status: Active Protocol: Document 04/27/21 11:20 OF (Rec: 04/27/21 11:48 OF [id number]) Subjective Physical Therapy Visit Type Type Initial Evaluation Visit Start Time 10:55 Visit Stop Time 11:20 Total Visit Minutes 25 Physical Therapy Visit Comments Patient Goals Get back to my house Therapy Pain Assessment Pain When Pain Assessed At Rest Pain Present Pain Present Denied Pain M4 PT-IP Mobility and Gait Start: 04/27/21 11:37 Freq: NEEDED Status: Active Protocol: Document 04/27/21 11:20 OF (Rec: 04/27/21 11:48 OF [id number]) PT-Bed Mobility Assessment Rolling Type of Rolling Log Rolling Level of Assist Independent Supine to Sit Supine to Sit Independent Sit to Supine Sit to Supine Independent Scooting Scooting to Edge of Bed Independent Scooting Up and Down in Bed Independent PT-Transfer Assessment Sit to and From Stand Sit to and from Stand Independent Equipment Transfer Assistive Device None Transfers Transfer Destination Bed,Chair Transfer Technique Stand Pivot Transfer Ability Level of Assist Independent Comments Mobility Comments Pt has good safety awareness with bed<>chair transfers Gait Assessment Gait Gait Assistance Required: Independent Distance (Feet) 100 Able to Maintain Weight Bearing Status Yes During Gait Assistive Devices Assistive Device None Gait Deviations General Gait Pattern Within Normal Limits Comments Gait Comments Pt demonstrates normal gait pattern. Stair Climbing Assessment Comments Stair Climbing Comments Pt declines performing stairs upon evaluation PT-Balance Assessment Sitting Balance and Reactions Static Sitting Balance Ability Normal Dynamic Sitting Balance Ability Normal Standing Balance and Reactions Static Standing Balance Ability Normal Dynamic Standing Balance Ability Normal Comments Other Balance Tests/Deviations/Treatment Pt demonstrates normal : righting reactions, good gaze dissociation, no difficulty dual tasking. M5 PT-IP Objective Assessments Start: 04/27/21 11:37 Freq: NEEDED Status: Active Protocol: Document 04/27/21 11:20 OF (Rec: 04/27/21 11:48 OF [id number]) Orientation Orientation/Cognition Level of Alertness Alert Orientation Name,Age,Birthday,Month,Date, Year,Day of Week,Place, Situation Safety Awareness Understands Safety Issues Memory Description No Deficits Noted Gross Range of Motion Upper Extremity ROM Assessment Within Functional Limits Lower Extremity ROM Assessment Within Functional Limits Strength Lower Extremity Strength Assessment Within Functional Limits Comments Strength Comments Pt demonstrates normal LE strength Coordination Assessment Gross Coordination Gross Coordination WNL Assessment Pronation/Supination Test Normal Performance Heel on Triana Test Normal Performance Sensation Assessment Sensation Gross Sensation Left UE Impaired Light Touch Intact Sensation Description Paresthesia,Tingling Muscle Tone Muscle Tone WNL Yes M6 PT-IP Treatment Start: 04/27/21 11:37 Freq: NEEDED Status: Active Protocol: Document 04/27/21 11:20 OF (Rec: 04/27/21 11:48 OF [id number]) Physical Therapy Treatment Education Education Provided Safety M7 PT-IP Assessment and Plan Start: 04/27/21 11:37 Freq: NEEDED Status: Active Protocol: Document 04/27/21 11:20 OF (Rec: 04/27/21 11:48 OF [id number]) PT Summary Assessment and Plan Potential Rehabilitation Potential Excellent Status of Condition at Evaluation Stable Summary Progress Towards Goals Safe For Discharge Assessment Summary Gigi is a pleasant 65 yo male s/p TIA vs CVA. He had a prior CVA in 2019 which left him with L sided deficits. He reports dizziness, spouse reports word finding trouble prior to arriving at hospital. Pt demonstrates no difficulty with dynamic balance or word finding upon evaluation. He AMB with normal gait pattern, demonstrates normal dynamic balance, and has good safety awareness. He has no further need for skilled therapy. Frequency of Treatment Frequency Of Treatment Discharge Treatment Plan Other Recommendations and Next Treatment Evaluation only Focus Recommendations To Nursing Amount of Assist Needed Independent Discharge Recommendations PT Discharge Recommendations Home Transportation Needs at Discharge Private Vehicle
--- NOTE | 2021-04-27 14:23 | CM.DANOTE ---
Patient is a 65 yo male who was admitted on 04/27/21 for Possible Stroke. Pt has [facility] for insurance and his PCP is Dr. Alonso Lobato. EMR was reviewed. Per , pt with hx of CVA in 2019 and hx of ongoing dysphasia and has depression and anxiety. Pt admitted for workup of CVA vs TIA. Per PT/OT/ST, pt seems to be at baseline and recommending safe d/c home and no further inpt needs. Per MD, pt's results returned normal and stable for d/c home today with no identified barriers to discharge. SW met bedside with pt and explained role and pt is dressed and already received his discharge pwk and confirms he is agreeable with d/c home today and states he is just waiting for his to arrive to transport him home and he has no concerns at this time. 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 Spouse is pt's DPOA and no other local family at this time. Pt was last admitted in Sep 2020 and was able to d/c home with no needs. Plan: Patient to d/c home today via spouse POV and no further SW needs at this time. BRITNEY Barboza Discharge Planning/Care Management Advanced directive, confirm from FAMILY Start: 04/27/21 04:45 Freq: Q24H Status: Discharge Protocol: Document 04/27/21 04:45 DL (Rec: 04/27/21 05:19 DL [id number]) Advance Directive, confirm on record Time 04:40 Person contacted Patient Copy received No CM Discharge Assessment Start: 04/27/21 14:21 Freq: Status: Active Protocol: Document 04/27/21 14:22 BF (Rec: 04/27/21 14:23 BF [id number]) Discharge Planning Assessment Assigned Software Quality Manager BRITNEY Barrera DPOA/Assigned Designee Name spouse Linsey Contact Information [phone] Advance Directives? Yes Advance Directives on File No History Provided By Patient,Medical Record Has Patient been admitted in last 30 No days? Prior Living Arrangements House Household Members spouse Type of transporation used prior to Drives own vehicle admit Independent with ADL's Yes Is patient alert and oriented? Yes Caregiver for Another No Barriers to Discharge No Discharge Plan Home Transportation Arrangement Spouse Referrals Initiated None needed Whiteboard Updated in Patient Room with Yes name and ext. # of Software Quality Manager Review Status In Process Please Provide Date Initial DC 04/27/21 Assessment Was Performed Next Review Type Continued Stay Review
--- NOTE | 2021-04-27 16:08 | PM.DS.1 ---
History of Present Illness History of Present Illness Chief complaint: Believe Another Stroke Narrative: Per Radha Jarvis: ?Mr. Kye Martinez is a 65-year-old male with a past medical history significant for CVA with mild left-sided deficits (2019), dysphagia, hiatal hernia, GERD, depression and anxiety who presented with his who was concerned that he is having another stroke.? He definitely was at his baseline last evening and she thinks he was probably his Last Known Normal baseline was at 11:00 a.m. but there is a concern of change in his behavior since 5:00 p.m. tonight.? He denies any symptoms but she is concerned that he has had trouble finding words, with speech issues and perhaps increased balance problems.? He has had no falls or injuries. He denies symptoms of headaches, dizziness, visual changes, chest pain, SOB, nausea, vomiting, or palpitations.? The patient has had dysphagia and food bolus obstructionin the past.? The patient denies recent flu or cold symptoms, fevers or chills and has had no known COVID-19 exposures.? Reports no headaches or dizziness, nasal congestion or sore throat.? He denies neck pain or back pain.? Has persistent left lip paresthesia residual from his prior CVA.? ? He denies epigastric/abdominal pain, or changes in bowel or bladder.? He has paresthesias to the palm sides of his left toes and left finger tips also residual from his CVA. ? Upon admit patient's vitals are stable temp 97.5?, BP 132/79, HR 73, R 17, O2 saturation 94% on room air.? All patient's initial lab workup CBC, CMP, liver panel, are all WNL.? Head neck CTA are negative for any acute intracranial or intrathoracic acute processes, at head CT is negative for any intracranial acute processes.? I personally reviewed EKG normal sinus rhythm with a ventricular rate of [address] or T-wave changes.? NIH score 4.? Patient admitted for neurological deficit, CVA versus TIA. Discharge Providers Provider Date of admission: 04/27/21 04:26 Discharge Date: 04/27/21 Primary care physician: Alonso Lobato MD Consults: 04/26/21 23:19 Consult to Occupational Therapy Evaluate & Treat Comment: CVA -neuro def Physician Instructions: Evaluate and treat Consult to Physical Therapy Evaluate & Treat Comment: CVA-neuro def Physician Instructions: Evaluate and Treat Consult to Speech Therapy Evaluate & Treat Comment: CVA -neuro def, dysphagia? Physician Instructions: Evaluate and treat Discharge provider: Jesus Roberts MD Summary Hospital Course Discharge Diagnosis: 1. Behavior, word difficulty, resolved 2. History of CVA with chronic left sided weakness 3. Hyperlipidemia 4. Gout Hospital Course: Mr. Martinez was admitted initially because of concern for stroke. He had some word finding difficulties, imbalance, and behavior change noted by the . He did not note a significant change. He had workup done with CT head and CTA head/neck and MRI head that showed no acute process. He did recently have THC edibiles and think that was possibly the cause of his symptoms. He was back to normal on discharge. His atorvastatin was increased from 40mg to 20mg daily and he was encouraged to continue on aspirin and plavix and follow up with his pcp to continue to control his blood pressure. Exam Vital Signs (past 8 hours): Oxygen Delivery Method Room Air Oxygen Flow Rate 0 Narrative Exam Narrative: GEN: no acute distress CV: regular rate and rhythm PULM: clear bilaterally ABD: soft, nontender, nondistended EXT: warm and well perfused with no edema NEURO: awake, alert and oriented Objective Labs Result Diagrams: 04/27/21 04:00 04/26/21 19:57 [facility] Medical History Chronic low back pain Colon polyps CVA (cerebral vascular accident) Depression with anxiety Dysphagia GERD (gastroesophageal reflux disease) Hiatal hernia Surgical History History of colonoscopy History of esophagogastroduodenoscopy (EGD) History of surgery on extremity Family History Father Alcoholism Alzheimer's dementia Mother Cancer Social History household members: spouse Smoking Status: Former smoker alcohol intake: current Discharge Plan Discharge Plan Patient Disposition: Home Provider Discharge Comment: Mr. Martinez came in with some slurred speech and a change in his behavior that was noted. He quickly was feeling his normal self again. He had a history of stroke, so workup for stroke was done. MRI showed no evidence of stroke. He was discharged home as he was feeling better with only change in his medication being increasing his atorvastatin dose. To reduce risk of stroke, eating healthy and controlling blood pressure are important. Please follow up with your PCP about blood pressure control. Discharge orders & Medications Prescriptions: New atorvastatin 40 mg tablet 40 mg PO BEDTIME Qty: 30 RF: 0 Continued clopidogrel 75 mg tablet 75 mg PO DAILY Qty: 90 RF: 3 metoprolol tartrate 25 mg tablet 25 mg PO BID Qty: 120 RF: 3 aspirin 81 mg tablet,delayed release (DR/EC) 81 mg PO DAILY RF: 0 zolpidem [Ambien] 10 mg tablet 10 mg PO BEDTIME PRN (Reason: insomnia) Qty: 10 RF: 5 clobetasol 0.05 % cream 1 applic topical BID 14 Days Qty: 30 RF: 0 colchicine 0.6 mg tablet 0.6 mg PO DAILY Qty: 6 RF: 5 Discontinued atorvastatin [Lipitor] 20 mg tablet 20 mg PO BEDTIME Qty: 90 RF: 3 No Action valacyclovir 500 mg tablet 500 mg PO BID Qty: 12 RF: 11 Follow up/Referrals: Alonso Lobato MD [Primary Care Provider] - Visit Report/Discharge Packet Instructions: Progress in Stroke Prevention Discharge Data Primary Care Provider: Alonso Lobato Attending Provider: Radha Jarvis VTE Deep Vein Thrombosis/Pulmonary Embolism Present on Admission: Yes MIPS - DC The patient has current or prior documentation of left ventricular ejection fraction (LVEF) less than 40%, or moderate or severely depressed left ventricular systolic function.: No
== END 2021-04-27 13:00 | disposition home or self-care (01) ==
LOC: ED 04-27 01:15 → AC 04-27 04:26
PROVIDERS: Admitting Provider Nurse Practitioner Family; Emergency Provider Emergency Medicine; PCP Student in an Organized Health Care Education/Training Program; Referring Provider Emergency Medicine; Visit Provider Nurse Practitioner Family
DX: R47.81 Slurred speech (principal); R46.89 Other symptoms and signs involving appearance and behavior; E78.5 Hyperlipidemia, unspecified; M10.9 Gout, unspecified; G47.9 Sleep disorder, unspecified; I69.354 Hemiplegia and hemiparesis following cerebral infarction affecting left non-dominant side; Z87.891 Personal history of nicotine dependence; Z20.822 Contact with and (suspected) exposure to COVID-19; Z79.01 Long term (current) use of anticoagulants
CPT/HCPCS: 36415; 70450; 70496; 70498; 70548; 70553; 80048; 80305; 81003; 84443; 84484; 85025; 85610; 85730; 87635; 93005; 93010; 96361; 96374; 97161; 97165; 99285; C9803; G0378; J2060

== ENCOUNTER → 2022-05-09 09:04 | Outpatient (CLI) | payer OTHER, SELFPAY ==
--- NOTE | 2022-05-09 09:10 | DI.US.S_ITS ---
PROCEDURE: US ABD AORTA ANEURYSM SCREEN INDICATIONS: SCREENING TECHNIQUE: Real time scanning was performed of the aorta and iliac arteries, with image documentation. COMPARISON: [facility], , US ABD AORTA ANEURYSM SCREEN, 09/25/2020, 14:50. FINDINGS: Aorta: Proximal aortic diameter measures 2.7 cm. Mid-aorta measures 2.1 cm. Distal aortic diameter is 2.4 cm. Iliac arteries: Right common iliac artery measures 2.2 cm. Left common iliac artery measures 2.1 cm. Other: Fat containing non reducible periumbilical hernia. Neck measures approximately 2.0 x 2.1 cm. IMPRESSION: 1. No abdominal aortic aneurysm visualized. 2. Fat containing periumbilical hernia. Dictated by: Delroy Young M.D. on 05/09/2022 at 13:48 Approved by: Delroy Young M.D. on 05/09/2022 at 13:51
== END ==
PROVIDERS: PCP Internal Medicine; Referring Provider Internal Medicine; Visit Provider Internal Medicine
DX: Z13.6 Encounter for screening for cardiovascular disorders (principal); K42.9 Umbilical hernia without obstruction or gangrene
CPT/HCPCS: 76706

== ENCOUNTER → 2022-12-12 13:47 | Outpatient (CLI) | payer OTHER, SELFPAY ==
[2022-12-12 14:15] LABS: Add Manual Diff / Slide Review NO; Basophils Absolute Auto 100 /uL (0-100); Basophils Percent Auto 1.3 % (0-2); Eosinophils Absolute Auto 300 /uL (0-450); Eosinophils Percent Auto 3.8 % (2-4); Hematocrit 41.9 % (41-53); Hemoglobin 14.6 g/dL (13.5-17.5); Lymphocytes Absolute Auto 1700 /uL (1100-4500); Lymphocytes Percent Auto 21.7 % (25-40); Mean Corpuscular HGB Conc 34.8 % (30-36); Mean Corpuscular Hemoglobin 35.9 PG (26-34); Mean Corpuscular Volume 103.2 fL (80-100); Monocytes Absolute Auto 600 /uL (0-900); Monocytes Percent Auto 7.1 % (3-14); Neutrophils Absolute Auto 5100 /uL (1500-7000); Neutrophils Percent Auto 66.1 % (50-75); Platelet Count 253 X10^3/uL (150-400); Red Blood Cell Count 4.06 X10^6/uL (4.5-5.9); Red Cell Distribution Width 14.1 % (11.6-14.8); White Blood Cell Count 7.7 X10^3/uL (4.5-11.0)
[2022-12-12 14:27] LABS: Alanine Aminotransferase 38 IU/L (<50); Albumin 4.7 g/dL (3.5-5.0); Albumin Globulin Ratio 1.4 (1.0-2.8); Alkaline Phosphatase 48 U/L (38-126); Aspartate Aminotransferase 40 IU/L (17-59); BUN Creatinine Ratio 13.5 (6-22); Bilirubin Total 1.2 mg/dL (0.2-1.3); Blood Urea Nitrogen 12 mg/dL (9-20); Calcium 9.9 mg/dL (8.4-10.2); Carbon Dioxide 27 mmol/L (22-32); Chloride 102 mmol/L (98-107); Cholesterol 160 mg/dL (140-199); Estimated Glomerular Filt Rate > 60 mL/min (>60); Globulin 3.4 g/dL (1.7-4.1); Glucose 94 mg/dL (80-110); HDL Cholesterol 45 mg/dL (40-60); HEMOLYSIS < 15 (0-50); LDL Cholesterol Calculated 85 mg/dL (<100); Sodium 140 mmol/L (137-145); Total Protein 8.1 g/dL (6.3-8.2); Triglycerides 149 mg/dL (35-150); Uric Acid 8.3 mg/dL (3.5-8.5)
[2022-12-12 14:57] LABS: Prostate Specific Antigen Scrn 0.882 ng/mL (0.1-4.0)
[2022-12-12 14:58] LABS: TSH w/ Reflex to FT4 2.63 uIU/mL (0.47-4.68)
[2022-12-12 15:16] LABS: Vitamin B12 250 pg/mL (239-931)
== END ==
PROVIDERS: PCP Family Medicine; Referring Provider Family Medicine; Visit Provider Family Medicine
DX: E78.2 Mixed hyperlipidemia (principal); Z12.5 Encounter for screening for malignant neoplasm of prostate; I10 Essential (primary) hypertension; E79.0 Hyperuricemia without signs of inflammatory arthritis and tophaceous disease
CPT/HCPCS: 36415; 80053; 80061; 82607; 84443; 84550; 85025; G0103

== ENCOUNTER → 2023-11-05 10:12 | Outpatient (CLI) | payer MEDICARE, SELFPAY ==
[2023-11-05 11:38] LABS: Add Manual Diff / Slide Review NO; Basophils Absolute Auto 100 /uL (0-100); Basophils Percent Auto 1.1 % (0-2); Eosinophils Absolute Auto 300 /uL (0-450); Hemoglobin 14.2 g/dL (13.5-17.5); Lymphocytes Absolute Auto 1600 /uL (1100-4500); Mean Corpuscular HGB Conc 33.8 % (30-36); Mean Corpuscular Hemoglobin 35.2 PG (26-34); Mean Corpuscular Volume 104.1 fL (80-100); Monocytes Absolute Auto 600 /uL (0-900); Monocytes Percent Auto 9.2 % (3-14); Neutrophils Absolute Auto 3500 /uL (1500-7000); Neutrophils Percent Auto 58.7 % (50-75); Platelet Count 180 X10^3/uL (150-400); Red Blood Cell Count 4.03 X10^6/uL (4.5-5.9); Red Cell Distribution Width 15.2 % (11.6-14.8)
[2023-11-05 11:57] LABS: Alanine Aminotransferase 31 IU/L (<50); Albumin 4.1 g/dL (3.5-5.0); Albumin Globulin Ratio 1.4 (1.0-2.8); Alkaline Phosphatase 46 U/L (38-126); Aspartate Aminotransferase 36 IU/L (17-59); BUN Creatinine Ratio 10.8 (6-22); Bilirubin Total 0.8 mg/dL (0.2-1.3); Blood Urea Nitrogen 9 mg/dL (9-20); Calcium 9.3 mg/dL (8.4-10.2); Carbon Dioxide 28 mmol/L (22-32); Chloride 110 mmol/L (98-107); Cholesterol 189 mg/dL (140-199); Estimated Glomerular Filt Rate > 60 mL/min (>60); Globulin 2.9 g/dL (1.7-4.1); Glucose 94 mg/dL (80-110); HDL Cholesterol 68 mg/dL (40-60); HEMOLYSIS < 15 (0-50); LDL Cholesterol Calculated 103 mg/dL (<100); Potassium 4.1 mmol/L (3.4-5.1); Sodium 142 mmol/L (137-145); Triglycerides 91 mg/dL (35-150); Uric Acid 7.8 mg/dL (3.5-8.5)
[2023-11-05 12:26] LABS: Prostate Specific Antigen 0.649 ng/mL (0.10-4.00)
[2023-11-05 12:28] LABS: TSH w/ Reflex to FT4 3.14 uIU/mL (0.47-4.68)
== END ==
PROVIDERS: PCP Family Medicine; Referring Provider Family Medicine; Visit Provider Family Medicine
DX: I63.00 Cerebral infarction due to thrombosis of unspecified precerebral artery (principal); E78.2 Mixed hyperlipidemia; E79.0 Hyperuricemia without signs of inflammatory arthritis and tophaceous disease; E66.9 Obesity, unspecified; I10 Essential (primary) hypertension
CPT/HCPCS: 36415; 80053; 80061; 84153; 84443; 84550; 85025

== ENCOUNTER → 2023-12-18 06:39 | Outpatient (CLI) | payer MEDICARE, SELFPAY ==
--- NOTE | 2023-12-18 06:40 | DI.ECHO.S_ITS ---
[facility] : : [address] : : [place] : : [id number] : : Phone: [phone] Echocardiogram Report + + :Name: RICKEY MASSEY Study Date: 12/18/2023 Height: 73 in : :[facility] ReadingLocation: Weight: 235 lb : : Gender: Male BSA: 2.3 m2 : :: 1955 Age: 68 yrs BP: 164/99 mmHg: :Reason For Study: CARDIAC MURMUR : :Ordering Physician: DAWSON, : :LAURA Performed By: Frankie Munoz : :Referring: LAURA OSMAN : + + Interpretation Summary Normal sinus rhythm. Normal LV size and mildly increased wall thickness. Normal wall motion and LV systolic function. Ejection fraction 60-65%. Stage I diastolic dysfunction. Moderate left atrial enlargement. Otherwise normal chamber sizes. Aortic valve is a trileaflet structure with moderately thickened and calcified with severely reduced leaflet excursion and severe associated aortic stenosis. Peak velocity is 4 m/s and mean gradient is 41 mmHg which is consistent with moderate aortic stenosis. Calculated aortic valve area is 1 power shovel engineer?. Compared to prior study obtained September 06, 2020, aortic stenosis got worse. Peak velocity manav from 2.2 m/s to 4 m/s. Mean gradient manav from 11 mmHg to 41 mmHg. Procedure: A two-dimensional transthoracic echocardiogram with color flow and Doppler was performed. The study quality was technically adequate. Comparison is made with the echocardiogram of 09/06/2020. The patient was in sinus rhythm with heart rates between 61-69 bpm during the exam. Left Ventricle: There is mild concentric left ventricular hypertrophy. The left ventricle is normal in size. The ejection fraction is estimated to be 60- 65%. Right Ventricle: The right ventricle is normal size. The right ventricular systolic function is normal. Atria: The left atrium is moderately dilated. The right atrium is normal in size. The interatrial septum grossly appears intact with no obvious evidence for an atrial septal defect. Mitral Valve: The mitral valve is normal. There is no mitral valve stenosis. There is trace mitral regurgitation. Aortic Valve: There is severe aortic valve sclerosis. There is severe aortic stenosis. The peak aortic velocity is 4.09 m/sec. The aortic valve mean gradient is 41.3 mmHg. No aortic regurgitation is present. Tricuspid Valve: The tricuspid valve is normal. There is no tricuspid stenosis. There is a trace or physiologic amount of tricuspid regurgitation. Pulmonic Valve: The pulmonic valve is not well visualized. There is no pulmonic valvular stenosis. There is no pulmonic valvular regurgitation. Great Vessels: The aortic root is normal size. The dimensions of the ascending aorta are normal. The IVC is dilated (diameter is greater than 2.1 cm) yet it collapses greater than 50% with a sniff. This suggests a right atrial pressure of 8 mm Hg. Pericardium/ Pleura There is no pericardial effusion. There is no pleural effusion. MMode/2D Measurements & Calculations LVIDd: 4.3 cm LVOT diam: 2.1 cm LVIDs: 3.1 cm Ao root diam: 3.5 cm FS: 27.3 % asc Aorta Diam: 3.5 cm IVSd: 1.3 cm Ao Arch Diam (Prox Trans): 2.3 cm LVPWd: 1.3 cm LV anders. diameter/BSA (cm/m^2): 1.9 LV sys. diameter/BSA (cm/m^2): 1.4 LA A2 area: 26.4 cm2 RA long axis: 5.9 cm LA A4 area: 25.7 cm2 RA area: 18.4 cm2 LA length (vol): 6.8 cm RA vol: 48.5 ml LA vol: 83.9 ml RA : 21.1 ml/m2 LA vol index: 36.4 ml/m2 IVC diam: 2.2 cm RVD1 (basal): 3.6 cm RVD2 (mid): 2.9 cm TAPSE: 2.3 cm Doppler Measurements & Calculations Ao V2 max: 409.3 cm/sec LVOT Max Damon: 94.6 cm/sec Ao V2 mean: 301.6 cm/sec LV V1 max P.6 mmHg Ao max P.0 mmHg LV V1 VTI: 28.4 cm Ao mean P.3 mmHg GWEN(I,D): 1.0 cm2 Ao V2 VTI: 97.6 cm GWEN(V,D): 0.81 cm2 sev ratio: 0.29 GWEN indexed to BSA (cm^2/m^2): 0.44 MV E max damon: 64.2 cm/sec PA V2 max: 110.0 cm/sec MV A max damon: 78.6 cm/sec PA V2 mean: 74.2 cm/sec MV E/A: 0.82 PA mean P.5 mmHg Med Peak E' Damon: 6.8 cm/sec PA pr(Accel): 51.6 mmHg E/E' med: 9.5 Lat Peak E' Damon: 9.8 cm/sec E/E' lat: 6.6 E/e' average: 8.0 MV dec time: 0.22 sec SV(OT): 99.8 ml Electronically signed by: Elizabeth Walden M.D. on Reading Physician:12/18/2023 02:34 PM
== END ==
PROVIDERS: PCP Family Medicine; Referring Provider Family Medicine; Visit Provider Family Medicine
DX: I35.0 Nonrheumatic aortic (valve) stenosis (principal); I35.8 Other nonrheumatic aortic valve disorders; R01.1 Cardiac murmur, unspecified
CPT/HCPCS: 93306

== ENCOUNTER 2024-05-10 13:36 | Emergency (ER) | payer MEDICARE, OTHER, SELFPAY ==
[2024-05-10 13:41] VITALS: BP 187/96; PULSE 75; RESP 17; TEMP 36.5; O2SAT 98; BMI 30.2
--- NOTE | 2024-05-10 14:12 | DI.CT.S_ITS ---
PROCEDURE: CT PEL WO CON INDICATIONS: fall TECHNIQUE: After the administration of oral contrast, 5 mm thick sections acquired from the iliac crests to the symphysis. 5 mm coronal and sagittal reformats were then performed. For radiation dose reduction, the following was used: automated exposure control, adjustment of mA and/or kV according to patient size. COMPARISON: None. FINDINGS: Image quality: Diagnostic. PELVIS: Peritoneum and Bowel: Bowel loops demonstrate normal wall thickness and caliber. No free fluid or air. Colonic diverticulosis without evidence of diverticulitis. Pelvic Organs: No pelvic mass. Bladder: Normal wall thickness, accounting for underdistension. No perivesicular fat stranding. Pelvic Nodes: No enlarged lymph nodes. Miscellaneous: Small umbilical hernia containing fat. Bones: No aggressive osseous abnormality. IMPRESSION: No displaced fracture. Dictated by: Gaudencio Armenta M.D. on 05/10/2024 at 15:10 Approved by: Gaudencio Armenta M.D. on 05/10/2024 at 15:17
--- NOTE | 2024-05-10 14:12 | DI.CT.S_ITS ---
PROCEDURE: CT LUMBAR SPINE WO CON INDICATIONS: fall TECHNIQUE: Noncontrast 3 mm thick sections acquired from the T12 level to the sacrum. Sagittal and coronal reformats were constructed. For radiation dose reduction, the following was used: automated exposure control. COMPARISON: None. FINDINGS: Image quality: Excellent. Bones: There is normal bony alignment. There is an acute fracture through the anterior endplate L2, without extension to the posterior elements. Low bone mineralization. No suspicious lytic or blastic bony lesions. No pars defects. Mild to moderate, multilevel degenerative disc disease and facet arthrosis. Moderate spinal canal narrowing at L2-3, L3-4, L4-5 due to broad-based disc bulge, disc osteophyte complex and facet hypertrophy. Soft tissues: No retroperitoneal masses or hematomas. Visualized aorta is normal in caliber. Punctate nonobstructing left-sided nephrolithiasis. IMPRESSION: A1 classification anterior wedge compression deformity of the L2 vertebral body. Moderate, multilevel degenerative disc disease. Of note, there is moderate spinal canal narrowing at L2 through L5 due to degenerative change. Dictated by: Gaudencio Armenta M.D. on 05/10/2024 at 15:04 Approved by: Gaudencio Armenta M.D. on 05/10/2024 at 15:09
--- NOTE | 2024-05-10 14:12 | DI.CT.S_ITS ---
PROCEDURE: CT THORACIC SPINE WO CON INDICATIONS: fall TECHNIQUE: Noncontrast 3 mm thick sections acquired through the region of interest in the thoracic spine. Sagittal and coronal reformats were then constructed. For radiation dose reduction, the following was used: automated exposure control. COMPARISON: None. FINDINGS: Image quality: Diagnostic. Bones: There is normal overall bony alignment. No acute vertebral body compression fractures. No suspicious sclerotic or lytic bony lesions. Central spinal canal is of normal overall caliber. Soft tissues: No paravertebral masses or hematomas. Visualized posteromedial lungs appear clear. IMPRESSION: No acute, displaced fracture or traumatic subluxation. Dictated by: Gaudencio Armenta M.D. on 05/10/2024 at 15:09 Approved by: Gaudencio Armenta M.D. on 05/10/2024 at 15:09
[2024-05-10] MEDS: ONDANSETRON 4 MG ODT PO (14:44)
[2024-05-10] MEDS: KETOROLAC 30 MG/ML VIAL 15 MG IM (14:44)
[2024-05-10 17:09] VITALS: BP 161/75; PULSE 81; RESP 16; O2SAT 97
--- NOTE | 2024-05-10 18:38 | ED_ITS ---
HPI - Fall <Quang Kennedy PA-C - Last Filed: 05/11/24 15:12> General Chief Complaint: Fall Stated Complaint: fall, low back pain Time Seen by Provider: 05/10/24 13:53 Source: patient Mode of arrival: Wheelchair History of Present Illness HPI Narrative: 68-year-old male presents to the ED with pain in the back making it difficult to stand up or move after a mechanical fall that he suffered last night. Patient states he had a mechanical fall last night on his stairs, he fell into a sitting position and hurt his lower back. No head strike, LOC. patient states that he was carrying stuff in his arms and lost balance. Denies numbness, tingling, weakness, urinary incontinence, urinary hesitancy. Pain does not radiate into his legs. Patient is on clopidogrel. No blood thinners. Patient has a history of L4-L5 disc issues. Related Data Previous Rx's Medication Instructions Recorded zolpidem 10 mg tablet (Ambien) 10 mg PO BEDTIME PRN insomnia #10 04/23/21 tabs valacyclovir 500 mg tablet 500 mg PO BID #12 tabs 04/28/21 clopidogrel 75 mg tablet 75 mg PO DAILY #90 tabs 09/08/23 atorvastatin 40 mg tablet 40 mg PO BEDTIME #90 tabs 04/15/24 metoprolol tartrate 25 mg tablet 25 mg PO BID #180 tabs 04/15/24 Allergies Allergy/AdvReac Type Severity Reaction Status Date / Time No Known Drug Allergies Allergy Verified 05/10/24 13:41 Review of Systems <Quang Kennedy PA-C - Last Filed: 05/11/24 15:12> Constitutional Constitutional: Denies chills, Denies fatigue, Denies fever(s), Denies frequent falls, Denies lethargy and Denies weakness Eyes Eyes: Denies change in vision, Denies eye discharge, Denies irritation and Denies loss of vision ENT Ears, Nose, Mouth, and Throat: Denies change in voice, Denies dizziness, Denies neck pain, Denies sore throat and Denies throat swelling Cardiovascular Cardiovascular: Denies chest pain, Denies irregular heart rhythm, Denies lightheadedness, Denies palpitations, Denies dyspnea, Denies dyspnea on exertion and Denies orthopnea Respiratory Respiratory: Denies cough, Denies dyspnea, Denies dyspnea on exertion and Denies wheezing Gastrointestinal Gastrointestinal: Denies abdominal pain, Denies change in bowel habits, Denies diarrhea, Denies nausea and Denies vomiting Musculoskeletal Musculoskeletal: Reports back pain, Denies neck pain and Denies numbness Integumentary/Breasts Skin/Breast: Denies pruritus, Denies erythema, Denies rash and Denies wounds Neurologic Neurologic: Denies behavioral changes, Denies confusion, Denies dizziness, Denies frequent falls, Denies loss of vision, Denies numbness and Denies weakness Psychiatric Psychiatric: Denies anxiety, Denies behavioral changes, Denies confusion, Denies depression, Denies homicidal ideation and Denies suicidal ideation Endocrine Endocrine: Denies fatigue, Denies flushing and Denies palpitations Hematologic/Lymphatic Hematologic/Lymphatic: Denies easy bruising Allergic/Immunologic Allergic/Immunologic: Denies urticaria, Denies throat swelling and Denies wheezing Patient History <Quang Kennedy PA-C - Last Filed: 05/11/24 15:12> Medical History Aortic stenosis Essential tremor Chronic low back pain Colon polyps GERD (gastroesophageal reflux disease) Depression with anxiety Dysphagia Hiatal hernia CVA (cerebral vascular accident) Surgical History History of colonoscopy History of esophagogastroduodenoscopy (EGD) History of surgery on extremity Family History Father Alcoholism Alzheimer's dementia Mother Cancer Social History household members: spouse Smoking Status: Former smoker alcohol intake: current Smoking Status: Former smoker alcohol intake frequency: 0-2 drinks per day Substance Use Type: does not use Exam <Quang Kennedy PA-C - Last Filed: 05/11/24 15:12> Narrative Exam Narrative: Const General:?cooperative, healthy appearing and comfortable [facility] Head:?normal to inspection Ears:?hearing grossly normal bilaterally Nose:?external nose normal Face and sinus:?normal facial exam and sinuses nontender Mouth:?oral mucosae normal Throat:?posterior oropharynx normal Eyes General:?appearance normal, both eyes and all related structures Neck Neck:?normal visual inspection and no lymphadenopathy noted Resp Effort & Inspection:?normal respiratory effort Auscultation:?clear to auscultation bilaterally Cardio Rate:?regular rate Rhythm:?regular rhythm Musculoskeletal There is some midline tenderness to palpation in the lower thoracic, upper lumbar regions. Strength and sensation is intact. Patient is neurovascularly intact. Neuro General:?patient alert, patient awake and patient oriented x3 Initial Vital Signs Initial Vital Signs: Vital Signs Temperature 97.7 F 05/10/24 13:41 Pulse Rate 75 05/10/24 13:41 Respiratory Rate 17 05/10/24 13:41 Blood Pressure 187/96 H 05/10/24 13:41 Pulse Oximetry 98 05/10/24 13:41 Oxygen Delivery Method Room Air 05/10/24 13:41 <Mimi Adams DO - Last Filed: 05/16/24 00:49> Initial Vital Signs Initial Vital Signs: Vital Signs Temperature 97.7 F 05/10/24 13:41 Pulse Rate 75 05/10/24 13:41 Respiratory Rate 17 05/10/24 13:41 Blood Pressure 187/96 H 05/10/24 13:41 Pulse Oximetry 98 05/10/24 13:41 Oxygen Delivery Method Room Air 05/10/24 13:41 Course <Quang Kennedy PA-C - Last Filed: 05/11/24 15:12> Orders Ordered: Discontinued Medications Ketorolac Tromethamine (Ketorolac 30 Mg/Ml Vial) 15 mg IM NOW ONE Stop: 05/10/24 14:39 Last Admin: 05/10/24 14:44 Dose: 15 mg Documented By: DEJAH Ondansetron HCl (Ondansetron 4 Mg Odt) 4 mg PO NOW ONE Stop: 05/10/24 14:38 Last Admin: 05/10/24 14:44 Dose: 4 mg Documented By: DEJAH Vital Signs Vital signs: Vital Signs - 8 hr 05/10/24 13:41 05/10/24 17:09 Temperature 97.7 F Pulse Rate 75 81 Respiratory Rate 17 16 Blood Pressure 187/96 H 161/75 H Pulse Oximetry 98 97 Oxygen Delivery Method Room Air Room Air <Mimi Adams DO - Last Filed: 05/16/24 00:49> Orders Ordered: Discontinued Medications Ketorolac Tromethamine (Ketorolac 30 Mg/Ml Vial) 15 mg IM NOW ONE Stop: 05/10/24 14:39 Last Admin: 05/10/24 14:44 Dose: 15 mg Documented By: DEJAH Ondansetron HCl (Ondansetron 4 Mg Odt) 4 mg PO NOW ONE Stop: 05/10/24 14:38 Last Admin: 05/10/24 14:44 Dose: 4 mg Documented By: DEJAH Vital Signs Vital signs: Vital Signs - 8 hr 05/10/24 13:41 05/10/24 17:09 Temperature 97.7 F Pulse Rate 75 81 Respiratory Rate 17 16 Blood Pressure 187/96 H 161/75 H Pulse Oximetry 98 97 Oxygen Delivery Method Room Air Room Air MDM - Fall <Quang Kennedy PA-C - Last Filed: 05/11/24 15:12> MDM Narrative Medical decision making narrative: 68-year-old male presents to the ED with pain in the back making it difficult to stand up or move after a mechanical fall that he suffered last night. Concern for fracture/dislocation versus musculoskeletal sprain/strain versus other. Obtained CT thoracic spine, pelvis, lumbar spine. CT of the lumbar spine shows an A1 classification anterior wedge compression deformity of the L2 vertebral body. CT of the thoracic spine and pelvic CT without acute findings. Patient was given ketorolac with good relief. Discussed findings with patient. Recommend pain control with tramadol, ibuprofen, Tylenol. Recommend follow-up with ortho. ED return precautions discussed with patient. Patient verbalized understanding. Medical records reviewed: Yes Discharge Plan Departure Patient Disposition: Home Clinical Impression: Closed wedge compression fracture of second lumbar vertebra Qualifiers: Encounter type: initial encounter Qualified Code(s): S32.020A - Wedge compression fracture of second lumbar vertebra, initial encounter for closed fracture Instructions: How to Prevent Falls Activity Restrictions/Additional Instructions: You were evaluated in the ED today for a back injury. You have an anterior wedge compression fracture of L2. The fracture is stable. Please follow-up with [facility] by calling [phone]. You have been prescribed some pain medications for the next few days. Please be aware that the medications can make you sleepy, therefore please exercise good fall precautions. You may also take 600 mg of ibuprofen every 8 hours with food in addition to the tramadol. Return to the ED if you have worsening symptoms, numbness, tingling, weakness, urinary difficulties. Prescriptions: No Action valacyclovir 500 mg tablet 500 mg PO BID Qty: 12 11RF Rx Instructions: Begin at first sign of outbreak clopidogrel 75 mg tablet 75 mg PO DAILY Qty: 90 3RF metoprolol tartrate 25 mg tablet 25 mg PO BID Qty: 180 2RF atorvastatin 40 mg tablet 40 mg PO BEDTIME Qty: 90 2RF zolpidem [Ambien] 10 mg tablet 10 mg PO BEDTIME PRN (Reason: insomnia) Qty: 10 5RF Referrals: Kirill Antony DO [Primary Care Provider] - Stand Alone Forms: Patient Portal/API ED Sign-out <Mimi Adams DO - Last Filed: 05/16/24 00:49> Cosign ED Attending Saulo Attestation: I was available for consultation.
== END 2024-05-10 17:09 | disposition home or self-care (01) ==
PROVIDERS: Emergency Provider Student in an Organized Health Care Education/Training Program; PCP Family Medicine
DX: S32.020A Wedge compression fracture of second lumbar vertebra, initial encounter for closed fracture (principal); W18.30XA Fall on same level, unspecified, initial encounter
CPT/HCPCS: 72128; 72131; 72192; 96372; 99284; J1885

== ENCOUNTER → 2024-08-03 16:55 | Outpatient (CLI) | payer OTHER, SELFPAY ==
[2024-08-03 18:18] LABS: Add Manual Diff / Slide Review NO; Basophils Absolute Auto 100 /uL (0-100); Basophils Percent Auto 1.1 % (0-2); Eosinophils Absolute Auto 300 /uL (0-450); Eosinophils Percent Auto 2.9 % (2-4); Hematocrit 43.4 % (41-53); Hemoglobin 14.8 g/dL (13.5-17.5); Lymphocytes Absolute Auto 1900 /uL (1100-4500); Lymphocytes Percent Auto 17.8 % (25-40); Mean Corpuscular Hemoglobin 33.5 PG (26-34); Mean Corpuscular Volume 98.5 fL (80-100); Monocytes Absolute Auto 900 /uL (0-900); Monocytes Percent Auto 8.8 % (3-14); Neutrophils Absolute Auto 7400 /uL (1500-7000); Neutrophils Percent Auto 69.4 % (50-75); Platelet Count 339 X10^3/uL (150-400); Red Cell Distribution Width 13.9 % (11.6-14.8); White Blood Cell Count 10.6 X10^3/uL (4.5-11.0)
[2024-08-03 18:32] LABS: Alanine Aminotransferase 22 IU/L (<50); Albumin 4.2 g/dL (3.5-5.0); Albumin Globulin Ratio 1.5 (1.0-2.8); Alkaline Phosphatase 56 U/L (38-126); Aspartate Aminotransferase 26 IU/L (17-59); BUN Creatinine Ratio 13.6 (6-22); Bilirubin Total 0.7 mg/dL (0.2-1.3); Blood Urea Nitrogen 14 mg/dL (9-20); Calcium 9.6 mg/dL (8.4-10.2); Carbon Dioxide 27 mmol/L (22-32); Chloride 104 mmol/L (98-107); Estimated Glomerular Filt Rate > 60 mL/min (>60); Globulin 2.8 g/dL (1.7-4.1); Glucose 101 mg/dL (80-110); HEMOLYSIS < 15 (0-50); Potassium 3.4 mmol/L (3.4-5.1); Sodium 137 mmol/L (137-145)
== END ==
LOC: LAB 16:55
PROVIDERS: PCP Family Medicine; Referring Provider Family Medicine; Visit Provider Family Medicine
DX: R19.7 Diarrhea, unspecified (principal); R53.1 Weakness
CPT/HCPCS: 36415; 80053; 85025